=== PATIENT | female | born 1990 | race Caucasian/White ===

== ENCOUNTER 2016-06-22 19:48 | Emergency (ER) | payer OTHER ==
[~2016-06-22] VITALS: Ht 167.6 cm; Wt 106.6 kg
[~2016-06-22 19:48] MED LIST: ACET-654 PO; ACET50TA PO; ADDE30CA PO; ADDE5TAB5 PO; CYCL10TA PO; GABA600T PO; HYDR-3713 PO; IBUP60TA PO; NORCOTAB PO; PREN1CAP8 PO
[2016-06-22] MEDS ORDERED: SERTRALINE PO (20:02)
[2016-06-22] MEDS ORDERED: DEXTROAMP-AMPHETAMIN PO (20:02)
[2016-06-22] MEDS ORDERED: HYDROXYZINE PO (20:02)
[2016-06-22] MEDS ORDERED: LYRI75CA PO (20:02)
--- NOTE | 2016-06-22 22:20 | REPUSA ---
MRI of the lumbar spine without contrast Clinical statement: Pain. Incontinence. Technique: Multiecho multiplanar MRI images of the lumbar spine were obtained without administration of contrast. No comparison is available. Findings: The lumbar vertebral bodies are in satisfactory position and alignment. No fractures or dis locations are demonstrated. Normal heterogeneous bone marrow signal is noted. No osseous tumors are s een. There is disc height loss and signal loss demonstrated at L5/S1. The other intervertebral disc h eights are well maintained and demonstrate normal signal. The filum terminale and conus medullaris ap pear unremarkable. The spinal cord demonstrates normal signal and contour. The surrounding soft tissu es are within normal limits. There is mild disc bulging at L5/S1. There is no evidence of disc herniation or central canal stenosi s. At the other lumbar vertebral levels, there is no evidence of disc herniation or protrusion. There is no central canal stenosis. The neural foramina are patent bilaterally. Impression: Minimal degenerative disc disease with disc bulging at L5/S1, without evidence of central canal stenosis or neural foraminal narrowing. Otherwise unremarkable examination. ER physician was notified of these findings at 10:16 PM on 06/22/2016.
[2016-06-22 23:09] LABS: METHADONE URINE POSITIVE (NEGATIVE)
[2016-06-22 23:17] VITALS: BP 134/74
[2016-06-22] MEDS ORDERED: MACR100C3 PO (23:35)
[2016-06-22] MEDS ORDERED: KETOROLAC 30 MG/ML VIAL (J1885) As Ordered ONE (23:48)
[2016-06-23] MEDS ORDERED: KETOROLAC 30 MG/ML VIAL (J1885) IM ONE
== END 2016-06-22 23:58 | disposition home or self-care (01) ==
LOC: M ED 21:02
DX: N39.0 Urinary tract infection, site not specified (principal); M54.9 Dorsalgia, unspecified; G89.29 Other chronic pain; F17.210 Nicotine dependence, cigarettes, uncomplicated; Z88.5 Allergy status to narcotic agent; Z79.899 Other long term (current) drug therapy

== ENCOUNTER → 2016-06-25 | Outpatient (CLI) | payer OTHER ==
[~2016-06-25] MED LIST changes: +DEXTROAMP-AMPHETAMIN PO; +HYDROXYZINE PO; +LYRI75CA PO; +MACR100C3 PO; +SERTRALINE PO
--- NOTE | 2016-06-25 17:23 | REP ---
WHOLE-BODY BONE SCAN: 06/25/2016: Comparison: MRI lumbar spine 06/22/2016, x-ray left hip 11/07/2015. Clinical history: Back pain, neck pain. Autoimmune disease. Evaluate for systemic bone abnormalities. Technique: The patient received 21.9 mCi technetium 99m - MDP via an IV. Anterior and posterior delayed images of the whole body along with anterior posterior oblique images of the pelvis, chest, and lateral views of the head and neck were provided. Lung bone activity is noted to be symmetric and normal throughout. There is no abnormal activity about the ribs. The AC and glenohumeral joints, sternoclavicular joints, hips, knees, ankles and feet are normal for age. I see no abnormal uptake in the SI joints or hips. No pelvic abnormality. Uptake in the kidneys and bladder noted and are unremarkable. The cervical spine shows no abnormal uptake. There is some increased uptake in the paranasal sinuses and also about the mandible suggesting chronic sinus and dental disease. No abnormal uptake about the calvarium. With attention to the thoracic and lumbar spine, there was no vertebral body uptake or abnormal posterior element uptake. There are no vertebral body uptake or abnormal posterior element uptake. Sacrum unremarkable. Impression: 1. No scintigraphic evidence for bony metastatic disease or any significant arthritis. There is a bilateral paranasal sinus and mandibular uptake suggesting chronic sinus and dental disease. Otherwise negative. Signed by Priyank Ortiz MD 06/25/2016 08:16 P
== END ==
LOC: M RAD 09:28
PROVIDERS: ATTEND Physical Medicine & Rehabilitation
DX: M47.897 Other spondylosis, lumbosacral region (principal)

== ENCOUNTER → 2016-09-20 | Outpatient (CLI) | payer MEDICAID ==
[~2016-09-20] MED LIST changes: -ACET-654 PO; +ACET1TAB17 PO; +ADDE1TAB14 PO; -ADDE30CA PO; +ADDE30CA3 PO; -ADDE5TAB5 PO; +CONRAY-43 43% 50ML VIAL (Q9960) As Ordered ONE; -MACR100C3 PO; +MACR100C43 PO
--- NOTE | 2016-09-20 12:14 | REP ---
MR arthrogram left hip: History: Left hip pain. Comparison studies: Comparison radiographs November 07, 2015. Comparison bone scan June 25, 2016. Technique: Precontrast imaging includes coronal T1 and T2-weighted scans of both hips. Postcontrast small field of view high resolution axial, coronal and sagittal images are acquired in T1 and T2-weighted scans with fat saturation. MR arthrographic findings: Pre injection MR imaging demonstrates normal cortical and medullary bone signal intensity in the proximal femurs bilaterally. There is no evidence to suggest avascular necrosis. There is a small quantity of hip joint fluid bilaterally and symmetrically. No ovarian or uterine abnormality is seen. No pelvic mass or adenopathy is observed. No abdominal wall defect is observed. Head neck junction morphology is normal in the proximal femur. Post injection MR imaging shows good filling and enhancement of the left hip articulation. There is no evidence of acetabular labral disruption. No loose body is seen. The ligamentum teres is intact. No juxta-articular mass or cyst is seen. Tendon insertions are unremarkable. Impression: Unremarkable MR arthrography left hip. Signed by Jaime Kennedy MD 09/20/2016 01:18 P
--- NOTE | 2016-09-22 08:46 | REP ---
LEFT HIP ARTHROGRAM: The procedure was performed under the direct supervision of Dr. Kennedy. The benefits and risks including but not limited to pain, infection, bleeding and anaphylaxis were explained to the patient and informed consent was obtained. The left femoral neck was localized using fluoroscopic guidance. The skin was prepped and draped in a sterile fashion. 1% lidocaine was used as a local anesthetic. Using fluoroscopic guidance, a 22-gauge spinal needle was inserted and advanced to the femoral neck. 0.5 mL of Conray 43 was injected to verify placement. 11 mL of a solution containing 20 mL of sterile saline and 0.15 mL of ProHance was injected into the joint space. The needle was removed and the patient was taken to MRI for post procedural imaging. The patient tolerated the procedure well and there were immediate complications. 1 second of fluoroscopy time was utilized for this procedure. Reviewed by GUALBERTO Romero 09/22/2016 12:54 PEdited and Signed by Jaime Kennedy MD 09/22/2016 03:25 P
== END ==
LOC: M RADPRO 07:42
PROVIDERS: ATTEND Physical Medicine & Rehabilitation
DX: M25.552 Pain in left hip (principal); Z88.5 Allergy status to narcotic agent
CPT/HCPCS: 27093; 73723; 77002; A9576; Q9960

== ENCOUNTER → 2016-12-21 | Outpatient (REF) | payer OTHER ==
[~2016-12-21] MED LIST changes: -CONRAY-43 43% 50ML VIAL (Q9960) As Ordered ONE
[2016-12-24 00:07] LABS: Candida species Negative (Negative); Gardnerella vaginalis Positive (Negative); Trichamonas vaginalis Negative (Negative)
== END ==
LOC: M SMT 16:53
PROVIDERS: ATTEND Specialist
DX: N89.8 Other specified noninflammatory disorders of vagina (principal)

== ENCOUNTER 2018-12-08 19:16 | Emergency (ER) | payer OTHER ==
[~2018-12-08] VITALS: Ht 170.2 cm; Wt 106.8 kg
[~2018-12-08 19:16] MED LIST changes: -ACET1TAB17 PO; +ACET1TAB55 PO; -ACET50TA PO; -GABA600T PO; +GABA600T4 PO; +HYDR-3715 PO; +IBUP600T42 PO; -IBUP60TA PO; +MAPA500T2 PO; -NORCOTAB PO
[2018-12-08] MEDS ORDERED: METH10CO3 PO (19:48)
[2018-12-08] MEDS ORDERED: LISI-538 (19:48)
[2018-12-08] MEDS ORDERED: BUPR150T5 (19:48)
[2018-12-08] MEDS ORDERED: GABA600T4 (19:48)
[2018-12-08] MEDS ORDERED: NS 1,000 ML IV ONE (20:30)
[2018-12-08 20:51] LABS: BASO % 0.3 % (0.0-1.0); EOS # 0.5 10^3/uL (0.0-0.5); EOS % 7.1 % (0.0-3.0); HEMATOCRIT 34.3 % (36.0-47.0); HEMOGLOBIN 11.5 g/dl (12.0-15.5); LYMPH # 2.5 10^3/uL (1.5-5.0); LYMPH % 38.9 % (24.0-44.0); MEAN CORPUSCULAR HEMOGLOBIN 29.6 pg (27.0-33.0); MEAN CORPUSCULAR HGB CONC 33.5 g/dl (32.0-36.5); MEAN CORPUSCULAR VOLUME 88.4 fl (80.0-96.0); MONO # 0.5 10^3/uL (0.0-0.8); MONO % 6.9 % (0.0-5.0); NEUTROPHILS % 46.6 % (36.0-66.0); PLATELET COUNT, AUTOMATED 209 10^3/uL (150-450); RED BLOOD COUNT 3.88 10^6/uL (4.00-5.40); WHITE BLOOD COUNT 6.5 10^3/uL (4.0-10.0)
[2018-12-08 21:00] LABS: HCG, SERUM QUALITATIVE NEGATIVE (NEGATIVE)
[2018-12-08 21:03] LABS: BLOOD UREA NITROGEN 9 MG/DL (7-18); CARBON DIOXIDE LEVEL 31 MEQ/L (21-32); CHLORIDE LEVEL 104 MEQ/L (98-107); CK-MB VALUE MASS 2.7 NG/ML (<3.6); CPK CREATINE PHOSPHOKINASE 230 U/L (26-192); CREATININE FOR GFR 0.77 MG/DL (0.55-1.30); GLOMERULAR FILTRATION RATE > 60.0 (>60); GLUCOSE, FASTING 104 MG/DL (70-100); MB/CK RELATIVE INDEX 1.17 (< OR =4); NT-PRO BNP 56 PG/ML (<125); POTASSIUM SERUM 3.9 MEQ/L (3.5-5.1); SODIUM LEVEL 140 MEQ/L (136-145); TROPONIN I < 0.02 NG/ML (< 0.10)
[2018-12-08] MEDS ORDERED: ISOVUE-370 76% 100ML VIAL (Q9967) As Ordered ONE (21:06)
--- NOTE | 2018-12-08 21:43 | REPVR ---
EXAM: CT Angiography Chest With Contrast EXAM DATE/TIME: 12/08/18 (9:13pm) CLINICAL HISTORY: 27 year old female with lower extremity swelling. Possible pulmonary embolism. TECHNIQUE: Imaging protocol: Computed tomographic angiography of the chest with intravenous contrast. 3D rendering: MIP reconstructed images were created and reviewed. Radiation optimization: All CT scans at this facility use at least one of these dose optimization techniques: automated exposure control; mA and/or kV adjustment per patient size (includes targeted exams where dose is matched to clinical indication); or iterative reconstruction. Contrast material: Isovue 370 Contrast volume: 100 ml Contrast route: IV COMPARISON: Frontal CXR of 02/13/15 FINDINGS: Pulmonary arteries: Normal. No pulmonary emboli. Aorta: Unremarkable. No aortic aneurysm. No aortic dissection. Lungs: No consolidation. No masses. Small benign-appearing peripheral MARIA ELENA calcification, far laterally (Ser. 401 - Image #27). Pleural space: Unremarkable. No pneumothorax. No pleural effusions. Heart: Unremarkable. No cardiomegaly. No pericardial effusion. Lymph nodes: Unremarkable. No enlarged lymph nodes. Bones/joints: Unremarkable. No acute fracture. Soft tissues: Unremarkable. IMPRESSION: No acute findings. No filling defects suspicious for pulmonary emboli are seen. There is no CT evidence of aortic dissection nor leakage. No aortic aneurysm is appreciated. Electronically signed by: Julia Mcmahon On 12/08/2018 21:43:04 PM
--- NOTE | 2018-12-08 21:47 | REPVR ---
EXAM: US Duplex Bilateral Lower Extremity Veins EXAM DATE/TIME: 12/08/18 (8:59pm) CLINICAL HISTORY: 27 year old female with bilateral leg swelling (worse on right side) TECHNIQUE: Imaging protocol: Real-time duplex ultrasound of the Bilateral Lower Extremities with 2-D tineo scale, color Doppler flow and spectral waveform analysis with image documentation. Complete examination focused on the bilateral lower extremity veins. COMPARISON: No relevant prior studies available FINDINGS: Right deep veins: Unremarkable. The common femoral, femoral, proximal profunda femoral, popliteal, and upper calf veins are patent without thrombus. Normal Doppler waveforms. Normal compressibility and/or augmentation response. Right superficial veins: Saphenofemoral junction is patent without thrombus. Left deep veins: Unremarkable. The common femoral, femoral, proximal profunda femoral, popliteal and upper calf veins are patent without thrombus. Normal Doppler waveforms. Normal compressibility and/or augmentation response. Left superficial veins: Saphenofemoral junction is patent without thrombus. Soft tissues: Unremarkable. IMPRESSION: No acute findings. No evidence of deep vein thrombosis. Both legs were examined. Electronically signed by: Julia Mcmahon On 12/08/2018 21:46:38 PM
[2018-12-09 00:29] VITALS: BP 124/60
--- NOTE | 2018-12-09 05:55 | ECGEPIP ---
[facility] - ED Test Date: 2018-12-08 Pat Name: KENYA WINN Department: Room: - Gender: Female Rn Liaison: GA : 1990 Requested By: BRANDYN Jimenez Order Number: [id number] Reading MD: Mazin Vargas Measurements Intervals [place] Rate: 109 P: 26 IN: 167 QRS: 29 QRSD: 87 T: 11 QT: 353 QTc: 476 Interpretive Statements SINUS TACHYCARDIA NO PRIORS FOR COMPARISON Electronically Signed on 12-09-2018 5:55:08 EDT by Mazin Vargas
== END 2018-12-09 00:31 | disposition home or self-care (01) ==
LOC: M ED 19:16
DX: R60.0 Localized edema (principal); R00.0 Tachycardia, unspecified; R06.02 Shortness of breath; R53.83 Other fatigue; F17.200 Nicotine dependence, unspecified, uncomplicated; Z88.5 Allergy status to narcotic agent; Z79.899 Other long term (current) drug therapy
CPT/HCPCS: 71275; 80048; 82550; 82553; 83880; 84703; 85025; 93005; 93041; 93970; 94760; 96360; 96361; 99285; Q9967

== ENCOUNTER → 2020-08-22 | Outpatient (CLI) | payer OTHER ==
[~2020-08-22] MED LIST changes: +BUPR150T5; +CYCL-707 PO; -CYCL10TA PO; +GABA600T4; +LISI20TA33; +METH10CO3 PO
[2020-08-22 08:22] LABS: BASO % 0.3 % (0.0-1.0); EOS # 0.1 10^3/uL (0.0-0.5); EOS % 1.9 % (0.0-3.0); HEMATOCRIT 40.3 % (36.0-47.0); HEMOGLOBIN 12.2 g/dl (12.0-15.5); LYMPH # 2.4 10^3/uL (1.5-5.0); LYMPH % 40.9 % (24.0-44.0); MEAN CORPUSCULAR HGB CONC 30.3 g/dl (32.0-36.5); MEAN CORPUSCULAR VOLUME 89.2 fl (80.0-96.0); MONO # 0.4 10^3/uL (0.0-0.8); MONO % 7.4 % (2.0-8.0); NEUTROPHILS # 2.9 10^3/uL (1.5-8.5); NEUTROPHILS % 49.3 % (36.0-66.0); PLATELET COUNT, AUTOMATED 315 10^3/uL (150-450); RED BLOOD COUNT 4.52 10^6/uL (4.00-5.40); WHITE BLOOD COUNT 5.8 10^3/uL (4.0-10.0)
[2020-08-22 08:58] LABS: ALBUMIN 3.5 GM/DL (3.2-5.2); ALT/SGPT 43 U/L (12-78); BILIRUBIN,TOTAL 0.2 MG/DL (0.2-1.0); BLOOD UREA NITROGEN 10 MG/DL (7-18); CALCIUM LEVEL 8.9 MG/DL (8.5-10.1); CARBON DIOXIDE LEVEL 30 MEQ/L (21-32); CHLORIDE LEVEL 104 MEQ/L (98-107); CREATININE FOR GFR 0.69 MG/DL (0.55-1.30); GLOMERULAR FILTRATION RATE > 60.0 (>60); GLUCOSE, FASTING 110 MG/DL (70-100); POTASSIUM SERUM 3.9 MEQ/L (3.5-5.1); SODIUM LEVEL 140 MEQ/L (136-145); TOTAL PROTEIN 7.5 GM/DL (6.4-8.2)
--- NOTE | 2020-08-22 15:10 | ECGEPIP ---
[facility] Test Date: 2020-08-22 Pat Name: KENYA MASTERS Department: Room: - Gender: Female Manager Paper: : 1990 Requested By: Hamzah Navarro Order Number: [id number] Reading MD: Xavier Martinez Measurements Intervals [place] Rate: 102 P: -23 IA: 128 QRS: 48 QRSD: 90 T: 48 QT: 302 QTc: 393 Interpretive Statements Sinus tachycardia Nonspecific ST-T wave abnormality No significant change when compared to prior tracing of 12/08/2018 Electronically Signed on 08-22-2020 15:10:24 EDT by Xavier Martinez
== END ==
LOC: M LAB 07:01
PROVIDERS: ATTEND Psychiatry & Neurology Addiction Psychiatry
DX: F11.20 Opioid dependence, uncomplicated (principal)

== ENCOUNTER 2021-03-30 16:01 | Emergency (ER) | payer OTHER ==
[~2021-03-30] VITALS: Ht 170.2 cm; Wt 114.4 kg
[2021-03-30 22:43] LABS: BASO % 0.3 % (0.0-1.0); EOS # 0.3 10^3/uL (0.0-0.5); EOS % 4.5 % (0.0-3.0); HEMATOCRIT 38.9 % (36.0-47.0); HEMOGLOBIN 12.4 g/dl (12.0-15.5); LYMPH # 2.8 10^3/uL (1.5-5.0); LYMPH % 45.3 % (24.0-44.0); MEAN CORPUSCULAR HEMOGLOBIN 28.1 pg (27.0-33.0); MEAN CORPUSCULAR HGB CONC 31.9 g/dl (32.0-36.5); MONO # 0.3 10^3/uL (0.0-0.8); MONO % 5.3 % (2.0-8.0); NEUTROPHILS # 2.8 10^3/uL (1.5-8.5); NEUTROPHILS % 44.4 % (36.0-66.0); PLATELET COUNT, AUTOMATED 243 10^3/uL (150-450); RED BLOOD COUNT 4.42 10^6/uL (4.00-5.40); WHITE BLOOD COUNT 6.2 10^3/uL (4.0-10.0)
[2021-03-30 23:13] LABS: ALBUMIN 3.8 GM/DL (3.2-5.2); ALT/SGPT 27 U/L (12-78); BILIRUBIN,TOTAL 0.2 MG/DL (0.2-1.0); BLOOD UREA NITROGEN 10 MG/DL (7-18); C REACTIVE PROTEIN QUANTITATIV 0.96 MG/DL (0.00-0.30); CALCIUM LEVEL 8.8 MG/DL (8.5-10.1); CARBON DIOXIDE LEVEL 33 MEQ/L (21-32); CHLORIDE LEVEL 105 MEQ/L (98-107); CREATININE FOR GFR 0.75 MG/DL (0.55-1.30); GLOMERULAR FILTRATION RATE > 60.0 (>60); GLUCOSE, FASTING 87 MG/DL (70-100); POTASSIUM SERUM 4.1 MEQ/L (3.5-5.1); SODIUM LEVEL 140 MEQ/L (136-145); TOTAL PROTEIN 7.5 GM/DL (6.4-8.2)
--- NOTE | 2021-03-30 23:49 | REPVR ---
PROCEDURE INFORMATION: Exam: US Abdomen, Limited; Soft Tissue Exam date and time: 03/30/2021 11:01 PM Age: 30 years old Clinical indication: Abdominal pain; Localized; Left lower quadrant (llq); Additional info: Left lower quadrant abdominal wound, assess for collection TECHNIQUE: Imaging protocol: US abdomen. Real time ultrasound with image documentation. Limited exam focused on the soft tissues. COMPARISON: US OBS FOLL UP OR REPEAT EACH GES 07/22/2015 8:59 AM FINDINGS: No soft tissue edema or fluid collection is visualized. No discrete mass. No soft tissue hyperemia. IMPRESSION: No fluid collection is visualized. Electronically signed by: Curly Saba On 03/30/2021 23:49:07 PM
[2021-03-31] MEDS ORDERED: CEFU50TA PO
[2021-03-31] MEDS ORDERED: ceFAZolin SOD 2 GM in IV 1 EA IV ONE ×2
[2021-03-31] MEDS ORDERED: cefTRIAXone SOD 2 GM in D5W MINI-BAG PLUS 50 ML IV ONE (00:05)
[2021-03-31 01:02] VITALS: BP 112/62
== END 2021-03-31 01:32 | disposition home or self-care (01) ==
LOC: M ED 16:01
DX: L03.311 Cellulitis of abdominal wall (principal); I10 Essential (primary) hypertension; K21.9 Gastro-esophageal reflux disease without esophagitis; M79.7 Fibromyalgia; F32.A Depression, unspecified; F19.10 Other psychoactive substance abuse, uncomplicated
CPT/HCPCS: 76705; 80053; 85025; 86140; 87040; 96365; 99283; J0696

== ENCOUNTER 2021-05-03 11:29 | Emergency (ER) | payer OTHER ==
[~2021-05-03] VITALS: Ht 170.2 cm; Wt 106.8 kg
[~2021-05-03 11:29] MED LIST changes: +CEFU50TA PO
[2021-05-03 13:45] LABS: BASO % 0.4 % (0.0-1.0); EOS # 0.3 10^3/uL (0.0-0.5); EOS % 4.7 % (0.0-3.0); HEMATOCRIT 36.2 % (36.0-47.0); HEMOGLOBIN 11.6 g/dl (12.0-15.5); LYMPH # 2.7 10^3/uL (1.5-5.0); LYMPH % 38.6 % (24.0-44.0); MEAN CORPUSCULAR HEMOGLOBIN 27.5 pg (27.0-33.0); MEAN CORPUSCULAR VOLUME 85.8 fl (80.0-96.0); MONO # 0.4 10^3/uL (0.0-0.8); MONO % 5.1 % (2.0-8.0); NEUTROPHILS # 3.6 10^3/uL (1.5-8.5); NEUTROPHILS % 51.1 % (36.0-66.0); PLATELET COUNT, AUTOMATED 233 10^3/uL (150-450); RED BLOOD COUNT 4.22 10^6/uL (4.00-5.40)
[2021-05-03] MEDS ORDERED: RISP-8 (13:50)
[2021-05-03] MEDS ORDERED: CLON0.2T (13:50)
[2021-05-03] MEDS ORDERED: TRAZ-257 (13:50)
[2021-05-03] MEDS ORDERED: BUPR300T92 (13:50)
[2021-05-03] MEDS ORDERED: ACETAMINOPHEN 500 MG TAB PO ONE (14:05)
[2021-05-03 14:14] LABS: MONO SCRN NEGATIVE (NEGATIVE)
[2021-05-03 14:15] LABS: ALBUMIN 4.3 GM/DL (3.2-5.2); ALT/SGPT 40 U/L (12-78); BILIRUBIN,DIRECT < 0.1 MG/DL (0.0-0.2); BILIRUBIN,TOTAL 0.2 MG/DL (0.2-1.0); FREE T4 0.95 NG/DL (0.76-1.46); LIPASE 72 U/L (73-393); TOTAL PROTEIN 7.6 GM/DL (6.4-8.2)
[2021-05-03] MEDS ORDERED: ISOVUE-370 76% 100ML VIAL As Ordered ONE (14:39)
[2021-05-03 16:11] VITALS: BP 129/79
[2021-05-03 16:28] LABS: GC DNA AMPLIFICATION NEGATIVE (NEGATIVE)
[2021-05-03] MEDS ORDERED: BACT800T5 PO (16:45)
[2021-05-03] MEDS ORDERED: BACTRIM 160MG/800MG DS TAB PO ONE (17:15)
== END 2021-05-03 17:26 | disposition home or self-care (01) ==
LOC: M ED 11:29
DX: N39.0 Urinary tract infection, site not specified (principal); F19.10 Other psychoactive substance abuse, uncomplicated; M79.7 Fibromyalgia; K21.9 Gastro-esophageal reflux disease without esophagitis; G47.33 Obstructive sleep apnea (adult) (pediatric); I10 Essential (primary) hypertension; Z88.6 Allergy status to analgesic agent; Z88.8 Allergy status to other drugs, medicaments and biological substances
CPT/HCPCS: 36415; 74177; 80047; 80076; 81001; 83690; 84439; 84443; 84702; 85025; 86308; 86644; 86645; 87086; 87471; 87808; 87810; 87850; 99284; Q9967

== ENCOUNTER 2021-07-14 14:04 | Emergency (ER) | payer OTHER ==
[~2021-07-14] VITALS: Ht 170.2 cm; Wt 113.4 kg
[~2021-07-14 14:04] MED LIST changes: +BACT800T5 PO; +BUPR-71; -BUPR150T5; +BUPR300T92; +CLON0.2T; +RISP-8; +TRAZ-257
[2021-07-14 14:05] VITALS: BP 147/94
[2021-07-14 17:54] LABS: HEMATOCRIT 34.7 % (36.0-47.0); HEMOGLOBIN 10.9 g/dl (12.0-15.5); MEAN CORPUSCULAR HEMOGLOBIN 27.5 pg (27.0-33.0); MEAN CORPUSCULAR HGB CONC 31.4 g/dl (32.0-36.5); MEAN CORPUSCULAR VOLUME 87.4 fl (80.0-96.0); PLATELET COUNT, AUTOMATED 287 10^3/uL (150-450); RED BLOOD COUNT 3.97 10^6/uL (4.00-5.40); WHITE BLOOD COUNT 6.4 10^3/uL (4.0-10.0)
[2021-07-14 18:23] LABS: ATYPICAL LYMPH 4 % (0-5); EOSINOPHILS 2 % (0-3); LYMPHOCYTES 45 % (16-44); MONOCYTES 4 % (0-5); NEUTROPHILS 45 % (28-66); PLATELET ESTIMATE NORMAL (NORMAL)
[2021-07-14 18:25] LABS: ERYTHROCYTE SEDIMENTATION RATE 51 mm/hr (0-20)
[2021-07-14] MEDS ORDERED: CLINDAMYCIN 900 MG in IV 1 EA IV ONE (19:15)
[2021-07-14 19:20] LABS: BLOOD UREA NITROGEN 11 MG/DL (7-18); C REACTIVE PROTEIN QUANTITATIV 1.92 MG/DL (0.00-0.30); CALCIUM LEVEL 9.2 MG/DL (8.5-10.1); CARBON DIOXIDE LEVEL 29 MEQ/L (21-32); CHLORIDE LEVEL 108 MEQ/L (98-107); GLOMERULAR FILTRATION RATE > 60.0 (>60); GLUCOSE, FASTING 73 MG/DL (70-100); HEPATITIS B CORE ANTIBODY IGM NEGATIVE (NEGATIVE); HEPATITIS B SURFACE ANTIGEN NEGATIVE (NEGATIVE); HEPATITIS C VIRUS ABY INDEX 0.1 INDEX (<0.8); POTASSIUM SERUM 4.2 MEQ/L (3.5-5.1); SODIUM LEVEL 143 MEQ/L (136-145)
[2021-07-14] MEDS ORDERED: CLEO300C2 PO (20:31)
[2021-07-17] MEDS ORDERED: SULF1TAB23 PO (08:54)
== END 2021-07-14 20:56 | disposition home or self-care (01) ==
LOC: M ED 14:04
DX: L03.113 Cellulitis of right upper limb (principal); F19.10 Other psychoactive substance abuse, uncomplicated; R53.83 Other fatigue; I10 Essential (primary) hypertension; R56.9 Unspecified convulsions; M79.7 Fibromyalgia; K21.9 Gastro-esophageal reflux disease without esophagitis; E28.2 Polycystic ovarian syndrome; G47.33 Obstructive sleep apnea (adult) (pediatric); F17.200 Nicotine dependence, unspecified, uncomplicated; Z88.6 Allergy status to analgesic agent; Z88.8 Allergy status to other drugs, medicaments and biological substances; Z79.899 Other long term (current) drug therapy

== ENCOUNTER 2021-08-09 08:33 | Emergency (ER) | payer OTHER ==
[~2021-08-09] VITALS: Ht 170.2 cm; Wt 108.8 kg
[~2021-08-09 08:33] MED LIST changes: +CLEO300C2 PO; +SULF1TAB23 PO
[2021-08-09] MEDS ORDERED: DIVA250T67 (08:45)
[2021-08-09] MEDS ORDERED: NS 1,000 ML IV ONE (11:20)
[2021-08-09 11:48] LABS: BASO % 0.2 % (0.0-1.0); EOS % 0.4 % (0.0-3.0); HEMATOCRIT 39.1 % (36.0-47.0); HEMOGLOBIN 12.7 g/dl (12.0-15.5); LYMPH # 1.7 10^3/uL (1.5-5.0); LYMPH % 36.4 % (24.0-44.0); MEAN CORPUSCULAR HEMOGLOBIN 27.1 pg (27.0-33.0); MEAN CORPUSCULAR HGB CONC 32.5 g/dl (32.0-36.5); MEAN CORPUSCULAR VOLUME 83.4 fl (80.0-96.0); MONO # 0.2 10^3/uL (0.0-0.8); MONO % 4.2 % (2.0-8.0); NEUTROPHILS # 2.8 10^3/uL (1.5-8.5); NEUTROPHILS % 58.6 % (36.0-66.0); PLATELET COUNT, AUTOMATED 294 10^3/uL (150-450); RED BLOOD COUNT 4.69 10^6/uL (4.00-5.40); WHITE BLOOD COUNT 4.8 10^3/uL (4.0-10.0)
[2021-08-09 12:09] LABS: ERYTHROCYTE SEDIMENTATION RATE 64 mm/hr (0-20)
[2021-08-09 12:29] LABS: ALBUMIN 4.4 GM/DL (3.2-5.2); ALT/SGPT 39 U/L (12-78); BILIRUBIN,DIRECT 0.1 MG/DL (0.0-0.2); BILIRUBIN,TOTAL 0.3 MG/DL (0.2-1.0); BLOOD UREA NITROGEN 16 MG/DL (7-18); C REACTIVE PROTEIN QUANTITATIV 1.13 MG/DL (0.00-0.30); CALCIUM LEVEL 9.7 MG/DL (8.5-10.1); CARBON DIOXIDE LEVEL 28 MEQ/L (21-32); CHLORIDE LEVEL 101 MEQ/L (98-107); CREATININE FOR GFR 0.99 MG/DL (0.55-1.30); FREE T4 1.25 NG/DL (0.76-1.46); GLOMERULAR FILTRATION RATE > 60.0 (>60); GLUCOSE, FASTING 94 MG/DL (70-100); MAGNESIUM LEVEL 2.1 MG/DL (1.8-2.4); SODIUM LEVEL 135 MEQ/L (136-145); TOTAL PROTEIN 9.1 GM/DL (6.4-8.2)
[2021-08-09 12:33] VITALS: BP 143/73
[2021-08-09 13:22] LABS: RSV AMPLIFICATION NEGATIVE (NEGATIVE)
[2021-08-09 14:27] LABS: AMPHETAMINES LEVEL URINE NEGATIVE (NEGATIVE); BARBITURATES URINE NEGATIVE (NEGATIVE); BENZODIAZEPINES URINE NEGATIVE (NEGATIVE); CANNABINOIDS URINE NEGATIVE (NEGATIVE); COCAINE METABOLITE URINE NEGATIVE (NEGATIVE); METHADONE URINE POSITIVE (NEGATIVE); OPIATES URINE NEGATIVE (NEGATIVE); PHENCYCLIDINE URINE NEGATIVE (NEGATIVE)
== END 2021-08-09 14:57 | disposition home or self-care (01) ==
LOC: M ED 08:33 → EEVIPCON 08:33 → M ED 14:57
DX: R42 Dizziness and giddiness (principal); I10 Essential (primary) hypertension; F17.200 Nicotine dependence, unspecified, uncomplicated

== ENCOUNTER 2021-10-21 10:31 | Inpatient (IN) | payer MEDICAID, OTHER ==
[~2021-10-21] VITALS: Ht 170.2 cm; Wt 106.8 kg
[~2021-10-21 10:31] MED LIST changes: +DIVA250T67
[2021-10-21] MEDS ORDERED: DIVA500T94 PO (10:41)
[2021-10-21] MEDS ORDERED: CLON-412 PO (10:41)
[2021-10-21 11:24] LABS: HEMOGLOBIN 11.7 g/dl (12.0-15.5); MEAN CORPUSCULAR HEMOGLOBIN 27.4 pg (27.0-33.0); MEAN CORPUSCULAR HGB CONC 32.5 g/dl (32.0-36.5); MEAN CORPUSCULAR VOLUME 84.3 fl (80.0-96.0); PLATELET COUNT, AUTOMATED 234 10^3/uL (150-450); RED BLOOD COUNT 4.27 10^6/uL (4.00-5.40); WHITE BLOOD COUNT 6.5 10^3/uL (4.0-10.0)
[2021-10-21 11:39] LABS: HCG, SERUM QUALITATIVE NEGATIVE (NEGATIVE)
[2021-10-21 11:54] LABS: AMPHETAMINES LEVEL URINE POSITIVE (NEGATIVE); BARBITURATES URINE NEGATIVE (NEGATIVE); BENZODIAZEPINES URINE POSITIVE (NEGATIVE); CANNABINOIDS URINE NEGATIVE (NEGATIVE); COCAINE METABOLITE URINE NEGATIVE (NEGATIVE); METHADONE URINE POSITIVE (NEGATIVE); OPIATES URINE NEGATIVE (NEGATIVE); PHENCYCLIDINE URINE NEGATIVE (NEGATIVE)
[2021-10-21 11:57] LABS: ACETAMINOPHEN LEVEL < 2.0 UG/ML (10.0-30.0); ALT/SGPT 33 U/L (12-78); BILIRUBIN,DIRECT 0.2 MG/DL (0.0-0.2); BILIRUBIN,TOTAL 0.4 MG/DL (0.2-1.0); BLOOD UREA NITROGEN 11 MG/DL (7-18); CARBON DIOXIDE LEVEL 30 MEQ/L (21-32); CHLORIDE LEVEL 105 MEQ/L (98-107); CREATININE FOR GFR 0.85 MG/DL (0.55-1.30); ETHYL ALCOHOL (ETHANOL) < 0.003 % (0.000-0.010); GLOMERULAR FILTRATION RATE > 60.0 (>60); GLUCOSE, FASTING 82 MG/DL (70-100); POTASSIUM SERUM 3.8 MEQ/L (3.5-5.1); SALICYLATE LEVEL 1.8 MG/DL (5.0-30.0); SODIUM LEVEL 140 MEQ/L (136-145); TOTAL PROTEIN 7.7 GM/DL (6.4-8.2)
[2021-10-21 12:00] LABS: RSV AMPLIFICATION NEGATIVE (NEGATIVE)
[2021-10-21] MEDS ORDERED: IBUP-1764 PO (17:31)
[2021-10-21] MEDS ORDERED: HOME MED LIST COMPLETE! XX SCH (17:35)
[2021-10-22] MEDS ORDERED: DIVALPROEX 500MG *ER* TAB PO ONE (09:00)
[2021-10-22] MEDS ORDERED: METHADONE 10MG TAB PO ONE (09:00)
[2021-10-22] MEDS ORDERED: DEPA250T32 PO (09:23)
[2021-10-22] MEDS: IBUPROFEN 600MG TAB PO PRN (16:56)
[2021-10-23] MEDS ORDERED: traZODone 50 MG TAB PO PRN (08:45)
[2021-10-23] MEDS ORDERED: MAALOX 30 ML SUSP *UDC PO PRN (08:45)
[2021-10-23] MEDS ORDERED: MOM 30ML SUSPENSION UDC PO PRN (08:45)
[2021-10-23] MEDS ORDERED: ACETAMINOPHEN TAB 650MG DOSE (2X325MG) PO PRN (08:45)
[2021-10-23] MEDS ORDERED: DIVALPROEX 250 MG TAB PO ONE (09:00)
[2021-10-23] MEDS ORDERED: DIVALPROEX 250 MG TAB PO SCH ×2 (09:00)
[2021-10-23] MEDS: METHADONE 10MG TAB PO SCH (09:33)
[2021-10-23 10:00] VITALS: BP 150/90
[2021-10-23] MEDS: diphenhydrAMINE 50MG CAP PO PRN (12:40)
[2021-10-23] MEDS: IBUPROFEN 600MG TAB PO PRN ×2 (12:40→20:17)
[2021-10-23 18:39] VITALS: BP 144/76
[2021-10-24 06:34] VITALS: BP 132/96
[2021-10-24] MEDS: METHADONE 10MG TAB PO SCH (07:58)
[2021-10-24] MEDS: DIVALPROEX 250 MG TAB PO SCH (07:58)
[2021-10-24] MEDS: IBUPROFEN 600MG TAB PO PRN ×2 (12:35→21:20)
[2021-10-24] MEDS: diphenhydrAMINE 50MG CAP PO PRN (12:35)
[2021-10-24 18:00] VITALS: BP 141/71
[2021-10-24] MEDS: MIRTAZAPINE 15 MG TAB PO SCH (21:19)
[2021-10-24] MEDS: QUEtiapine FUMARATE 50MG TAB PO SCH (21:19)
[2021-10-25 06:24] VITALS: BP 133/76
[2021-10-25] MEDS: DIVALPROEX 250 MG TAB PO SCH (08:07)
[2021-10-25] MEDS: diphenhydrAMINE 50MG CAP PO PRN (08:07)
[2021-10-25] MEDS: METHADONE 10MG TAB PO SCH (08:07)
[2021-10-25] MEDS: OLANZapine ORAL DISINTEGRATING TAB 5MG PO PRN (10:35)
[2021-10-25] MEDS: DOXYCYCLINE HYCLATE 100MG TABLET PO SCH ×2 (13:47→20:38)
[2021-10-25] MEDS: AUGMENTIN 875 MG TAB PO SCH ×2 (13:47→20:38)
[2021-10-25] MEDS: NEOSPORIN TOP OINT 15GM TOP SCH (15:55)
[2021-10-25 18:00] VITALS: BP 150/97
[2021-10-25] MEDS: IBUPROFEN 600MG TAB PO PRN (20:37)
[2021-10-25] MEDS: QUEtiapine FUMARATE 50MG TAB PO SCH (20:38)
[2021-10-25] MEDS: MIRTAZAPINE 15 MG TAB PO SCH (20:38)
[2021-10-26] MEDS: IBUPROFEN 600MG TAB PO PRN ×2 (05:55→12:51)
[2021-10-26 07:05] VITALS: BP 161/98
[2021-10-26 07:43] LABS: CHOLESTEROL RISK RATIO 7.866 (<5)
[2021-10-26] MEDS: DOXYCYCLINE HYCLATE 100MG TABLET PO SCH ×2 (08:07→21:18)
[2021-10-26] MEDS: OLANZapine ORAL DISINTEGRATING TAB 5MG PO PRN (08:07)
[2021-10-26] MEDS: AUGMENTIN 875 MG TAB PO SCH ×2 (08:08→21:19)
[2021-10-26] MEDS: METHADONE 10MG TAB PO SCH (08:08)
[2021-10-26] MEDS: NEOSPORIN TOP OINT 15GM TOP SCH (08:08)
[2021-10-26] MEDS ORDERED: ARIPiprazole 10 MG TAB PO ONE (13:15)
[2021-10-26] MEDS: LIDOCAINE 5% (LIDODERM) PATCH TD SCH (13:18)
[2021-10-26 18:00] VITALS: BP 140/79
[2021-10-26] MEDS: MIRTAZAPINE 15 MG TAB PO SCH (21:19)
[2021-10-26] MEDS: QUEtiapine FUMARATE 50MG TAB PO SCH (21:19)
[2021-10-26] MEDS: **NOTE PATIENT COMMENT** MISC XX SCH (21:20)
[2021-10-27 06:35] VITALS: BP 149/97
[2021-10-27] MEDS: LIDOCAINE 5% (LIDODERM) PATCH TD SCH (08:44)
[2021-10-27] MEDS: METHADONE 10MG TAB PO SCH (08:44)
[2021-10-27] MEDS: diphenhydrAMINE 50MG CAP PO PRN (08:44)
[2021-10-27] MEDS: NEOSPORIN TOP OINT 15GM TOP SCH (08:45)
[2021-10-27] MEDS: DOXYCYCLINE HYCLATE 100MG TABLET PO SCH ×2 (08:45→20:34)
[2021-10-27] MEDS: AUGMENTIN 875 MG TAB PO SCH ×2 (08:45→20:34)
[2021-10-27] MEDS: OLANZapine ORAL DISINTEGRATING TAB 5MG PO PRN (11:14)
[2021-10-27 17:41] VITALS: BP_SYST 114; BP_SYST 138; BP_DIAS 65; BP_DIAS 78
[2021-10-27] MEDS: **NOTE PATIENT COMMENT** MISC XX SCH (20:34)
[2021-10-27] MEDS: MIRTAZAPINE 15 MG TAB PO SCH (20:34)
[2021-10-27] MEDS ORDERED: OLANZapine 5 MG TAB PO SCH (21:00)
[2021-10-28 06:38] VITALS: BP 144/98
[2021-10-28] MEDS: AUGMENTIN 875 MG TAB PO SCH ×2 (08:12→21:07)
[2021-10-28] MEDS: DOXYCYCLINE HYCLATE 100MG TABLET PO SCH ×2 (08:14→21:07)
[2021-10-28] MEDS: LIDOCAINE 5% (LIDODERM) PATCH TD SCH (08:14)
[2021-10-28] MEDS: OLANZapine ORAL DISINTEGRATING TAB 5MG PO PRN ×2 (08:14→14:19)
[2021-10-28] MEDS: NEOSPORIN TOP OINT 15GM TOP SCH (08:14)
[2021-10-28] MEDS: METHADONE 10MG TAB PO SCH (08:14)
[2021-10-28] MEDS: IBUPROFEN 600MG TAB PO PRN (10:06)
[2021-10-28] MEDS: OLANZapine 5 MG TAB PO SCH ×2 (12:45→21:07)
[2021-10-28 17:44] VITALS: BP 160/90
[2021-10-28] MEDS: **NOTE PATIENT COMMENT** MISC XX SCH (21:00)
[2021-10-28] MEDS: MIRTAZAPINE 15 MG TAB PO SCH (21:07)
[2021-10-29 06:35] VITALS: BP 140/98
[2021-10-29] MEDS: DOXYCYCLINE HYCLATE 100MG TABLET PO SCH ×2 (08:50→20:57)
[2021-10-29] MEDS: AUGMENTIN 875 MG TAB PO SCH ×2 (08:50→20:57)
[2021-10-29] MEDS: OLANZapine 5 MG TAB PO SCH ×2 (08:50→20:57)
[2021-10-29] MEDS: METHADONE 10MG TAB PO SCH (08:51)
[2021-10-29] MEDS: NEOSPORIN TOP OINT 15GM TOP SCH (08:51)
[2021-10-29] MEDS: ATORVASTATIN 10 MG TAB PO SCH (08:51)
[2021-10-29] MEDS: IBUPROFEN 600MG TAB PO PRN (08:52)
[2021-10-29] MEDS: LIDOCAINE 5% (LIDODERM) PATCH TD SCH (08:56)
[2021-10-29] MEDS: OLANZapine ORAL DISINTEGRATING TAB 5MG PO PRN (12:30)
[2021-10-29 16:45] VITALS: BP 151/88
[2021-10-29] MEDS: diphenhydrAMINE 50MG CAP PO PRN (17:11)
[2021-10-29] MEDS: **NOTE PATIENT COMMENT** MISC XX SCH (20:55)
[2021-10-29] MEDS: MIRTAZAPINE 15 MG TAB PO SCH (20:57)
[2021-10-30 06:45] VITALS: BP 155/78
[2021-10-30] MEDS: DOXYCYCLINE HYCLATE 100MG TABLET PO SCH ×2 (08:38→20:07)
[2021-10-30] MEDS: METHADONE 10MG TAB PO SCH (08:39)
[2021-10-30] MEDS: OLANZapine 5 MG TAB PO SCH (08:39)
[2021-10-30] MEDS: ATORVASTATIN 10 MG TAB PO SCH (08:39)
[2021-10-30] MEDS: LIDOCAINE 5% (LIDODERM) PATCH TD SCH (08:40)
[2021-10-30] MEDS: NEOSPORIN TOP OINT 15GM TOP SCH (08:40)
[2021-10-30] MEDS: AUGMENTIN 875 MG TAB PO SCH ×2 (08:40→20:07)
[2021-10-30] MEDS: OLANZapine ORAL DISINTEGRATING TAB 5MG PO PRN (12:19)
[2021-10-30 15:38] VITALS: BP 180/108
[2021-10-30] MEDS ORDERED: LORazepam 2 MG TAB PO ONE (15:45)
[2021-10-30 16:15] VITALS: BP 180/98
[2021-10-30 17:25] VITALS: BP 166/97
[2021-10-30 19:06] LABS: BLOOD UREA NITROGEN 13 MG/DL (7-18); CALCIUM LEVEL 9.1 MG/DL (8.5-10.1); CARBON DIOXIDE LEVEL 31 MEQ/L (21-32); CHLORIDE LEVEL 102 MEQ/L (98-107); CREATININE FOR GFR 0.71 MG/DL (0.55-1.30); GLOMERULAR FILTRATION RATE > 60.0 (>60); GLUCOSE, FASTING 100 MG/DL (70-100); POTASSIUM SERUM 3.5 MEQ/L (3.5-5.1); SODIUM LEVEL 136 MEQ/L (136-145)
[2021-10-30] MEDS: NIFEdipine 30 MG XL TAB PO SCH (19:33)
[2021-10-30 19:37] VITALS: BP 160/70
[2021-10-30] MEDS: MIRTAZAPINE 15 MG TAB PO SCH (20:07)
[2021-10-30] MEDS: **NOTE PATIENT COMMENT** MISC XX SCH (20:08)
[2021-10-30 21:35] VITALS: BP 150/70
[2021-10-31 06:34] VITALS: BP 140/86
[2021-10-31] MEDS: METHADONE 10MG TAB PO SCH (08:29)
[2021-10-31] MEDS: NEOSPORIN TOP OINT 15GM TOP SCH (08:29)
[2021-10-31] MEDS: NIFEdipine 30 MG XL TAB PO SCH (08:30)
[2021-10-31] MEDS: DOXYCYCLINE HYCLATE 100MG TABLET PO SCH ×2 (08:30→21:22)
[2021-10-31] MEDS: LIDOCAINE 5% (LIDODERM) PATCH TD SCH (08:30)
[2021-10-31] MEDS: AUGMENTIN 875 MG TAB PO SCH ×2 (08:30→21:22)
[2021-10-31] MEDS: ATORVASTATIN 10 MG TAB PO SCH (08:30)
[2021-10-31] MEDS ORDERED: POTASSIUM CHLORIDE 10MEQ SR TABLET PO SCH (10:00)
[2021-10-31] MEDS: OLANZapine 5 MG TAB PO SCH ×2 (10:18→21:22)
[2021-10-31 15:26] VITALS: BP 190/100
[2021-10-31] MEDS: OLANZapine ORAL DISINTEGRATING TAB 5MG PO PRN (15:27)
[2021-10-31] MEDS: cloNIDine 0.1MG TABLET PO PRN ×2 (15:30→22:17)
[2021-10-31 17:06] VITALS: BP 142/86
[2021-10-31] MEDS: **NOTE PATIENT COMMENT** MISC XX SCH (21:00)
[2021-10-31] MEDS: MIRTAZAPINE 15 MG TAB PO SCH (21:22)
[2021-10-31 21:30] VITALS: BP 140/110
[2021-10-31 23:48] VITALS: BP 130/70
[2021-11-01 06:59] VITALS: BP 130/102
[2021-11-01] MEDS: NEOSPORIN TOP OINT 15GM TOP SCH (08:25)
[2021-11-01 08:27] VITALS: BP 160/80
[2021-11-01] MEDS: ATORVASTATIN 10 MG TAB PO SCH (08:27)
[2021-11-01] MEDS: OLANZapine 5 MG TAB PO SCH ×2 (08:27→20:08)
[2021-11-01] MEDS: NIFEdipine 30 MG XL TAB PO SCH (08:27)
[2021-11-01] MEDS: LIDOCAINE 5% (LIDODERM) PATCH TD SCH (08:28)
[2021-11-01] MEDS: METHADONE 10MG TAB PO SCH (08:28)
[2021-11-01] MEDS: diphenhydrAMINE 50MG CAP PO PRN (09:50)
[2021-11-01 10:31] VITALS: BP 158/84
[2021-11-01] MEDS ORDERED: NIFEdipine 30 MG XL TAB PO ONE (11:00)
[2021-11-01 17:08] VITALS: BP 134/75
[2021-11-01] MEDS: OLANZapine ORAL DISINTEGRATING TAB 5MG PO PRN (18:04)
[2021-11-01] MEDS: **NOTE PATIENT COMMENT** MISC XX SCH (20:07)
[2021-11-01] MEDS: MIRTAZAPINE 15 MG TAB PO SCH (20:09)
[2021-11-01 23:16] VITALS: BP 142/90
[2021-11-02 06:37] VITALS: BP 140/100
[2021-11-02] MEDS: LIDOCAINE 5% (LIDODERM) PATCH TD SCH (08:17)
[2021-11-02] MEDS: NEOSPORIN TOP OINT 15GM TOP SCH (08:17)
[2021-11-02] MEDS: NIFEdipine 30 MG XL TAB PO SCH (08:17)
[2021-11-02] MEDS: OLANZapine 5 MG TAB PO SCH ×3 (08:17→20:01)
[2021-11-02] MEDS: ATORVASTATIN 10 MG TAB PO SCH (08:17)
[2021-11-02] MEDS: METHADONE 10MG TAB PO SCH (08:33)
[2021-11-02] MEDS: diphenhydrAMINE 50MG CAP PO PRN (11:41)
[2021-11-02 12:43] VITALS: BP 148/78
[2021-11-02] MEDS: OLANZapine ORAL DISINTEGRATING TAB 5MG PO PRN (14:13)
[2021-11-02] MEDS: GABAPENTIN 300 MG CAP PO SCH ×2 (16:21→20:00)
[2021-11-02 18:28] VITALS: BP 153/90
[2021-11-02] MEDS: **NOTE PATIENT COMMENT** MISC XX SCH (20:01)
[2021-11-02] MEDS: MIRTAZAPINE 15 MG TAB PO SCH (20:01)
[2021-11-03 00:55] VITALS: BP 128/76
[2021-11-03 06:53] VITALS: BP 138/83
[2021-11-03] MEDS: NIFEdipine 30 MG XL TAB PO SCH (08:32)
[2021-11-03] MEDS: GABAPENTIN 300 MG CAP PO SCH ×3 (08:32→19:56)
[2021-11-03] MEDS: OLANZapine 5 MG TAB PO SCH ×3 (08:32→19:56)
[2021-11-03] MEDS: ATORVASTATIN 10 MG TAB PO SCH (08:32)
[2021-11-03] MEDS: METHADONE 10MG TAB PO SCH (08:33)
[2021-11-03] MEDS: LIDOCAINE 5% (LIDODERM) PATCH TD SCH (08:36)
[2021-11-03 13:42] VITALS: BP 151/72
[2021-11-03] MEDS: IBUPROFEN 600MG TAB PO PRN ×2 (14:03→19:57)
[2021-11-03] MEDS ORDERED: cloNIDine 0.1MG TABLET PO PRN (14:50)
[2021-11-03 18:21] VITALS: BP 140/92
[2021-11-03] MEDS: MIRTAZAPINE 15 MG TAB PO SCH (19:56)
[2021-11-03] MEDS: **NOTE PATIENT COMMENT** MISC XX SCH (19:57)
[2021-11-04 01:00] VITALS: BP 129/68
[2021-11-04 06:44] VITALS: BP 110/64
[2021-11-04] MEDS: LIDOCAINE 5% (LIDODERM) PATCH TD SCH (08:02)
[2021-11-04] MEDS: OLANZapine 5 MG TAB PO SCH ×3 (08:07→20:29)
[2021-11-04] MEDS: ATORVASTATIN 10 MG TAB PO SCH (08:07)
[2021-11-04] MEDS: METHADONE 10MG TAB PO SCH (08:07)
[2021-11-04] MEDS: GABAPENTIN 300 MG CAP PO SCH (08:07)
[2021-11-04] MEDS: NIFEdipine 30 MG XL TAB PO SCH (08:08)
[2021-11-04] MEDS: IBUPROFEN 600MG TAB PO PRN (12:07)
[2021-11-04] MEDS: diphenhydrAMINE 50MG CAP PO PRN (12:37)
[2021-11-04] MEDS: GABAPENTIN 400MG CAP PO SCH ×2 (16:05→20:29)
[2021-11-04] MEDS: OLANZapine ORAL DISINTEGRATING TAB 5MG PO PRN (16:05)
[2021-11-04 18:35] VITALS: BP 133/71
[2021-11-04] MEDS: **NOTE PATIENT COMMENT** MISC XX SCH (20:28)
[2021-11-04] MEDS: MIRTAZAPINE 15 MG TAB PO SCH (20:29)
[2021-11-05] MEDS: OLANZapine ORAL DISINTEGRATING TAB 5MG PO PRN ×2 (06:23→17:42)
[2021-11-05 07:11] VITALS: BP 151/85
[2021-11-05] MEDS: diphenhydrAMINE 50MG CAP PO PRN ×2 (08:03→14:33)
[2021-11-05] MEDS: ATORVASTATIN 10 MG TAB PO SCH (08:03)
[2021-11-05] MEDS: METHADONE 10MG TAB PO SCH (08:03)
[2021-11-05] MEDS: GABAPENTIN 400MG CAP PO SCH ×3 (08:04→20:04)
[2021-11-05] MEDS: OLANZapine 5 MG TAB PO SCH ×3 (08:04→20:04)
[2021-11-05] MEDS: NIFEdipine 30 MG XL TAB PO SCH (08:04)
[2021-11-05] MEDS: LIDOCAINE 5% (LIDODERM) PATCH TD SCH (09:00)
[2021-11-05 18:00] VITALS: BP 142/87
[2021-11-05] MEDS: **NOTE PATIENT COMMENT** MISC XX SCH (20:03)
[2021-11-05] MEDS: MIRTAZAPINE 15 MG TAB PO SCH (20:05)
[2021-11-06 07:01] VITALS: BP 144/82
[2021-11-06] MEDS: LIDOCAINE 5% (LIDODERM) PATCH TD SCH (07:59)
[2021-11-06] MEDS: NIFEdipine 30 MG XL TAB PO SCH (08:02)
[2021-11-06] MEDS: GABAPENTIN 400MG CAP PO SCH ×3 (08:02→20:46)
[2021-11-06] MEDS: OLANZapine 5 MG TAB PO SCH ×3 (08:02→20:46)
[2021-11-06] MEDS: ATORVASTATIN 10 MG TAB PO SCH (08:02)
[2021-11-06] MEDS: METHADONE 10MG TAB PO SCH (08:03)
[2021-11-06] MEDS ORDERED: cloNIDine 0.05MG 1/2 TABLET PO PRN (14:30)
[2021-11-06] MEDS: OLANZapine ORAL DISINTEGRATING TAB 5MG PO PRN (16:48)
[2021-11-06 18:22] VITALS: BP 140/82
[2021-11-06] MEDS: MIRTAZAPINE 15 MG TAB PO SCH (20:46)
[2021-11-06] MEDS: **NOTE PATIENT COMMENT** MISC XX SCH (20:47)
[2021-11-07 06:28] VITALS: BP 127/82
[2021-11-07] MEDS: IBUPROFEN 600MG TAB PO PRN (07:07)
[2021-11-07] MEDS: NIFEdipine 30 MG XL TAB PO SCH (08:03)
[2021-11-07] MEDS: OLANZapine 5 MG TAB PO SCH ×3 (08:03→21:20)
[2021-11-07] MEDS: ATORVASTATIN 10 MG TAB PO SCH (08:03)
[2021-11-07] MEDS: GABAPENTIN 400MG CAP PO SCH ×3 (08:04→21:20)
[2021-11-07] MEDS: METHADONE 10MG TAB PO SCH (08:05)
[2021-11-07] MEDS: LIDOCAINE 5% (LIDODERM) PATCH TD SCH (09:00)
[2021-11-07] MEDS: OLANZapine ORAL DISINTEGRATING TAB 5MG PO PRN (12:46)
[2021-11-07 18:28] VITALS: BP 139/81
[2021-11-07] MEDS: **NOTE PATIENT COMMENT** MISC XX SCH (21:00)
[2021-11-07] MEDS: MIRTAZAPINE 15 MG TAB PO SCH (21:20)
[2021-11-08 00:30] VITALS: BP 122/73
[2021-11-08 06:59] VITALS: BP 140/80
[2021-11-08] MEDS: LIDOCAINE 5% (LIDODERM) PATCH TD SCH (08:02)
[2021-11-08] MEDS: OLANZapine 5 MG TAB PO SCH ×3 (08:05→20:07)
[2021-11-08] MEDS: ATORVASTATIN 10 MG TAB PO SCH (08:05)
[2021-11-08] MEDS: NIFEdipine 30 MG XL TAB PO SCH (08:05)
[2021-11-08] MEDS: GABAPENTIN 400MG CAP PO SCH ×3 (08:05→20:07)
[2021-11-08] MEDS: METHADONE 10MG TAB PO SCH (08:05)
[2021-11-08] MEDS: diphenhydrAMINE 50MG CAP PO PRN (12:07)
[2021-11-08] MEDS: IBUPROFEN 600MG TAB PO PRN (12:08)
[2021-11-08] MEDS: OLANZapine ORAL DISINTEGRATING TAB 5MG PO PRN (16:34)
[2021-11-08 18:20] VITALS: BP 135/68
[2021-11-08] MEDS: **NOTE PATIENT COMMENT** MISC XX SCH (20:06)
[2021-11-08] MEDS: MIRTAZAPINE 15 MG TAB PO SCH (20:07)
[2021-11-09 00:30] VITALS: BP 122/71
[2021-11-09 06:30] VITALS: BP 146/80
[2021-11-09] MEDS: LIDOCAINE 5% (LIDODERM) PATCH TD SCH (08:09)
[2021-11-09] MEDS: METHADONE 10MG TAB PO SCH (08:14)
[2021-11-09] MEDS: GABAPENTIN 400MG CAP PO SCH (08:14)
[2021-11-09] MEDS: OLANZapine 5 MG TAB PO SCH ×2 (08:14→14:06)
[2021-11-09] MEDS: ATORVASTATIN 10 MG TAB PO SCH (08:14)
[2021-11-09 08:15] VITALS: BP 146/80
[2021-11-09] MEDS: NIFEdipine 30 MG XL TAB PO SCH (08:15)
[2021-11-09] MEDS ORDERED: GABA-283 PO (08:16)
[2021-11-09] MEDS ORDERED: MIRT1TAB16 PO (08:16)
[2021-11-09] MEDS ORDERED: OLAN1TAB16 PO (08:16)
[2021-11-09] MEDS: IBUPROFEN 600MG TAB PO PRN (09:48)
[2021-11-09] MEDS: diphenhydrAMINE 50MG CAP PO PRN (12:46)
== END 2021-11-09 14:47 | disposition home or self-care (01) | DRG 751 ==
LOC: M ED 10:31 → M ED INP 10-23 08:41 → M PSY 10-23 09:46
PROVIDERS: ADMIT Student in an Organized Health Care Education/Training Program; ATTEND Student in an Organized Health Care Education/Training Program
DX: F33.3 Major depressive disorder, recurrent, severe with psychotic symptoms (principal); I10 Essential (primary) hypertension; F43.10 Post-traumatic stress disorder, unspecified; F41.9 Anxiety disorder, unspecified; F41.0 Panic disorder [episodic paroxysmal anxiety]; T46.5X2A Poisoning by other antihypertensive drugs, intentional self-harm, initial encounter; M79.7 Fibromyalgia; F16.10 Hallucinogen abuse, uncomplicated; R11.0 Nausea; M54.2 Cervicalgia; M54.30 Sciatica, unspecified side; L03.114 Cellulitis of left upper limb; F11.24 Opioid dependence with opioid-induced mood disorder; B95.62 Methicillin resistant Staphylococcus aureus infection as the cause of diseases classified elsewhere; R51.9 Headache, unspecified; K59.00 Constipation, unspecified; Z56.0 Unemployment, unspecified; Z88.5 Allergy status to narcotic agent; Z81.3 Family history of other psychoactive substance abuse and dependence; Z88.8 Allergy status to other drugs, medicaments and biological substances; Z59.00 Homelessness unspecified; Z81.1 Family history of alcohol abuse and dependence; Z79.899 Other long term (current) drug therapy; Z81.8 Family history of other mental and behavioral disorders; Z63.8 Other specified problems related to primary support group

== ENCOUNTER 2022-01-12 12:42 | Inpatient (IN) | payer MEDICAID, OTHER ==
[~2022-01-12] VITALS: Ht 170.2 cm; Wt 119.1 kg
[~2022-01-12 12:42] MED LIST changes: +CLON-412 PO; +DEPA250T32 PO; +DIVA500T94 PO; +GABA-283 PO; +IBUP-1764 PO; +MIRT1TAB16 PO; +OLAN1TAB16 PO
[2022-01-12 14:03] LABS: HEMATOCRIT 37.1 % (36.0-47.0); HEMOGLOBIN 11.8 g/dl (12.0-15.5); MEAN CORPUSCULAR HGB CONC 31.8 g/dl (32.0-36.5); MEAN CORPUSCULAR VOLUME 84.9 fl (80.0-96.0); PLATELET COUNT, AUTOMATED 395 10^3/uL (150-450); RED BLOOD COUNT 4.37 10^6/uL (4.00-5.40); WHITE BLOOD COUNT 7.2 10^3/uL (4.0-10.0)
[2022-01-12 14:36] LABS: AMPHETAMINES LEVEL URINE NEGATIVE (NEGATIVE); BARBITURATES URINE NEGATIVE (NEGATIVE); BENZODIAZEPINES URINE NEGATIVE (NEGATIVE); CANNABINOIDS URINE POSITIVE (NEGATIVE); COCAINE METABOLITE URINE NEGATIVE (NEGATIVE); METHADONE URINE POSITIVE (NEGATIVE); OPIATES URINE NEGATIVE (NEGATIVE); PHENCYCLIDINE URINE NEGATIVE (NEGATIVE)
[2022-01-12 14:45] LABS: HCG, SERUM QUALITATIVE NEGATIVE (NEGATIVE)
[2022-01-12 14:48] LABS: RSV AMPLIFICATION NEGATIVE (NEGATIVE)
[2022-01-12 15:06] LABS: ACETAMINOPHEN LEVEL < 2.0 UG/ML (10.0-30.0); ALBUMIN 4.1 GM/DL (3.2-5.2); ALT/SGPT 28 U/L (12-78); BILIRUBIN,DIRECT 0.1 MG/DL (0.0-0.2); BILIRUBIN,TOTAL 0.4 MG/DL (0.2-1.0); BLOOD UREA NITROGEN 13 MG/DL (7-18); CALCIUM LEVEL 9.4 MG/DL (8.5-10.1); CARBON DIOXIDE LEVEL 27 MEQ/L (21-32); CHLORIDE LEVEL 98 MEQ/L (98-107); CREATININE FOR GFR 0.96 MG/DL (0.55-1.30); ETHYL ALCOHOL (ETHANOL) < 0.003 % (0.000-0.010); GLOMERULAR FILTRATION RATE > 60.0 (>60); GLUCOSE, FASTING 115 MG/DL (70-100); POTASSIUM SERUM 4.1 MEQ/L (3.5-5.1); SALICYLATE LEVEL 3.1 MG/DL (5.0-30.0); SODIUM LEVEL 132 MEQ/L (136-145); TOTAL PROTEIN 8.8 GM/DL (6.4-8.2)
[2022-01-12] MEDS ORDERED: GABA600T4 PO (16:21)
[2022-01-12] MEDS ORDERED: MIRT1TAB16 PO (16:21)
[2022-01-12] MEDS ORDERED: LEXA5TAB13 PO (16:21)
[2022-01-12] MEDS ORDERED: DOXA1TAB41 PO (16:21)
[2022-01-12] MEDS ORDERED: ATOR1TAB19 PO (16:21)
[2022-01-12] MEDS ORDERED: ACET325C5 PO (16:21)
[2022-01-12] MEDS ORDERED: NIFE60TA40 PO (16:21)
[2022-01-12] MEDS ORDERED: LISI20TA33 PO (16:21)
[2022-01-12] MEDS ORDERED: OLAN1TAB16 PO (16:21)
[2022-01-12] MEDS ORDERED: MIRT-11 PO (16:30)
[2022-01-12] MEDS ORDERED: HOME MED LIST COMPLETE! XX SCH (16:35)
[2022-01-12] MEDS ORDERED: ATORVASTATIN 20 MG TAB PO SCH (21:00)
[2022-01-12] MEDS ORDERED: OLANZapine 5 MG TAB PO SCH (21:00)
[2022-01-12] MEDS ORDERED: GABAPENTIN 300 MG CAP PO SCH (21:00)
[2022-01-12] MEDS ORDERED: MIRTAZAPINE 15 MG TAB PO SCH (21:00)
[2022-01-12] MEDS ORDERED: DOXAZOSIN MESYLATE 1 MG TAB PO SCH (21:00)
[2022-01-12] MEDS ORDERED: traZODone 50 MG TAB PO PRN (22:00)
[2022-01-12] MEDS ORDERED: MOM 30ML SUSPENSION UDC PO PRN (22:00)
[2022-01-12] MEDS ORDERED: MAALOX 30 ML SUSP *UDC PO PRN (22:00)
[2022-01-12] MEDS: MIRTAZAPINE 15 MG TAB PO SCH (23:03)
[2022-01-12] MEDS: ATORVASTATIN 10 MG TAB PO SCH (23:03)
[2022-01-12] MEDS: OLANZapine 5 MG TAB PO SCH (23:04)
[2022-01-12] MEDS: GABAPENTIN 300 MG CAP PO SCH (23:04)
[2022-01-12] MEDS: DOXAZOSIN MESYLATE 1 MG TAB PO SCH (23:41)
[2022-01-12 23:54] VITALS: BP 135/89
[2022-01-13] MEDS: DOXYCYCLINE HYCLATE 100MG TABLET PO SCH ×3 (00:32→21:07)
[2022-01-13 07:06] LABS: BASO % 0.4 % (0.0-1.0); EOS # 0.1 10^3/uL (0.0-0.5); EOS % 2.3 % (0.0-3.0); HEMATOCRIT 36.1 % (36.0-47.0); HEMOGLOBIN 11.5 g/dl (12.0-15.5); LYMPH # 2.4 10^3/uL (1.5-5.0); LYMPH % 51.1 % (24.0-44.0); MEAN CORPUSCULAR HEMOGLOBIN 27.6 pg (27.0-33.0); MEAN CORPUSCULAR HGB CONC 31.9 g/dl (32.0-36.5); MEAN CORPUSCULAR VOLUME 86.6 fl (80.0-96.0); MONO # 0.3 10^3/uL (0.0-0.8); MONO % 6.2 % (2.0-8.0); NEUTROPHILS # 1.9 10^3/uL (1.5-8.5); RED BLOOD COUNT 4.17 10^6/uL (4.00-5.40); WHITE BLOOD COUNT 4.7 10^3/uL (4.0-10.0)
[2022-01-13 07:18] LABS: PLATELET COUNT, AUTOMATED 262 10^3/uL (150-450)
[2022-01-13 07:41] LABS: BLOOD UREA NITROGEN 16 MG/DL (7-18); CALCIUM LEVEL 9.1 MG/DL (8.5-10.1); CARBON DIOXIDE LEVEL 28 MEQ/L (21-32); CHLORIDE LEVEL 102 MEQ/L (98-107); CREATININE FOR GFR 0.78 MG/DL (0.55-1.30); GLOMERULAR FILTRATION RATE > 60.0 (>60); GLUCOSE, FASTING 82 MG/DL (70-100); POTASSIUM SERUM 4.2 MEQ/L (3.5-5.1); SODIUM LEVEL 137 MEQ/L (136-145)
[2022-01-13] MEDS: GABAPENTIN 300 MG CAP PO SCH ×3 (08:17→21:07)
[2022-01-13] MEDS: OLANZapine 5 MG TAB PO SCH ×3 (08:17→21:07)
[2022-01-13] MEDS: NIFEdipine 30 MG XL TAB PO SCH (08:18)
[2022-01-13] MEDS ORDERED: ESCITALOPRAM OXALATE 5MG TABLET (LEXAPRO) PO SCH ×2 (09:00)
[2022-01-13] MEDS ORDERED: NIFEdipine 30 MG XL TAB PO SCH (09:00)
[2022-01-13] MEDS: METHADONE 10MG TAB PO SCH (11:52)
[2022-01-13 17:46] VITALS: BP 146/88
[2022-01-13] MEDS ORDERED: ARIPiprazole 2 MG TAB PO SCH (21:00)
[2022-01-13] MEDS: MIRTAZAPINE 15 MG TAB PO SCH (21:07)
[2022-01-13] MEDS: ATORVASTATIN 10 MG TAB PO SCH (21:07)
[2022-01-13] MEDS: DOXAZOSIN MESYLATE 1 MG TAB PO SCH (21:07)
[2022-01-14 06:16] VITALS: BP 143/82
[2022-01-14 06:59] LABS: CHOLESTEROL RISK RATIO 6.807 (<5)
[2022-01-14] MEDS: DOXYCYCLINE HYCLATE 100MG TABLET PO SCH ×2 (08:01→20:41)
[2022-01-14] MEDS: NIFEdipine 30 MG XL TAB PO SCH (08:02)
[2022-01-14] MEDS: OLANZapine 5 MG TAB PO SCH ×3 (08:02→20:41)
[2022-01-14] MEDS: ESCITALOPRAM OXALATE 10 MG TAB (LEXAPRO) PO SCH (08:03)
[2022-01-14] MEDS: METHADONE 10MG TAB PO SCH (08:03)
[2022-01-14] MEDS: GABAPENTIN 300 MG CAP PO SCH ×3 (08:03→20:41)
[2022-01-14 18:08] VITALS: BP 134/70
[2022-01-14] MEDS: MIRTAZAPINE 15 MG TAB PO SCH (20:41)
[2022-01-14] MEDS: DOXAZOSIN MESYLATE 1 MG TAB PO SCH (20:41)
[2022-01-14] MEDS: ATORVASTATIN 10 MG TAB PO SCH (20:42)
[2022-01-15 06:13] VITALS: BP 135/73
[2022-01-15] MEDS: OLANZapine 5 MG TAB PO SCH ×3 (08:04→22:26)
[2022-01-15] MEDS: DOXYCYCLINE HYCLATE 100MG TABLET PO SCH ×2 (08:04→22:23)
[2022-01-15] MEDS: GABAPENTIN 300 MG CAP PO SCH ×3 (08:04→22:26)
[2022-01-15] MEDS: METHADONE 10MG TAB PO SCH (08:05)
[2022-01-15] MEDS: ESCITALOPRAM OXALATE 10 MG TAB (LEXAPRO) PO SCH (08:05)
[2022-01-15] MEDS: NIFEdipine 30 MG XL TAB PO SCH (08:05)
[2022-01-15 17:58] VITALS: BP 139/72
[2022-01-15] MEDS: MIRTAZAPINE 15 MG TAB PO SCH (22:23)
[2022-01-15] MEDS: ATORVASTATIN 10 MG TAB PO SCH (22:23)
[2022-01-15] MEDS: DOXAZOSIN MESYLATE 1 MG TAB PO SCH (22:26)
[2022-01-16 06:59] VITALS: BP 136/73
[2022-01-16] MEDS: ESCITALOPRAM OXALATE 10 MG TAB (LEXAPRO) PO SCH (08:04)
[2022-01-16] MEDS: NIFEdipine 30 MG XL TAB PO SCH (08:04)
[2022-01-16] MEDS: OLANZapine 5 MG TAB PO SCH ×3 (08:05→21:28)
[2022-01-16] MEDS: GABAPENTIN 300 MG CAP PO SCH (08:05)
[2022-01-16] MEDS: DOXYCYCLINE HYCLATE 100MG TABLET PO SCH ×2 (08:05→21:27)
[2022-01-16] MEDS: METHADONE 10MG TAB PO SCH (08:06)
[2022-01-16 15:43] VITALS: BP 144/97
[2022-01-16] MEDS: GABAPENTIN 400MG CAP PO SCH ×2 (16:01→21:27)
[2022-01-16 18:25] VITALS: BP 144/97
[2022-01-16] MEDS: ATORVASTATIN 10 MG TAB PO SCH (21:27)
[2022-01-16] MEDS: MIRTAZAPINE 15 MG TAB PO SCH (21:27)
[2022-01-16] MEDS: DOXAZOSIN MESYLATE 1 MG TAB PO SCH (21:28)
[2022-01-17 06:06] VITALS: BP 108/73
[2022-01-17] MEDS: DOXYCYCLINE HYCLATE 100MG TABLET PO SCH ×2 (08:03→20:10)
[2022-01-17] MEDS: NIFEdipine 30 MG XL TAB PO SCH (08:03)
[2022-01-17] MEDS: ESCITALOPRAM OXALATE 10 MG TAB (LEXAPRO) PO SCH (08:03)
[2022-01-17] MEDS: GABAPENTIN 400MG CAP PO SCH ×3 (08:04→20:09)
[2022-01-17] MEDS: OLANZapine 5 MG TAB PO SCH ×3 (08:04→20:09)
[2022-01-17] MEDS: METHADONE 10MG TAB PO SCH (08:04)
[2022-01-17 18:18] VITALS: BP 133/89
[2022-01-17] MEDS: DOXAZOSIN MESYLATE 1 MG TAB PO SCH (20:09)
[2022-01-17] MEDS: MIRTAZAPINE 15 MG TAB PO SCH (20:10)
[2022-01-17] MEDS: ATORVASTATIN 10 MG TAB PO SCH (20:10)
[2022-01-18 06:08] VITALS: BP 125/72
[2022-01-18] MEDS: NIFEdipine 30 MG XL TAB PO SCH (08:15)
[2022-01-18] MEDS: DOXYCYCLINE HYCLATE 100MG TABLET PO SCH ×2 (08:15→21:04)
[2022-01-18] MEDS: GABAPENTIN 400MG CAP PO SCH ×3 (08:15→21:03)
[2022-01-18] MEDS: ESCITALOPRAM OXALATE 10 MG TAB (LEXAPRO) PO SCH (08:16)
[2022-01-18] MEDS: METHADONE 10MG TAB PO SCH (08:16)
[2022-01-18] MEDS: OLANZapine 5 MG TAB PO SCH (08:16)
[2022-01-18] MEDS ORDERED: OLANZapine 5 MG TAB PO SCH (13:00)
[2022-01-18] MEDS: OLANZapine ORAL DISINTEGRATING TAB 5MG PO SCH ×2 (15:37→21:04)
[2022-01-18 16:07] VITALS: BP 138/73
[2022-01-18] MEDS: MIRTAZAPINE 15 MG TAB PO SCH (21:04)
[2022-01-18] MEDS: DOXAZOSIN MESYLATE 1 MG TAB PO SCH (21:04)
[2022-01-18] MEDS: ATORVASTATIN 10 MG TAB PO SCH (21:04)
[2022-01-19 06:30] VITALS: BP 140/87
[2022-01-19 08:37] VITALS: BP 162/78
[2022-01-19] MEDS: DOXYCYCLINE HYCLATE 100MG TABLET PO SCH (08:39)
[2022-01-19] MEDS: OLANZapine ORAL DISINTEGRATING TAB 5MG PO SCH (08:39)
[2022-01-19] MEDS: NIFEdipine 30 MG XL TAB PO SCH (08:39)
[2022-01-19] MEDS: METHADONE 10MG TAB PO SCH (08:40)
[2022-01-19] MEDS: ESCITALOPRAM OXALATE 10 MG TAB (LEXAPRO) PO SCH (08:40)
[2022-01-19] MEDS: ACETAMINOPHEN TAB 650MG DOSE (2X325MG) PO PRN (08:40)
[2022-01-19] MEDS: GABAPENTIN 400MG CAP PO SCH ×3 (08:40→20:02)
[2022-01-19 09:22] VITALS: BP 175/96
[2022-01-19] MEDS ORDERED: ISOVUE-370 76% 100ML VIAL As Ordered ONE (09:57)
[2022-01-19 10:21] LABS: BASO % 0.3 % (0.0-1.0); EOS # 0.1 10^3/uL (0.0-0.5); EOS % 1.9 % (0.0-3.0); HEMATOCRIT 34.8 % (36.0-47.0); HEMOGLOBIN 11.2 g/dl (12.0-15.5); LYMPH # 2.6 10^3/uL (1.5-5.0); LYMPH % 41.1 % (24.0-44.0); MEAN CORPUSCULAR HEMOGLOBIN 27.3 pg (27.0-33.0); MEAN CORPUSCULAR HGB CONC 32.2 g/dl (32.0-36.5); MEAN CORPUSCULAR VOLUME 84.7 fl (80.0-96.0); MONO # 0.6 10^3/uL (0.0-0.8); MONO % 8.8 % (2.0-8.0); NEUTROPHILS % 47.6 % (36.0-66.0); PLATELET COUNT, AUTOMATED 264 10^3/uL (150-450); RED BLOOD COUNT 4.11 10^6/uL (4.00-5.40); WHITE BLOOD COUNT 6.3 10^3/uL (4.0-10.0)
[2022-01-19 10:53] LABS: CK-MB VALUE MASS 1.4 NG/ML (<3.6); CPK CREATINE PHOSPHOKINASE 109 U/L (26-192); MB/CK RELATIVE INDEX 1.28 (< OR =4)
[2022-01-19 10:58] LABS: ALBUMIN 3.7 GM/DL (3.2-5.2); ALT/SGPT 32 U/L (12-78); BILIRUBIN,TOTAL 0.2 MG/DL (0.2-1.0); BLOOD UREA NITROGEN 17 MG/DL (7-18); CALCIUM LEVEL 9.1 MG/DL (8.5-10.1); CARBON DIOXIDE LEVEL 29 MEQ/L (21-32); CHLORIDE LEVEL 106 MEQ/L (98-107); CREATININE FOR GFR 0.83 MG/DL (0.55-1.30); GLOMERULAR FILTRATION RATE > 60.0 (>60); GLUCOSE, FASTING 92 MG/DL (70-100); MAGNESIUM LEVEL 1.9 MG/DL (1.8-2.4); SODIUM LEVEL 140 MEQ/L (136-145); TOTAL PROTEIN 7.7 GM/DL (6.4-8.2)
[2022-01-19 11:21] VITALS: BP 148/70
[2022-01-19 12:22] LABS: CK-MB VALUE MASS 1.5 NG/ML (<3.6); MB/CK RELATIVE INDEX 1.39 (< OR =4)
[2022-01-19 13:37] LABS: NT-PRO BNP 6 PG/ML (<125)
[2022-01-19] MEDS: OLANZapine 5 MG TAB PO SCH ×2 (15:17→20:01)
[2022-01-19 16:09] VITALS: BP 145/80
[2022-01-19] MEDS: MIRTAZAPINE 15 MG TAB PO SCH (20:01)
[2022-01-19] MEDS: DOXAZOSIN MESYLATE 1 MG TAB PO SCH (20:01)
[2022-01-19] MEDS: ATORVASTATIN 10 MG TAB PO SCH (20:01)
[2022-01-20 06:17] VITALS: BP 127/75
[2022-01-20] MEDS: NIFEdipine 30 MG XL TAB PO SCH (08:03)
[2022-01-20] MEDS: OLANZapine 5 MG TAB PO SCH (08:03)
[2022-01-20] MEDS: METHADONE 10MG TAB PO SCH (08:04)
[2022-01-20] MEDS: GABAPENTIN 400MG CAP PO SCH ×3 (08:04→20:01)
[2022-01-20] MEDS: ESCITALOPRAM OXALATE 10 MG TAB (LEXAPRO) PO SCH (08:04)
[2022-01-20 16:10] VITALS: BP 143/88
[2022-01-20] MEDS: TOPIRAMATE (TopAMAX) 25 MG TAB PO SCH (20:01)
[2022-01-20] MEDS: MIRTAZAPINE 15 MG TAB PO SCH (20:01)
[2022-01-20] MEDS: DOXAZOSIN MESYLATE 1 MG TAB PO SCH (20:01)
[2022-01-20] MEDS: ATORVASTATIN 10 MG TAB PO SCH (20:01)
[2022-01-21 06:00] VITALS: BP 122/76
[2022-01-21] MEDS: METHADONE 10MG TAB PO SCH (08:18)
[2022-01-21] MEDS: ESCITALOPRAM OXALATE 10 MG TAB (LEXAPRO) PO SCH (08:18)
[2022-01-21] MEDS: GABAPENTIN 400MG CAP PO SCH ×3 (08:18→20:09)
[2022-01-21] MEDS: NIFEdipine 30 MG XL TAB PO SCH (08:23)
[2022-01-21] MEDS: ACETAMINOPHEN TAB 650MG DOSE (2X325MG) PO PRN ×2 (09:12→15:07)
[2022-01-21 18:14] VITALS: BP 146/98
[2022-01-21] MEDS: DOXAZOSIN MESYLATE 1 MG TAB PO SCH (20:08)
[2022-01-21] MEDS: ATORVASTATIN 10 MG TAB PO SCH (20:08)
[2022-01-21] MEDS: MIRTAZAPINE 15 MG TAB PO SCH (20:08)
[2022-01-21] MEDS: TOPIRAMATE (TopAMAX) 25 MG TAB PO SCH (20:09)
[2022-01-22 06:25] VITALS: BP 144/82
[2022-01-22 07:50] VITALS: BP 144/82
[2022-01-22] MEDS: METHADONE 10MG TAB PO SCH (07:50)
[2022-01-22] MEDS: NIFEdipine 30 MG XL TAB PO SCH (07:50)
[2022-01-22] MEDS: GABAPENTIN 400MG CAP PO SCH (07:50)
[2022-01-22] MEDS: ESCITALOPRAM OXALATE 10 MG TAB (LEXAPRO) PO SCH (07:50)
[2022-01-22] MEDS: ACETAMINOPHEN TAB 650MG DOSE (2X325MG) PO PRN (09:15)
[2022-01-22] MEDS ORDERED: LEXA1TAB PO (09:16)
[2022-01-22] MEDS ORDERED: TOPA1TAB PO (09:16)
[2022-01-22] MEDS ORDERED: ATOR1TAB19 PO (09:16)
[2022-01-22] MEDS ORDERED: GABA-283 PO (09:16)
[2022-01-22] MEDS ORDERED: LISI20TA33 PO (09:16)
[2022-01-22] MEDS ORDERED: CARD1TAB4 PO (09:16)
[2022-01-22] MEDS ORDERED: MIRT-10 PO (09:16)
== END 2022-01-22 13:23 | disposition home or self-care (01) | DRG 755 ==
LOC: M ED 12:42 → EEVIPCON 21:58 → M ED INP 21:58 → M PSY 22:41
PROVIDERS: ADMIT Psychiatry & Neurology Psychiatry; ATTEND Psychiatry & Neurology Psychiatry
DX: F43.10 Post-traumatic stress disorder, unspecified (principal); I10 Essential (primary) hypertension; R45.851 Suicidal ideations; M54.2 Cervicalgia; F32.A Depression, unspecified; F16.10 Hallucinogen abuse, uncomplicated; F41.0 Panic disorder [episodic paroxysmal anxiety]; M79.7 Fibromyalgia; F12.10 Cannabis abuse, uncomplicated; R00.0 Tachycardia, unspecified; R07.89 Other chest pain; L98.9 Disorder of the skin and subcutaneous tissue, unspecified; R94.31 Abnormal electrocardiogram [ECG] [EKG]; F17.200 Nicotine dependence, unspecified, uncomplicated; R51.9 Headache, unspecified; Z62.812 Personal history of neglect in childhood; Z59.01 Sheltered homelessness; Z56.0 Unemployment, unspecified; Z91.51 Personal history of suicidal behavior; Z81.1 Family history of alcohol abuse and dependence; Z81.3 Family history of other psychoactive substance abuse and dependence; Z81.8 Family history of other mental and behavioral disorders; Z65.3 Problems related to other legal circumstances; Z79.899 Other long term (current) drug therapy; Z88.5 Allergy status to narcotic agent; Z88.8 Allergy status to other drugs, medicaments and biological substances

== ENCOUNTER 2022-04-05 14:16 | Inpatient (IN) | payer MEDICAID, OTHER ==
[~2022-04-05] VITALS: Ht 170.2 cm; Wt 118.8 kg
[~2022-04-05 14:16] MED LIST changes: +ACET325C5 PO; +ATOR1TAB19 PO; +CARD1TAB4 PO; +DOXA1TAB41 PO; +LEXA1TAB PO; +LEXA5TAB13 PO; +LISI20TA33 PO; +MIRT-10 PO; +MIRT-11 PO; +NIFE60TA40 PO; +TOPA1TAB PO
[2022-04-05 16:02] LABS: HEMOGLOBIN 10.7 g/dl (12.0-15.5); MEAN CORPUSCULAR HGB CONC 31.5 g/dl (32.0-36.5); MEAN CORPUSCULAR VOLUME 82.5 fl (80.0-96.0); PLATELET COUNT, AUTOMATED 196 10^3/uL (150-450); RED BLOOD COUNT 4.12 10^6/uL (4.00-5.40); WHITE BLOOD COUNT 5.4 10^3/uL (4.0-10.0)
[2022-04-05] MEDS ORDERED: METHADONE 10MG TAB PO ONE (16:10)
[2022-04-05 16:24] LABS: AMPHETAMINES LEVEL URINE NEGATIVE (NEGATIVE); BARBITURATES URINE NEGATIVE (NEGATIVE); BENZODIAZEPINES URINE NEGATIVE (NEGATIVE); CANNABINOIDS URINE NEGATIVE (NEGATIVE); COCAINE METABOLITE URINE NEGATIVE (NEGATIVE); OPIATES URINE NEGATIVE (NEGATIVE); PHENCYCLIDINE URINE NEGATIVE (NEGATIVE)
[2022-04-05 16:26] LABS: ETHYL ALCOHOL (ETHANOL) 0.003 % (0.000-0.010); METHADONE URINE POSITIVE (NEGATIVE)
[2022-04-05 16:27] LABS: SALICYLATE LEVEL < 3.0 MG/DL (<30)
[2022-04-05 16:28] LABS: ACETAMINOPHEN LEVEL < 2.0 UG/ML (10.0-20.0); ALBUMIN 3.9 G/DL (3.2-5.2); ALKALINE PHOSPHATASE 81 U/L (46-116); ALT/SGPT 15 U/L (7.0-40); AST/SGOT 34 U/L (<34); BILIRUBIN,DIRECT 0.2 MG/DL (<0.4); BILIRUBIN,TOTAL 0.5 MG/DL (0.3-1.2); BLOOD UREA NITROGEN 10 MG/DL (9-23); CALCIUM LEVEL 9.3 MG/DL (8.5-10.1); CARBON DIOXIDE LEVEL 28 MMOL/L (20-31); CHLORIDE LEVEL 103 MMOL/L (98-107); GLOMERULAR FILTRATION RATE > 60.0 (>60); GLUCOSE, FASTING 83 MG/DL (60-100); POTASSIUM SERUM 4.2 MMOL/L (3.5-5.1); SODIUM LEVEL 137 MMOL/L (136-145); TOTAL PROTEIN 7.2 G/DL (5.7-8.2)
[2022-04-05] MEDS ORDERED: METH-1177 PO (16:28)
[2022-04-05 16:34] LABS: RSV AMPLIFICATION NEGATIVE (NEGATIVE)
[2022-04-05 16:35] LABS: HCG, SERUM QUALITATIVE NEGATIVE (NEGATIVE)
[2022-04-05 17:07] LABS: THYROID STIMULATING HORMONE 0.775 uIU/ML (0.55-4.78)
[2022-04-05] MEDS ORDERED: LEXA1TAB2 PO (20:46)
[2022-04-05] MEDS ORDERED: DOXA1TAB67 PO (20:46)
[2022-04-05] MEDS ORDERED: TOPI50TA9 PO (20:46)
[2022-04-05] MEDS ORDERED: GABA800T4 PO (20:48)
[2022-04-05] MEDS ORDERED: IBUP200T46 PO (20:50)
[2022-04-05] MEDS ORDERED: ACET-897 PO (20:50)
[2022-04-05] MEDS ORDERED: HOME MED LIST COMPLETE! XX SCH (20:50)
[2022-04-05] MEDS: TOPIRAMATE (TopAMAX) 25 MG TAB PO SCH (21:00)
[2022-04-05] MEDS: DOXAZOSIN MESYLATE 4 MG TAB PO SCH (21:00)
[2022-04-06] MEDS ORDERED: MAALOX 30 ML SUSP *UDC PO PRN (01:10)
[2022-04-06] MEDS ORDERED: ACETAMINOPHEN TAB 650MG DOSE (2X325MG) PO PRN (01:10)
[2022-04-06] MEDS ORDERED: MOM 30ML SUSPENSION UDC PO PRN (01:10)
[2022-04-06 02:20] VITALS: BP 106/78
[2022-04-06] MEDS: NICOTINE 21MG/24HR 1 EA TRANSDERMAL TD SCH (08:32)
[2022-04-06] MEDS: METHADONE 10MG TAB PO SCH (08:32)
[2022-04-06] MEDS ORDERED: ESCITALOPRAM OXALATE 10 MG TAB (LEXAPRO) PO SCH (09:00)
[2022-04-06] MEDS: GABAPENTIN 400MG CAP PO PRN ×2 (12:52→20:17)
[2022-04-06 19:02] VITALS: BP 132/75
[2022-04-06] MEDS: DOXAZOSIN MESYLATE 4 MG TAB PO SCH (20:17)
[2022-04-06] MEDS: TOPIRAMATE (TopAMAX) 25 MG TAB PO SCH (20:17)
[2022-04-06] MEDS: traZODone 50 MG TAB PO PRN (20:17)
[2022-04-06] MEDS: DOXYCYCLINE HYCLATE 100MG TABLET PO SCH (20:17)
[2022-04-07 06:05] VITALS: BP 106/56
[2022-04-07] MEDS: DOXYCYCLINE HYCLATE 100MG TABLET PO SCH ×2 (08:03→20:07)
[2022-04-07] MEDS: METHADONE 10MG TAB PO SCH (08:04)
[2022-04-07] MEDS: ESCITALOPRAM OXALATE 10 MG TAB (LEXAPRO) PO SCH (08:04)
[2022-04-07] MEDS: NICOTINE 21MG/24HR 1 EA TRANSDERMAL TD SCH (08:05)
[2022-04-07] MEDS: GABAPENTIN 400MG CAP PO SCH ×3 (11:58→20:07)
[2022-04-07 18:34] VITALS: BP 139/65
[2022-04-07] MEDS: TOPIRAMATE (TopAMAX) 25 MG TAB PO SCH (20:07)
[2022-04-07] MEDS: DOXAZOSIN MESYLATE 4 MG TAB PO SCH (20:07)
[2022-04-08 06:34] VITALS: BP 116/76
[2022-04-08] MEDS: ESCITALOPRAM OXALATE 10 MG TAB (LEXAPRO) PO SCH (08:28)
[2022-04-08] MEDS: GABAPENTIN 400MG CAP PO SCH ×3 (08:28→20:53)
[2022-04-08] MEDS: DOXYCYCLINE HYCLATE 100MG TABLET PO SCH ×2 (08:28→20:54)
[2022-04-08] MEDS: NICOTINE 21MG/24HR 1 EA TRANSDERMAL TD SCH (08:29)
[2022-04-08] MEDS: METHADONE 10MG TAB PO SCH (08:29)
[2022-04-08 19:32] VITALS: BP 114/65
[2022-04-08] MEDS: DOXAZOSIN MESYLATE 4 MG TAB PO SCH (20:54)
[2022-04-08] MEDS: TOPIRAMATE (TopAMAX) 25 MG TAB PO SCH (20:54)
[2022-04-09 06:27] VITALS: BP 118/73
[2022-04-09] MEDS: METHADONE 10MG TAB PO SCH (08:30)
[2022-04-09] MEDS: ESCITALOPRAM OXALATE 10 MG TAB (LEXAPRO) PO SCH (08:31)
[2022-04-09] MEDS: DOXYCYCLINE HYCLATE 100MG TABLET PO SCH (08:31)
[2022-04-09] MEDS: IBUPROFEN 400MG TAB PO PRN (08:31)
[2022-04-09] MEDS: GABAPENTIN 400MG CAP PO SCH ×3 (08:31→21:48)
[2022-04-09] MEDS: NICOTINE 21MG/24HR 1 EA TRANSDERMAL TD SCH (08:36)
[2022-04-09 16:00] VITALS: BP 135/71
[2022-04-09] MEDS: CEPHALEXIN 500 MG CAP PO SCH ×2 (16:01→21:48)
[2022-04-09] MEDS: DOXAZOSIN MESYLATE 4 MG TAB PO SCH (21:48)
[2022-04-09] MEDS: traZODone 50 MG TAB PO PRN (21:48)
[2022-04-09] MEDS: TOPIRAMATE (TopAMAX) 25 MG TAB PO SCH (21:48)
[2022-04-10 07:00] VITALS: BP 110/56
[2022-04-10] MEDS: CEPHALEXIN 500 MG CAP PO SCH ×4 (08:07→21:16)
[2022-04-10] MEDS: NICOTINE 21MG/24HR 1 EA TRANSDERMAL TD SCH (08:08)
[2022-04-10] MEDS: METHADONE 10MG TAB PO SCH (08:08)
[2022-04-10] MEDS: ESCITALOPRAM OXALATE 10 MG TAB (LEXAPRO) PO SCH (08:09)
[2022-04-10] MEDS: GABAPENTIN 400MG CAP PO SCH ×3 (08:09→21:16)
[2022-04-10] MEDS: buPROPion **XL** TABLET 150MG (WELLBUTRIN XL) PO SCH (14:22)
[2022-04-10 17:39] VITALS: BP 126/69
[2022-04-10] MEDS: TOPIRAMATE (TopAMAX) 25 MG TAB PO SCH (21:16)
[2022-04-10] MEDS: DOXAZOSIN MESYLATE 4 MG TAB PO SCH (21:16)
[2022-04-10] MEDS: traZODone 50 MG TAB PO PRN (21:16)
[2022-04-11 06:37] VITALS: BP 111/63
[2022-04-11] MEDS: NICOTINE 21MG/24HR 1 EA TRANSDERMAL TD SCH (08:02)
[2022-04-11] MEDS: GABAPENTIN 400MG CAP PO SCH ×3 (08:03→20:00)
[2022-04-11] MEDS: METHADONE 10MG TAB PO SCH (08:03)
[2022-04-11] MEDS: buPROPion **XL** TABLET 150MG (WELLBUTRIN XL) PO SCH (08:04)
[2022-04-11] MEDS: ESCITALOPRAM OXALATE 10 MG TAB (LEXAPRO) PO SCH (08:04)
[2022-04-11] MEDS: CEPHALEXIN 500 MG CAP PO SCH ×4 (08:04→20:00)
[2022-04-11 17:46] VITALS: BP 119/55
[2022-04-11] MEDS: DOXAZOSIN MESYLATE 4 MG TAB PO SCH (20:00)
[2022-04-11] MEDS: traZODone 50 MG TAB PO PRN (20:00)
[2022-04-11] MEDS: TOPIRAMATE (TopAMAX) 25 MG TAB PO SCH (20:00)
[2022-04-12 06:35] VITALS: BP 111/56
[2022-04-12] MEDS: CEPHALEXIN 500 MG CAP PO SCH ×4 (08:02→21:04)
[2022-04-12] MEDS: GABAPENTIN 400MG CAP PO SCH ×3 (08:03→21:04)
[2022-04-12] MEDS: METHADONE 10MG TAB PO SCH (08:03)
[2022-04-12] MEDS: buPROPion **XL** TABLET 150MG (WELLBUTRIN XL) PO SCH (08:03)
[2022-04-12] MEDS: ESCITALOPRAM OXALATE 10 MG TAB (LEXAPRO) PO SCH (08:03)
[2022-04-12] MEDS: NICOTINE 21MG/24HR 1 EA TRANSDERMAL TD SCH (08:04)
[2022-04-12 18:20] VITALS: BP 128/63
[2022-04-12] MEDS: TOPIRAMATE (TopAMAX) 25 MG TAB PO SCH (21:04)
[2022-04-12] MEDS: traZODone 50 MG TAB PO PRN (21:04)
[2022-04-12] MEDS: DOXAZOSIN MESYLATE 4 MG TAB PO SCH (21:05)
[2022-04-13 06:26] VITALS: BP 126/60
[2022-04-13] MEDS: METHADONE 10MG TAB PO SCH (08:26)
[2022-04-13] MEDS: NICOTINE 21MG/24HR 1 EA TRANSDERMAL TD SCH (08:26)
[2022-04-13] MEDS: CEPHALEXIN 500 MG CAP PO SCH ×4 (08:26→22:20)
[2022-04-13] MEDS: buPROPion **XL** TABLET 150MG (WELLBUTRIN XL) PO SCH (08:26)
[2022-04-13] MEDS: ESCITALOPRAM OXALATE 10 MG TAB (LEXAPRO) PO SCH (08:26)
[2022-04-13] MEDS: GABAPENTIN 400MG CAP PO SCH ×3 (08:26→22:20)
[2022-04-13] MEDS: IBUPROFEN 400MG TAB PO PRN ×2 (10:13→22:21)
[2022-04-13 16:53] VITALS: BP 110/56
[2022-04-13] MEDS: TOPIRAMATE (TopAMAX) 25 MG TAB PO SCH (22:23)
[2022-04-13] MEDS: DOXAZOSIN MESYLATE 4 MG TAB PO SCH (22:23)
[2022-04-14 06:38] VITALS: BP 96/55
[2022-04-14] MEDS: buPROPion **XL** TABLET 150MG (WELLBUTRIN XL) PO SCH (08:03)
[2022-04-14] MEDS: NICOTINE 21MG/24HR 1 EA TRANSDERMAL TD SCH (08:03)
[2022-04-14] MEDS: METHADONE 10MG TAB PO SCH (08:03)
[2022-04-14] MEDS: ESCITALOPRAM OXALATE 10 MG TAB (LEXAPRO) PO SCH (08:04)
[2022-04-14] MEDS: CEPHALEXIN 500 MG CAP PO SCH ×4 (08:04→21:06)
[2022-04-14] MEDS: GABAPENTIN 400MG CAP PO SCH ×3 (08:04→21:06)
[2022-04-14] MEDS: SANTYL OINT 30GM TOP SCH (08:08)
[2022-04-14] MEDS ORDERED: buPROPion **XL** TABLET 150MG (WELLBUTRIN XL) PO ONE (09:30)
[2022-04-14 16:08] VITALS: BP 125/59
[2022-04-14] MEDS: TOPIRAMATE (TopAMAX) 25 MG TAB PO SCH (21:06)
[2022-04-14] MEDS: DOXAZOSIN MESYLATE 4 MG TAB PO SCH (21:06)
[2022-04-14] MEDS: IBUPROFEN 400MG TAB PO PRN (21:07)
[2022-04-14] MEDS: traZODone 50 MG TAB PO PRN (21:07)
[2022-04-15 06:28] VITALS: BP 122/58
[2022-04-15] MEDS: METHADONE 10MG TAB PO SCH (08:23)
[2022-04-15] MEDS: ESCITALOPRAM OXALATE 10 MG TAB (LEXAPRO) PO SCH (08:23)
[2022-04-15] MEDS: GABAPENTIN 400MG CAP PO SCH ×3 (08:23→20:33)
[2022-04-15] MEDS: buPROPion **XL** TABLET 150MG (WELLBUTRIN XL) PO SCH (08:24)
[2022-04-15] MEDS: CEPHALEXIN 500 MG CAP PO SCH ×4 (08:24→20:33)
[2022-04-15] MEDS: SANTYL OINT 30GM TOP SCH (08:24)
[2022-04-15] MEDS: NICOTINE 21MG/24HR 1 EA TRANSDERMAL TD SCH (08:24)
[2022-04-15] MEDS: IBUPROFEN 400MG TAB PO PRN ×2 (08:25→20:33)
[2022-04-15 18:13] VITALS: BP 124/71
[2022-04-15] MEDS: traZODone 50 MG TAB PO PRN (20:32)
[2022-04-15] MEDS: TOPIRAMATE (TopAMAX) 25 MG TAB PO SCH (20:32)
[2022-04-15] MEDS: DOXAZOSIN MESYLATE 4 MG TAB PO SCH (20:33)
[2022-04-16 05:59] VITALS: BP 117/69
[2022-04-16] MEDS: buPROPion **XL** TABLET 150MG (WELLBUTRIN XL) PO SCH (08:13)
[2022-04-16] MEDS: CEPHALEXIN 500 MG CAP PO SCH ×4 (08:13→20:08)
[2022-04-16] MEDS: METHADONE 10MG TAB PO SCH (08:13)
[2022-04-16] MEDS: ESCITALOPRAM OXALATE 10 MG TAB (LEXAPRO) PO SCH (08:13)
[2022-04-16] MEDS: GABAPENTIN 400MG CAP PO SCH ×3 (08:14→20:08)
[2022-04-16] MEDS: NICOTINE 21MG/24HR 1 EA TRANSDERMAL TD SCH (08:15)
[2022-04-16] MEDS: SANTYL OINT 30GM TOP SCH (09:00)
[2022-04-16] MEDS: hydrOXYzine 50 MG TAB PO PRN (09:22)
[2022-04-16 16:25] VITALS: BP 116/56
[2022-04-16] MEDS: TOPIRAMATE (TopAMAX) 25 MG TAB PO SCH (20:07)
[2022-04-16] MEDS: DOXAZOSIN MESYLATE 4 MG TAB PO SCH (20:08)
[2022-04-16] MEDS: traZODone 50 MG TAB PO PRN (20:08)
[2022-04-17 06:48] VITALS: BP 143/86
[2022-04-17] MEDS: NICOTINE 21MG/24HR 1 EA TRANSDERMAL TD SCH (08:27)
[2022-04-17] MEDS: GABAPENTIN 400MG CAP PO SCH ×3 (08:28→21:43)
[2022-04-17] MEDS: buPROPion **XL** TABLET 150MG (WELLBUTRIN XL) PO SCH (08:28)
[2022-04-17] MEDS: ESCITALOPRAM OXALATE 10 MG TAB (LEXAPRO) PO SCH (08:28)
[2022-04-17] MEDS: METHADONE 10MG TAB PO SCH (08:29)
[2022-04-17] MEDS: SANTYL OINT 30GM TOP SCH (08:33)
[2022-04-17] MEDS ORDERED: ESCITALOPRAM OXALATE 10 MG TAB (LEXAPRO) PO SCH (09:00)
[2022-04-17 16:12] VITALS: BP 120/75
[2022-04-17] MEDS: TOPIRAMATE (TopAMAX) 25 MG TAB PO SCH (21:43)
[2022-04-17] MEDS: traZODone 50 MG TAB PO PRN (21:43)
[2022-04-17] MEDS: DOXAZOSIN MESYLATE 4 MG TAB PO SCH (21:44)
[2022-04-18 06:40] VITALS: BP 127/79
[2022-04-18] MEDS: SANTYL OINT 30GM TOP SCH (08:36)
[2022-04-18] MEDS: METHADONE 10MG TAB PO SCH (08:39)
[2022-04-18] MEDS: NICOTINE 21MG/24HR 1 EA TRANSDERMAL TD SCH (08:39)
[2022-04-18] MEDS: GABAPENTIN 400MG CAP PO SCH ×3 (08:39→20:39)
[2022-04-18] MEDS: buPROPion **XL** TABLET 150MG (WELLBUTRIN XL) PO SCH (08:40)
[2022-04-18] MEDS: ESCITALOPRAM OXALATE 10 MG TAB (LEXAPRO) PO SCH (08:40)
[2022-04-18] MEDS: IBUPROFEN 400MG TAB PO PRN (15:25)
[2022-04-18 16:25] VITALS: BP 115/59
[2022-04-18] MEDS: DOXAZOSIN MESYLATE 4 MG TAB PO SCH (20:39)
[2022-04-18] MEDS: hydrOXYzine 50 MG TAB PO PRN (20:39)
[2022-04-18] MEDS: TOPIRAMATE (TopAMAX) 25 MG TAB PO SCH (20:39)
[2022-04-18] MEDS: traZODone 50 MG TAB PO PRN (20:39)
[2022-04-19 05:56] VITALS: BP 120/83
[2022-04-19] MEDS: SANTYL OINT 30GM TOP SCH (09:00)
[2022-04-19] MEDS: ESCITALOPRAM OXALATE 10 MG TAB (LEXAPRO) PO SCH (09:51)
[2022-04-19] MEDS: NICOTINE 21MG/24HR 1 EA TRANSDERMAL TD SCH (09:51)
[2022-04-19] MEDS: buPROPion **XL** TABLET 150MG (WELLBUTRIN XL) PO SCH (09:52)
[2022-04-19] MEDS: METHADONE 10MG TAB PO SCH (09:52)
[2022-04-19] MEDS: GABAPENTIN 400MG CAP PO SCH ×3 (09:52→20:13)
[2022-04-19] MEDS: hydrOXYzine 50 MG TAB PO PRN ×2 (11:34→20:13)
[2022-04-19 19:24] VITALS: BP 105/68
[2022-04-19] MEDS: traZODone 50 MG TAB PO PRN (20:14)
[2022-04-19] MEDS: TOPIRAMATE (TopAMAX) 25 MG TAB PO SCH (20:14)
[2022-04-19] MEDS: DOXAZOSIN MESYLATE 4 MG TAB PO SCH (20:15)
[2022-04-20 06:21] VITALS: BP 109/69
[2022-04-20] MEDS: METHADONE 10MG TAB PO SCH (08:16)
[2022-04-20] MEDS: ESCITALOPRAM OXALATE 10 MG TAB (LEXAPRO) PO SCH (08:17)
[2022-04-20] MEDS: NICOTINE 21MG/24HR 1 EA TRANSDERMAL TD SCH (08:17)
[2022-04-20] MEDS: buPROPion **XL** TABLET 150MG (WELLBUTRIN XL) PO SCH (08:17)
[2022-04-20] MEDS: GABAPENTIN 400MG CAP PO SCH ×3 (08:17→22:20)
[2022-04-20] MEDS: SANTYL OINT 30GM TOP SCH (08:55)
[2022-04-20] MEDS ORDERED: traZODone 100 MG TAB PO PRN (09:25)
[2022-04-20] MEDS: BREXPIPRAZOLE 0.5MG TABLET (REXULTI) PO SCH (10:44)
[2022-04-20 18:37] VITALS: BP 134/63
[2022-04-20 21:00] VITALS: BP 112/68
[2022-04-20] MEDS: DOXAZOSIN MESYLATE 4 MG TAB PO SCH (21:00)
[2022-04-20] MEDS: hydrOXYzine 50 MG TAB PO PRN (22:20)
[2022-04-20] MEDS: TOPIRAMATE (TopAMAX) 25 MG TAB PO SCH (22:20)
[2022-04-21 06:39] VITALS: BP 107/68
[2022-04-21 07:18] LABS: CHOLESTEROL RISK RATIO 7.52 (<5); HDL CHOLESTEROL 34.7 MG/DL (>40); LDL CHOLESTEROL 159.9 MG/DL (<100)
[2022-04-21] MEDS: SANTYL OINT 30GM TOP SCH (08:09)
[2022-04-21] MEDS: GABAPENTIN 400MG CAP PO SCH (08:12)
[2022-04-21] MEDS: METHADONE 10MG TAB PO SCH (08:12)
[2022-04-21] MEDS: ESCITALOPRAM OXALATE 10 MG TAB (LEXAPRO) PO SCH (08:12)
[2022-04-21] MEDS: NICOTINE 21MG/24HR 1 EA TRANSDERMAL TD SCH (08:12)
[2022-04-21] MEDS: BREXPIPRAZOLE 0.5MG TABLET (REXULTI) PO SCH (08:12)
[2022-04-21] MEDS: buPROPion **XL** TABLET 150MG (WELLBUTRIN XL) PO SCH (08:12)
[2022-04-21] MEDS ORDERED: REXU1TAB2 PO (10:13)
[2022-04-21] MEDS ORDERED: HYDR50TA70 PO (10:13)
[2022-04-21] MEDS ORDERED: BUPR150T12 PO (10:13)
[2022-04-21] MEDS ORDERED: SANT250O8 TOP (10:13)
[2022-04-21] MEDS ORDERED: DOXA1TAB67 PO (10:13)
[2022-04-21] MEDS ORDERED: GABA800T4 PO (10:13)
[2022-04-21] MEDS ORDERED: LEXA1TAB PO ×2 (10:13→10:15)
[2022-04-21] MEDS ORDERED: TOPI50TA9 PO (10:13)
[2022-04-21] MEDS ORDERED: TRAZ-257 PO (10:13)
== END 2022-04-21 12:05 | disposition home or self-care (01) | DRG 755 ==
LOC: M ED 14:16 → M ED INP 04-06 01:06 → M PSY 04-06 01:44
PROVIDERS: ADMIT Psychiatry & Neurology Psychiatry; ATTEND Psychiatry & Neurology Psychiatry
DX: F43.10 Post-traumatic stress disorder, unspecified (principal); F32.A Depression, unspecified; R45.851 Suicidal ideations; I10 Essential (primary) hypertension; M79.7 Fibromyalgia; F17.200 Nicotine dependence, unspecified, uncomplicated; Z79.899 Other long term (current) drug therapy; Z88.5 Allergy status to narcotic agent; Z88.8 Allergy status to other drugs, medicaments and biological substances; Z20.822 Contact with and (suspected) exposure to COVID-19; M54.2 Cervicalgia; G89.29 Other chronic pain; L03.114 Cellulitis of left upper limb; F16.10 Hallucinogen abuse, uncomplicated; F41.0 Panic disorder [episodic paroxysmal anxiety]; Z62.812 Personal history of neglect in childhood; Z56.0 Unemployment, unspecified

== ENCOUNTER 2022-09-17 13:22 | Inpatient (IN) | payer MEDICAID, OTHER ==
[~2022-09-17] VITALS: Ht 170.2 cm; Wt 111.0 kg
[~2022-09-17 13:22] MED LIST changes: +ACET-897 PO; +BUPR150T12 PO; -CARD1TAB4 PO; +DOXA1TAB67 PO; +DOXA1TAB91 PO; +GABA800T4 PO; +HYDR50TA70 PO; +IBUP200T46 PO; +LEXA1TAB2 PO; +METH-1177 PO; -NIFE60TA40 PO; +NIFE60TA96 PO; +REXU1TAB2 PO; +SANT250O8 TOP; +TOPI-254 PO; +TRAZ-257 PO
[2022-09-17] MEDS ORDERED: DOXE150C PO (14:21)
[2022-09-17 15:29] LABS: BASO % 0.4 % (0.0-1.0); EOS % 0.7 % (0.0-3.0); HEMATOCRIT 33.9 % (36.0-47.0); HEMOGLOBIN 10.7 g/dl (12.0-15.5); LYMPH # 1.2 10^3/uL (1.5-5.0); LYMPH % 22.9 % (24.0-44.0); MEAN CORPUSCULAR HEMOGLOBIN 26.1 pg (27.0-33.0); MEAN CORPUSCULAR HGB CONC 31.6 g/dl (32.0-36.5); MEAN CORPUSCULAR VOLUME 82.7 fl (80.0-96.0); MONO # 0.3 10^3/uL (0.0-0.8); MONO % 6.2 % (2.0-8.0); NEUTROPHILS # 3.7 10^3/uL (1.5-8.5); NEUTROPHILS % 69.6 % (36.0-66.0); PLATELET COUNT, AUTOMATED 237 10^3/uL (150-450); WHITE BLOOD COUNT 5.4 10^3/uL (4.0-10.0)
[2022-09-17 15:51] LABS: BLOOD UREA NITROGEN 9 MG/DL (9-23); CALCIUM LEVEL 9.4 MG/DL (8.5-10.1); CARBON DIOXIDE LEVEL 28 MMOL/L (20-31); CHLORIDE LEVEL 102 MMOL/L (98-107); CK-MB VALUE MASS 4.1 NG/ML (<3.6); CPK CREATINE PHOSPHOKINASE 176 U/L (34-145); CREATININE FOR GFR 0.62 MG/DL (0.55-1.30); GLOMERULAR FILTRATION RATE > 60.0 (>60); GLUCOSE, FASTING 81 MG/DL (60-100); MB/CK RELATIVE INDEX 2.32 (< OR =4); SODIUM LEVEL 136 MMOL/L (136-145)
[2022-09-17 18:46] LABS: AMPHETAMINES LEVEL URINE NEGATIVE (NEGATIVE); COCAINE METABOLITE URINE NEGATIVE (NEGATIVE); PHENCYCLIDINE URINE NEGATIVE (NEGATIVE)
[2022-09-17 18:47] LABS: BARBITURATES URINE NEGATIVE (NEGATIVE); CANNABINOIDS URINE NEGATIVE (NEGATIVE); OPIATES URINE NEGATIVE (NEGATIVE)
[2022-09-17 18:48] LABS: BENZODIAZEPINES URINE POSITIVE (NEGATIVE); METHADONE URINE POSITIVE (NEGATIVE)
[2022-09-17] MEDS ORDERED: MOM 30ML SUSPENSION UDC PO PRN (20:25)
[2022-09-17] MEDS ORDERED: ACETAMINOPHEN TAB 650MG DOSE (2X325MG) PO PRN (20:25)
[2022-09-17] MEDS ORDERED: LORazepam 1 MG TAB PO PRN (20:25)
[2022-09-17] MEDS ORDERED: GABAPENTIN 400MG CAP PO PRN (20:25)
[2022-09-17] MEDS ORDERED: MAALOX 30 ML SUSP *UDC PO PRN (20:25)
[2022-09-17] MEDS ORDERED: DOXE25CA PO (20:32)
[2022-09-17] MEDS ORDERED: METH10CO3 PO (20:32)
[2022-09-17] MEDS ORDERED: LEXA1TAB2 PO (20:32)
[2022-09-17] MEDS ORDERED: GABA800T4 PO (20:32)
[2022-09-17] MEDS ORDERED: LEXA1TAB PO (20:32)
[2022-09-17] MEDS ORDERED: DOXA1TAB67 PO (20:32)
[2022-09-17] MEDS ORDERED: REXU1TAB2 PO (20:32)
[2022-09-17] MEDS ORDERED: HOME MED LIST COMPLETE! XX SCH (20:35)
[2022-09-17 21:26] LABS: ETHYL ALCOHOL (ETHANOL) < 0.003 % (0.000-0.010)
[2022-09-17 21:28] LABS: ACETAMINOPHEN LEVEL < 2.0 UG/ML (10.0-20.0); ALKALINE PHOSPHATASE 79 U/L (46-116); ALT/SGPT 13 U/L (7.0-40); AST/SGOT 21 U/L (<34); BILIRUBIN,DIRECT < 0.1 MG/DL (<0.4); BILIRUBIN,TOTAL 0.3 MG/DL (0.3-1.2); SALICYLATE LEVEL < 3.0 MG/DL (<30); TOTAL PROTEIN 7.4 G/DL (5.7-8.2)
[2022-09-17 21:31] LABS: THYROID STIMULATING HORMONE 0.827 uIU/ML (0.55-4.78)
[2022-09-18 00:01] VITALS: BP 145/93; TEMP 98.1; O2SAT 97
[2022-09-18] MEDS: DOXEPIN 25 MG CAP PO SCH ×2 (02:07→21:50)
[2022-09-18] MEDS: DOXAZOSIN MESYLATE 4 MG TAB PO SCH ×2 (02:08→21:51)
[2022-09-18 06:41] VITALS: BP 131/79; TEMP 97.9; O2SAT 97
[2022-09-18] MEDS ORDERED: BREXPIPRAZOLE 0.5MG TABLET (REXULTI) PO SCH (09:00)
[2022-09-18] MEDS: GABAPENTIN 400MG CAP PO SCH ×3 (09:00→21:50)
[2022-09-18] MEDS ORDERED: ESCITALOPRAM OXALATE 10 MG TAB (LEXAPRO) PO ONE (09:00)
[2022-09-18] MEDS: METHADONE 10MG TAB PO SCH (09:09)
[2022-09-18] MEDS: DESVENLAFAXINE ER 50MG TABLET (PRISTIQ) PO SCH (12:12)
[2022-09-18 13:51] LABS: MAGNESIUM LEVEL 1.9 MG/DL (1.8-2.4)
[2022-09-18 16:48] VITALS: BP 127/74; TEMP 97.8; O2SAT 95
[2022-09-18 19:27] LABS: PROCALCITONIN <0.04 ng/ml
[2022-09-18] MEDS: MIRTAZAPINE 15 MG TAB PO SCH (21:50)
[2022-09-18] MEDS: DOXYCYCLINE HYCLATE 100MG TABLET PO SCH (21:50)
[2022-09-19 06:32] VITALS: BP 140/81; TEMP 98.3; O2SAT 100
[2022-09-19] MEDS: METHADONE 10MG TAB PO SCH (08:16)
[2022-09-19] MEDS: BREXPIPRAZOLE 0.5MG TABLET (REXULTI) PO SCH (08:16)
[2022-09-19] MEDS: DESVENLAFAXINE ER 50MG TABLET (PRISTIQ) PO SCH (08:16)
[2022-09-19] MEDS: DOXYCYCLINE HYCLATE 100MG TABLET PO SCH ×2 (08:16→22:38)
[2022-09-19] MEDS: GABAPENTIN 400MG CAP PO SCH ×3 (08:16→22:35)
[2022-09-19] MEDS: ESCITALOPRAM OXALATE 10 MG TAB (LEXAPRO) PO SCH (08:16)
[2022-09-19 16:16] VITALS: BP 123/66; TEMP 98.5; O2SAT 95
[2022-09-19] MEDS: diphenhydrAMINE 25MG CAP PO PRN (17:48)
[2022-09-19] MEDS: NICOTINE 21MG/24HR 1 EA TRANSDERMAL TD PRN (17:48)
[2022-09-19] MEDS: DOXEPIN 25 MG CAP PO SCH (22:35)
[2022-09-19] MEDS: MIRTAZAPINE 15 MG TAB PO SCH (22:38)
[2022-09-19] MEDS: DOXAZOSIN MESYLATE 4 MG TAB PO SCH (22:38)
[2022-09-20 06:33] VITALS: BP 152/92; TEMP 97.3; O2SAT 100
[2022-09-20] MEDS: BREXPIPRAZOLE 0.5MG TABLET (REXULTI) PO SCH (07:56)
[2022-09-20] MEDS: DOXYCYCLINE HYCLATE 100MG TABLET PO SCH ×2 (07:57→21:39)
[2022-09-20] MEDS: GABAPENTIN 400MG CAP PO SCH ×3 (07:57→21:38)
[2022-09-20] MEDS: ESCITALOPRAM OXALATE 10 MG TAB (LEXAPRO) PO SCH (07:57)
[2022-09-20] MEDS: DESVENLAFAXINE ER 50MG TABLET (PRISTIQ) PO SCH (07:57)
[2022-09-20] MEDS: NICOTINE 21MG/24HR 1 EA TRANSDERMAL TD PRN (08:00)
[2022-09-20] MEDS ORDERED: METHADONE 10MG TAB PO ONE (08:45)
[2022-09-20] MEDS ORDERED: METHADONE 10MG TAB PO SCH (09:00)
[2022-09-20] MEDS: diphenhydrAMINE 25MG CAP PO PRN (09:27)
[2022-09-20 18:00] VITALS: BP 141/81; TEMP 98.3
[2022-09-20] MEDS: MIRTAZAPINE 15 MG TAB PO SCH (21:38)
[2022-09-20] MEDS: DOXEPIN 25 MG CAP PO SCH (21:39)
[2022-09-20] MEDS: DOXAZOSIN MESYLATE 4 MG TAB PO SCH (22:06)
[2022-09-21 06:22] VITALS: BP 110/60; TEMP 97.5; O2SAT 100
[2022-09-21] MEDS: DOXYCYCLINE HYCLATE 100MG TABLET PO SCH ×2 (08:00→21:29)
[2022-09-21] MEDS: BREXPIPRAZOLE 0.5MG TABLET (REXULTI) PO SCH (08:00)
[2022-09-21] MEDS: GABAPENTIN 400MG CAP PO SCH ×3 (08:00→21:29)
[2022-09-21] MEDS: ESCITALOPRAM OXALATE 10 MG TAB (LEXAPRO) PO SCH (08:01)
[2022-09-21] MEDS: DESVENLAFAXINE ER 50MG TABLET (PRISTIQ) PO SCH (08:01)
[2022-09-21] MEDS: METHADONE 10MG TAB PO SCH (08:01)
[2022-09-21] MEDS: NICOTINE 21MG/24HR 1 EA TRANSDERMAL TD PRN (08:02)
[2022-09-21] MEDS ORDERED: METHADONE 10MG TAB PO SCH (09:00)
[2022-09-21] MEDS: diphenhydrAMINE 25MG CAP PO PRN (16:21)
[2022-09-21 17:55] VITALS: BP 150/80; TEMP 98
[2022-09-21] MEDS: DOXEPIN 25 MG CAP PO SCH (21:29)
[2022-09-21] MEDS: DOXAZOSIN MESYLATE 4 MG TAB PO SCH (21:29)
[2022-09-21] MEDS: MIRTAZAPINE 15 MG TAB PO SCH (21:29)
[2022-09-22 06:02] VITALS: BP 121/76; TEMP 97; O2SAT 98
[2022-09-22] MEDS: GABAPENTIN 400MG CAP PO SCH ×3 (08:04→21:09)
[2022-09-22] MEDS: DESVENLAFAXINE ER 50MG TABLET (PRISTIQ) PO SCH (08:04)
[2022-09-22] MEDS: DOXYCYCLINE HYCLATE 100MG TABLET PO SCH ×2 (08:04→21:10)
[2022-09-22] MEDS: BREXPIPRAZOLE 0.5MG TABLET (REXULTI) PO SCH (08:05)
[2022-09-22] MEDS: NICOTINE 21MG/24HR 1 EA TRANSDERMAL TD PRN (08:05)
[2022-09-22] MEDS: METHADONE 10MG TAB PO SCH (08:05)
[2022-09-22] MEDS: LOPERAMIDE 2 MG CAPLET PO PRN ×2 (08:31→16:46)
[2022-09-22] MEDS: diphenhydrAMINE 25MG CAP PO PRN (12:49)
[2022-09-22] MEDS: IBUPROFEN 400MG TAB PO PRN (16:47)
[2022-09-22 18:21] VITALS: BP 134/82; TEMP 97.7
[2022-09-22] MEDS: DOXAZOSIN MESYLATE 4 MG TAB PO SCH (21:09)
[2022-09-22] MEDS: traZODone 50 MG TAB PO PRN (21:09)
[2022-09-22] MEDS: DOXEPIN 25 MG CAP PO SCH (21:10)
[2022-09-22] MEDS: MIRTAZAPINE 15 MG TAB PO SCH (21:10)
[2022-09-23 06:34] VITALS: BP 135/81; TEMP 97.3; O2SAT 97
[2022-09-23] MEDS: GABAPENTIN 400MG CAP PO SCH ×3 (08:24→20:52)
[2022-09-23] MEDS: BREXPIPRAZOLE 0.5MG TABLET (REXULTI) PO SCH (08:24)
[2022-09-23] MEDS: METHADONE 10MG TAB PO SCH (08:25)
[2022-09-23] MEDS: DESVENLAFAXINE ER 50MG TABLET (PRISTIQ) PO SCH (08:26)
[2022-09-23] MEDS: DOXYCYCLINE HYCLATE 100MG TABLET PO SCH ×2 (08:26→20:53)
[2022-09-23] MEDS: LOPERAMIDE 2 MG CAPLET PO PRN ×4 (08:27→16:51)
[2022-09-23] MEDS: NICOTINE 21MG/24HR 1 EA TRANSDERMAL TD PRN (09:16)
[2022-09-23] MEDS: diphenhydrAMINE 25MG CAP PO PRN ×2 (09:18→16:52)
[2022-09-23] MEDS: IBUPROFEN 400MG TAB PO PRN (10:40)
[2022-09-23 18:50] VITALS: BP 135/90; TEMP 98.4
[2022-09-23] MEDS: MIRTAZAPINE 15 MG TAB PO SCH (20:53)
[2022-09-23] MEDS: DOXEPIN 25 MG CAP PO SCH (20:53)
[2022-09-23] MEDS: DOXAZOSIN MESYLATE 4 MG TAB PO SCH (20:53)
[2022-09-23] MEDS: traZODone 50 MG TAB PO PRN (20:53)
[2022-09-24 06:31] VITALS: BP 137/95; TEMP 97.1; O2SAT 100
[2022-09-24] MEDS: LOPERAMIDE 2 MG CAPLET PO PRN ×3 (08:06→16:55)
[2022-09-24] MEDS: BREXPIPRAZOLE 0.5MG TABLET (REXULTI) PO SCH (08:06)
[2022-09-24] MEDS: diphenhydrAMINE 25MG CAP PO PRN (08:06)
[2022-09-24] MEDS: GABAPENTIN 400MG CAP PO SCH ×3 (08:07→21:31)
[2022-09-24] MEDS: METHADONE 10MG TAB PO SCH (08:07)
[2022-09-24] MEDS: DESVENLAFAXINE ER 50MG TABLET (PRISTIQ) PO SCH (08:07)
[2022-09-24] MEDS: DOXYCYCLINE HYCLATE 100MG TABLET PO SCH ×2 (08:07→21:32)
[2022-09-24] MEDS: NICOTINE 21MG/24HR 1 EA TRANSDERMAL TD PRN (08:08)
[2022-09-24] MEDS ORDERED: cloNIDine 0.1MG TABLET PO PRN ×2 (14:45)
[2022-09-24 18:47] VITALS: BP 132/80; TEMP 97.1
[2022-09-24] MEDS: DOXAZOSIN MESYLATE 4 MG TAB PO SCH (21:30)
[2022-09-24] MEDS: DOXEPIN 25 MG CAP PO SCH (21:32)
[2022-09-24] MEDS: MIRTAZAPINE 15 MG TAB PO SCH (21:32)
[2022-09-24] MEDS: traZODone 100 MG TAB PO PRN (21:33)
[2022-09-24] MEDS: IBUPROFEN 400MG TAB PO PRN (21:34)
[2022-09-25 06:21] VITALS: BP 132/77; TEMP 97; O2SAT 98
[2022-09-25] MEDS: LOPERAMIDE 2 MG CAPLET PO PRN ×2 (08:00→18:26)
[2022-09-25] MEDS: DOXYCYCLINE HYCLATE 100MG TABLET PO SCH (08:00)
[2022-09-25] MEDS: BREXPIPRAZOLE 0.5MG TABLET (REXULTI) PO SCH (08:00)
[2022-09-25] MEDS: GABAPENTIN 400MG CAP PO SCH ×3 (08:00→20:30)
[2022-09-25] MEDS: METHADONE 10MG TAB PO SCH (08:00)
[2022-09-25] MEDS: NICOTINE 21MG/24HR 1 EA TRANSDERMAL TD PRN (08:02)
[2022-09-25] MEDS: DESVENLAFAXINE ER 50MG TABLET (PRISTIQ) PO SCH (08:02)
[2022-09-25] MEDS: diphenhydrAMINE 25MG CAP PO PRN (10:38)
[2022-09-25] MEDS: cloNIDine 0.1MG TABLET PO PRN (14:17)
[2022-09-25 18:00] VITALS: BP 146/70; TEMP 98; O2SAT 100
[2022-09-25] MEDS: IBUPROFEN 400MG TAB PO PRN (18:27)
[2022-09-25] MEDS: DOXEPIN 25 MG CAP PO SCH (20:29)
[2022-09-25] MEDS: DOXAZOSIN MESYLATE 4 MG TAB PO SCH (20:29)
[2022-09-25] MEDS: MIRTAZAPINE 15 MG TAB PO SCH (20:30)
[2022-09-26 06:27] VITALS: BP 128/73; TEMP 97.4; O2SAT 98
[2022-09-26] MEDS: GABAPENTIN 400MG CAP PO SCH ×3 (07:44→20:55)
[2022-09-26] MEDS: BREXPIPRAZOLE 0.5MG TABLET (REXULTI) PO SCH (07:45)
[2022-09-26] MEDS: DESVENLAFAXINE ER 50MG TABLET (PRISTIQ) PO SCH (07:45)
[2022-09-26] MEDS: METHADONE 10MG TAB PO SCH (07:45)
[2022-09-26] MEDS: NICOTINE 21MG/24HR 1 EA TRANSDERMAL TD PRN (07:47)
[2022-09-26] MEDS: cloNIDine 0.1MG TABLET PO PRN ×2 (08:36→17:13)
[2022-09-26] MEDS: IBUPROFEN 400MG TAB PO PRN (08:37)
[2022-09-26] MEDS: diphenhydrAMINE 25MG CAP PO PRN (11:48)
[2022-09-26 18:08] VITALS: BP 142/79; TEMP 98.3
[2022-09-26] MEDS: DOXEPIN 25 MG CAP PO SCH (20:55)
[2022-09-26] MEDS: MIRTAZAPINE 15 MG TAB PO SCH (20:56)
[2022-09-26] MEDS: DOXAZOSIN MESYLATE 4 MG TAB PO SCH (20:57)
[2022-09-27] MEDS: traZODone 100 MG TAB PO PRN (01:22)
[2022-09-27 01:24] VITALS: BP 121/83
[2022-09-27] MEDS: cloNIDine 0.1MG TABLET PO PRN (01:24)
[2022-09-27 06:01] VITALS: BP 125/63; TEMP 97.6; O2SAT 99
[2022-09-27] MEDS: GABAPENTIN 400MG CAP PO SCH (08:19)
[2022-09-27] MEDS: BREXPIPRAZOLE 0.5MG TABLET (REXULTI) PO SCH (08:20)
[2022-09-27] MEDS: METHADONE 10MG TAB PO SCH (08:20)
[2022-09-27] MEDS: DESVENLAFAXINE ER 50MG TABLET (PRISTIQ) PO SCH (08:20)
[2022-09-27] MEDS: NICOTINE 21MG/24HR 1 EA TRANSDERMAL TD PRN (08:21)
[2022-09-27] MEDS ORDERED: TRAZ-257 PO (08:56)
[2022-09-27] MEDS ORDERED: DESV50TA3 PO (08:56)
[2022-09-27] MEDS ORDERED: MIRT-10 PO (08:56)
[2022-09-27] MEDS ORDERED: REXU1TAB2 PO (08:56)
[2022-09-27] MEDS ORDERED: GABA800T4 PO (08:56)
[2022-09-27] MEDS ORDERED: DOXE25CA PO (08:56)
[2022-09-27] MEDS ORDERED: DOXA4TAB PO (08:56)
== END 2022-09-27 11:42 | disposition home or self-care (01) | DRG 754 ==
LOC: M ED 13:22 → M ED INP 20:21 → M PSY 23:55
PROVIDERS: ADMIT Psychiatry & Neurology Psychiatry; ATTEND Student in an Organized Health Care Education/Training Program
DX: F32.9 Major depressive disorder, single episode, unspecified (principal); R45.851 Suicidal ideations; F43.10 Post-traumatic stress disorder, unspecified; F41.9 Anxiety disorder, unspecified; M54.9 Dorsalgia, unspecified; G89.29 Other chronic pain; M79.7 Fibromyalgia; R94.31 Abnormal electrocardiogram [ECG] [EKG]; F17.210 Nicotine dependence, cigarettes, uncomplicated; F11.23 Opioid dependence with withdrawal; G25.81 Restless legs syndrome; R19.7 Diarrhea, unspecified; Z56.0 Unemployment, unspecified; Z63.5 Disruption of family by separation and divorce; Z79.899 Other long term (current) drug therapy; Z88.5 Allergy status to narcotic agent; Z88.8 Allergy status to other drugs, medicaments and biological substances

== ENCOUNTER 2022-09-29 13:50 | Emergency (ER) | payer MEDICAID, OTHER ==
[~2022-09-29] VITALS: Ht 48.3 cm; Wt 106.0 kg
[~2022-09-29 13:50] MED LIST changes: +DESV50TA3 PO; +DOXA4TAB PO; +DOXE150C PO; +DOXE25CA PO
[2022-09-29] MEDS ORDERED: DOXE10CA (14:12)
[2022-09-29 15:03] LABS: HEMATOCRIT 34.2 % (36.0-47.0); HEMOGLOBIN 10.8 g/dl (12.0-15.5); MEAN CORPUSCULAR HGB CONC 31.6 g/dl (32.0-36.5); MEAN CORPUSCULAR VOLUME 82.4 fl (80.0-96.0); PLATELET COUNT, AUTOMATED 209 10^3/uL (150-450); RED BLOOD COUNT 4.15 10^6/uL (4.00-5.40); WHITE BLOOD COUNT 7.5 10^3/uL (4.0-10.0)
[2022-09-29 15:36] LABS: BLOOD UREA NITROGEN 11 MG/DL (9-23); CALCIUM LEVEL 9.9 MG/DL (8.5-10.1); CARBON DIOXIDE LEVEL 25 MMOL/L (20-31); CHLORIDE LEVEL 106 MMOL/L (98-107); CREATININE FOR GFR 0.52 MG/DL (0.55-1.30); GLOMERULAR FILTRATION RATE > 60.0 (>60); GLUCOSE, FASTING 102 MG/DL (60-100); POTASSIUM SERUM 2.8 MMOL/L (3.5-5.1); SODIUM LEVEL 141 MMOL/L (136-145)
[2022-09-29] MEDS ORDERED: METH-1177 PO (15:50)
[2022-09-29] MEDS ORDERED: POTASSIUM CHLORIDE 10MEQ SR TABLET PO ONE (16:00)
[2022-09-29 16:15] LABS: AMPHETAMINES LEVEL URINE NEGATIVE (NEGATIVE); BARBITURATES URINE NEGATIVE (NEGATIVE); COCAINE METABOLITE URINE NEGATIVE (NEGATIVE); OPIATES URINE NEGATIVE (NEGATIVE); PHENCYCLIDINE URINE NEGATIVE (NEGATIVE)
[2022-09-29 16:16] LABS: BENZODIAZEPINES URINE NEGATIVE (NEGATIVE); CANNABINOIDS URINE NEGATIVE (NEGATIVE)
[2022-09-29 16:17] LABS: METHADONE URINE POSITIVE (NEGATIVE)
[2022-09-29] MEDS ORDERED: ISOVUE-370 76% 100ML VIAL As Ordered ONE (17:20)
[2022-09-29 19:45] VITALS: BP 143/88; TEMP 98.5
[2022-09-29] MEDS ORDERED: POTA-151 PO (19:50)
[2022-09-29] MEDS ORDERED: MAGN400T2 PO (19:50)
[2022-09-29 20:00] VITALS: O2SAT 99
== END 2022-09-29 20:12 | disposition home or self-care (01) ==
LOC: M ED 13:50
DX: R07.89 Other chest pain (principal); E87.6 Hypokalemia; E66.9 Obesity, unspecified; F41.0 Panic disorder [episodic paroxysmal anxiety]; F43.10 Post-traumatic stress disorder, unspecified; F11.10 Opioid abuse, uncomplicated; Z88.5 Allergy status to narcotic agent; Z88.8 Allergy status to other drugs, medicaments and biological substances; Z79.899 Other long term (current) drug therapy
CPT/HCPCS: 36415; 71275; 80048; 80307; 85027; 93005; 93041; 94760; 99285; Q9967

== ENCOUNTER 2022-12-07 14:57 | Observation (INO) | payer OTHER ==
[~2022-12-07] VITALS: Ht 170.2 cm; Wt 115.2 kg
[~2022-12-07 14:57] MED LIST changes: +DOXE10CA; -GABA-283 PO; +GABA-284 PO; +MAGN400T2 PO; +POTA-151 PO
[2022-12-07 15:45] LABS: BASO % 0.4 % (0.0-1.0); EOS # 0.1 10^3/uL (0.0-0.5); EOS % 1.8 % (0.0-3.0); HEMATOCRIT 35.1 % (36.0-47.0); HEMOGLOBIN 11.1 g/dl (12.0-15.5); LYMPH # 1.9 10^3/uL (1.5-5.0); LYMPH % 34.4 % (24.0-44.0); MEAN CORPUSCULAR HEMOGLOBIN 26.2 pg (27.0-33.0); MEAN CORPUSCULAR HGB CONC 31.6 g/dl (32.0-36.5); MONO # 0.5 10^3/uL (0.0-0.8); MONO % 8.8 % (2.0-8.0); NEUTROPHILS % 54.6 % (36.0-66.0); PLATELET COUNT, AUTOMATED 257 10^3/uL (150-450); RED BLOOD COUNT 4.23 10^6/uL (4.00-5.40); WHITE BLOOD COUNT 5.4 10^3/uL (4.0-10.0)
[2022-12-07 16:12] LABS: BLOOD UREA NITROGEN 13 MG/DL (9-23); CALCIUM LEVEL 9.3 MG/DL (8.5-10.1); CARBON DIOXIDE LEVEL 33 MMOL/L (20-31); CHLORIDE LEVEL 102 MMOL/L (98-107); CK-MB VALUE MASS 13.1 NG/ML (<3.6); GLOMERULAR FILTRATION RATE > 60.0 (>60); GLUCOSE, FASTING 86 MG/DL (60-100); POTASSIUM SERUM 3.8 MMOL/L (3.5-5.1); SODIUM LEVEL 141 MMOL/L (136-145)
[2022-12-07 16:25] LABS: CPK CREATINE PHOSPHOKINASE 1707 U/L (34-145); MB/CK RELATIVE INDEX 0.76 (< OR =4)
[2022-12-07] MEDS ORDERED: LORazepam 2 MG/ML 1ML VIAL IV STA (17:36)
[2022-12-07] MEDS ORDERED: NS 1,000 ML IV ONE ×3 (17:40→21:10)
[2022-12-07 18:06] LABS: FREE T4 0.99 NG/DL (0.89-1.76)
[2022-12-07 18:07] LABS: THYROID STIMULATING HORMONE 2.747 uIU/ML (0.55-4.78)
[2022-12-07] MEDS ORDERED: CLON0.2T PO (18:12)
[2022-12-07 18:26] LABS: MAGNESIUM LEVEL 1.9 MG/DL (1.8-2.4)
[2022-12-07 18:27] LABS: AMORPHOUS SEDIMENT SMALL (NEGATIVE); APPEARANCE, URINE CLOUDY (CLEAR); BACTERIA, URINE AUTO NEGATIVE (NEGATIVE); BILIRUBIN, URINE AUTO NEGATIVE (NEGATIVE); BLOOD, URINE BLOOD NEGATIVE (NEGATIVE); COLOR, URINE YELLOW (YELLOW); GLUCOSE, URINE (UA) AUTO NEGATIVE (NEGATIVE); KETONE, URINE AUTO TRACE mg/dL (NEGATIVE); LEUKOCYTE ESTERASE, URINE AUTO 1+ (NEGATIVE); MUCUS, URINE SMALL (NEGATIVE); NITRITE, URINE AUTO NEGATIVE (NEGATIVE); PROTEIN, URINE AUTO 1+ mg/dL (NEGATIVE); RBC, URINE AUTO 1 /HPF (0-3); SPECIFIC GRAVITY URINE AUTO 1.036 (1.002-1.035); SQUAMOUS EPITHELIAL CELL UR AU 3 /HPF (0-6); WBC, URINE AUTO 4 /HPF (0-3)
[2022-12-07 18:40] LABS: AMPHETAMINES LEVEL URINE NEGATIVE (NEGATIVE); BARBITURATES URINE NEGATIVE (NEGATIVE); BENZODIAZEPINES URINE NEGATIVE (NEGATIVE); CANNABINOIDS URINE NEGATIVE (NEGATIVE); COCAINE METABOLITE URINE NEGATIVE (NEGATIVE); OPIATES URINE NEGATIVE (NEGATIVE); PHENCYCLIDINE URINE NEGATIVE (NEGATIVE)
[2022-12-07 18:42] LABS: CK-MB VALUE MASS 12.2 NG/ML (<3.6)
[2022-12-07 19:00] LABS: CPK CREATINE PHOSPHOKINASE 2087 U/L (34-145); MB/CK RELATIVE INDEX 0.58 (< OR =4); METHADONE URINE POSITIVE (NEGATIVE)
[2022-12-07 19:28] LABS: HCG, SERUM QUALITATIVE NEGATIVE (NEGATIVE)
[2022-12-07] MEDS ORDERED: ISOVUE-370 76% 100ML VIAL As Ordered ONE (20:04)
[2022-12-08] MEDS ORDERED: ACETAMINOPHEN *IV* 1,000 MG in IV 1 EA IV ONE (01:45)
[2022-12-08] MEDS ORDERED: ACETAMINOPHEN TAB 650MG DOSE (2X325MG) PO PRN (02:00)
[2022-12-08] MEDS ORDERED: KETOROLAC 30 MG/ML 1ML VIAL IV PRN (02:05)
[2022-12-08] MEDS ORDERED: METH10CO PO (02:18)
[2022-12-08] MEDS ORDERED: MAGN400T2 PO ×2 (02:18→11:47)
[2022-12-08] MEDS ORDERED: NICO2LOZ MT (02:21)
[2022-12-08] MEDS ORDERED: ATOM80CA PO (02:21)
[2022-12-08] MEDS ORDERED: ASPI-655 PO (02:21)
[2022-12-08] MEDS ORDERED: MED REC IN PROGRESS XX SCH (02:25)
[2022-12-08] MEDS ORDERED: RAMELTEON 8 MG TAB (ROZEREM) PO PRN (02:45)
[2022-12-08 03:00] VITALS: BP 143/96; TEMP 97.5; O2SAT 96
[2022-12-08] MEDS ORDERED: cloNIDine 0.2 MG TAB PO PRN (03:55)
[2022-12-08] MEDS ORDERED: ASPIRIN 81MG CHEW TABLET PO PRN (03:55)
[2022-12-08] MEDS ORDERED: cloNIDine 0.2 MG TAB PO ONE (04:00)
[2022-12-08 06:00] VITALS: BP 126/74; TEMP 97.4; O2SAT 96
[2022-12-08 06:33] LABS: HEMATOCRIT 32.6 % (36.0-47.0); HEMOGLOBIN 10.4 g/dl (12.0-15.5); MEAN CORPUSCULAR HEMOGLOBIN 26.8 pg (27.0-33.0); MEAN CORPUSCULAR HGB CONC 31.9 g/dl (32.0-36.5); PLATELET COUNT, AUTOMATED 215 10^3/uL (150-450); RED BLOOD COUNT 3.88 10^6/uL (4.00-5.40)
[2022-12-08 07:07] LABS: BLOOD UREA NITROGEN 10 MG/DL (9-23); CALCIUM LEVEL 8.1 MG/DL (8.5-10.1); CARBON DIOXIDE LEVEL 28 MMOL/L (20-31); CHLORIDE LEVEL 107 MMOL/L (98-107); CREATININE FOR GFR 0.59 MG/DL (0.55-1.30); GLOMERULAR FILTRATION RATE > 60.0 (>60); GLUCOSE, FASTING 99 MG/DL (60-100); MAGNESIUM LEVEL 1.8 MG/DL (1.8-2.4); POTASSIUM SERUM 4.1 MMOL/L (3.5-5.1); SODIUM LEVEL 142 MMOL/L (136-145)
[2022-12-08] MEDS ORDERED: HOME MED LIST COMPLETE! XX SCH (08:25)
[2022-12-08] MEDS ORDERED: MAGNESIUM OXIDE 400MG TAB (MAG-OX) PO SCH (09:00)
[2022-12-08] MEDS ORDERED: METHADONE 10MG TAB PO SCH (09:00)
[2022-12-08] MEDS ORDERED: METOPROLOL TART 12.5 MG PER 1/2 TAB PO SCH (09:00)
[2022-12-08] MEDS ORDERED: GABAPENTIN 400MG CAP PO SCH (09:00)
[2022-12-08 09:30] VITALS: BP 134/82
[2022-12-08] MEDS ORDERED: MAG SULF 1GM/100ML (MAG RUN) 1 GM in IV 1 EA IV ONE (12:00)
[2022-12-08] MEDS ORDERED: DOXAZOSIN MESYLATE 4 MG TAB PO SCH (21:00)
== END 2022-12-08 14:10 | disposition home or self-care (01) ==
LOC: M ED 14:57 → M ED INP 14:58 → M MS4PR 12-08 02:45
PROVIDERS: ADMIT Internal Medicine; ATTEND Internal Medicine
DX: R00.2 Palpitations (principal); R07.89 Other chest pain; F41.9 Anxiety disorder, unspecified; R94.31 Abnormal electrocardiogram [ECG] [EKG]; M79.7 Fibromyalgia; F32.A Depression, unspecified; F90.9 Attention-deficit hyperactivity disorder, unspecified type; F11.20 Opioid dependence, uncomplicated; Z79.891 Long term (current) use of opiate analgesic; F43.10 Post-traumatic stress disorder, unspecified; R74.8 Abnormal levels of other serum enzymes; Z79.82 Long term (current) use of aspirin; Z88.5 Allergy status to narcotic agent; Z88.8 Allergy status to other drugs, medicaments and biological substances; Z79.899 Other long term (current) drug therapy
CPT/HCPCS: 36415; 71045; 71275; 80048; 80307; 81001; 81002; 82550; 82553; 83735; 84439; 84443; 84703; 85025; 85027; 87635; 93005; 96361; 96365; 96375; 96376; 99285; J0131; J2060; J3475; Q9967; S0109

== ENCOUNTER → 2023-12-15 | Outpatient (CLI) | payer OTHER ==
[~2023-12-15] MED LIST changes: +ASPI-655 PO; +ATOM80CA PO; +BUPR-597; -BUPR300T92; +CLON0.2T PO; +GABA-1490; +GABA-1490 PO; +GABA-1635 PO; -GABA600T4; -GABA600T4 PO; -GABA800T4 PO; +METH10CO PO; +NICO2LOZ MT; +RISP-105; -RISP-8; +TOPI-21 PO; -TOPI-254 PO
[2023-12-15 11:25] LABS: HEMATOCRIT 36.5 % (36.0-47.0); HEMOGLOBIN 11.6 g/dl (12.0-15.5); MEAN CORPUSCULAR HEMOGLOBIN 28.4 pg (27.0-33.0); MEAN CORPUSCULAR HGB CONC 31.8 g/dl (32.0-36.5); MEAN CORPUSCULAR VOLUME 89.2 fl (80.0-96.0); PLATELET COUNT, AUTOMATED 202 10^3/uL (150-450); RED BLOOD COUNT 4.09 10^6/uL (4.00-5.40); WHITE BLOOD COUNT 4.7 10^3/uL (4.0-10.0)
[2023-12-15 11:50] LABS: ALBUMIN 3.9 G/DL (3.2-5.2); ALKALINE PHOSPHATASE 79 U/L (46-116); ALT/SGPT 79 U/L (7.0-40); AST/SGOT 69 U/L (<34); BILIRUBIN,TOTAL 0.4 MG/DL (0.3-1.2); BLOOD UREA NITROGEN 12 MG/DL (9-23); CALCIUM LEVEL 9.2 MG/DL (8.5-10.1); CARBON DIOXIDE LEVEL 31 MMOL/L (20-31); CHLORIDE LEVEL 103 MMOL/L (98-107); CREATININE FOR GFR 0.69 MG/DL (0.55-1.30); GLOMERULAR FILTRATION RATE > 60.0 (>60); GLUCOSE, FASTING 91 MG/DL (60-100); POTASSIUM SERUM 4.3 MMOL/L (3.5-5.1); SODIUM LEVEL 138 MMOL/L (136-145); TOTAL PROTEIN 7.3 G/DL (5.7-8.2)
[2023-12-15 12:02] LABS: HCG, SERUM QUALITATIVE NEGATIVE (NEGATIVE)
[2023-12-15 12:11] LABS: HEPATITIS B SURFACE ANTIGEN NEGATIVE (NEGATIVE)
[2023-12-15 12:24] LABS: HIV 1&2 SCREEN NEGATIVE (NEGATIVE)
[2023-12-15 12:30] LABS: HEPATITIS C VIRUS ABY INDEX < 0.02 INDEX (<0.8)
[2023-12-15 12:31] LABS: HEPATITIS B CORE ANTIBODY IGM NEGATIVE (NEGATIVE)
[2023-12-15 12:55] LABS: GC DNA AMPLIFICATION NEGATIVE (NEGATIVE)
== END ==
LOC: M LAB 10:15
PROVIDERS: ATTEND Family Medicine
DX: F11.20 Opioid dependence, uncomplicated (principal)

== ENCOUNTER → 2023-12-15 | Outpatient (REF) | payer OTHER ==
[2023-12-15 13:56] LABS: BASO % 0.3 % (0.0-1.0); EOS # 0.2 10^3/uL (0.0-0.5); EOS % 3.5 % (0.0-3.0); HEMATOCRIT 39.8 % (36.0-47.0); HEMOGLOBIN 12.4 g/dl (12.0-15.5); LYMPH # 2.5 10^3/uL (1.5-5.0); LYMPH % 42.1 % (24.0-44.0); MEAN CORPUSCULAR HEMOGLOBIN 27.9 pg (27.0-33.0); MEAN CORPUSCULAR HGB CONC 31.2 g/dl (32.0-36.5); MEAN CORPUSCULAR VOLUME 89.6 fl (80.0-96.0); MONO # 0.4 10^3/uL (0.0-0.8); MONO % 7.4 % (2.0-8.0); NEUTROPHILS # 2.8 10^3/uL (1.5-8.5); NEUTROPHILS % 46.5 % (36.0-66.0); PLATELET COUNT, AUTOMATED 252 10^3/uL (150-450); RED BLOOD COUNT 4.44 10^6/uL (4.00-5.40)
[2023-12-15 14:03] LABS: ALBUMIN 4.1 G/DL (3.2-5.2); ALKALINE PHOSPHATASE 82 U/L (46-116); ALT/SGPT 84 U/L (7.0-40); AST/SGOT 70 U/L (<34); BILIRUBIN,TOTAL 0.3 MG/DL (0.3-1.2); BLOOD UREA NITROGEN 12 MG/DL (9-23); CALCIUM LEVEL 9.2 MG/DL (8.5-10.1); CARBON DIOXIDE LEVEL 29 MMOL/L (20-31); CHLORIDE LEVEL 102 MMOL/L (98-107); CHOLESTEROL LEVEL 227 MG/DL (<200); CHOLESTEROL RISK RATIO 8.02 (<5); CREATININE FOR GFR 0.67 MG/DL (0.55-1.30); GLOMERULAR FILTRATION RATE > 60.0 (>60); GLUCOSE, FASTING 93 MG/DL (60-100); HDL CHOLESTEROL 28.3 MG/DL (>40); LDL CHOLESTEROL 146.5 MG/DL (<100); MAGNESIUM LEVEL 1.9 MG/DL (1.8-2.4); NON-HDL-C 198.7 MG/DL; POTASSIUM SERUM 4.1 MMOL/L (3.5-5.1); SODIUM LEVEL 137 MMOL/L (136-145); TOTAL PROTEIN 7.5 G/DL (5.7-8.2); TRIGLYCERIDES LEVEL 261 MG/DL (<150)
[2023-12-15 14:05] LABS: THYROID STIMULATING HORMONE 3.853 uIU/ML (0.55-4.78)
[2023-12-15 14:23] LABS: HEMOGLOBIN A1c 5.6 % (4.0-6.0)
== END ==
LOC: M LAB REF 13:01
PROVIDERS: ATTEND Nurse Practitioner Family
DX: E66.01 Morbid (severe) obesity due to excess calories (principal)

== ENCOUNTER → 2023-12-28 | Outpatient (CLI) | payer OTHER ==
[2023-12-28 11:25] LABS: BASO % 0.2 % (0.0-1.0); EOS # 0.2 10^3/uL (0.0-0.5); EOS % 3.9 % (0.0-3.0); HEMATOCRIT 37.3 % (36.0-47.0); HEMOGLOBIN 11.6 g/dl (12.0-15.5); LYMPH # 1.9 10^3/uL (1.5-5.0); LYMPH % 43.5 % (24.0-44.0); MEAN CORPUSCULAR HEMOGLOBIN 27.6 pg (27.0-33.0); MEAN CORPUSCULAR HGB CONC 31.1 g/dl (32.0-36.5); MEAN CORPUSCULAR VOLUME 88.6 fl (80.0-96.0); MONO # 0.3 10^3/uL (0.0-0.8); MONO % 6.9 % (2.0-8.0); NEUTROPHILS % 45.3 % (36.0-66.0); PLATELET COUNT, AUTOMATED 232 10^3/uL (150-450); RED BLOOD COUNT 4.21 10^6/uL (4.00-5.40); WHITE BLOOD COUNT 4.3 10^3/uL (4.0-10.0)
[2023-12-28 11:45] LABS: ERYTHROCYTE SEDIMENTATION RATE 41 mm/hr (0-20)
[2023-12-28 11:46] LABS: IRON (FE) 37 UG/DL (50-170); TOTAL IRON BINDING CAPACITY 337 UG/DL (250-425)
[2023-12-28 11:47] LABS: ALBUMIN 3.7 G/DL (3.2-5.2); ALKALINE PHOSPHATASE 78 U/L (46-116); ALT/SGPT 69 U/L (7.0-40); AST/SGOT 65 U/L (<34); BILIRUBIN,TOTAL 0.3 MG/DL (0.3-1.2); BLOOD UREA NITROGEN 9 MG/DL (9-23); CALCIUM LEVEL 9.4 MG/DL (8.5-10.1); CARBON DIOXIDE LEVEL 32 MMOL/L (20-31); CHLORIDE LEVEL 105 MMOL/L (98-107); CREATININE FOR GFR 0.66 MG/DL (0.55-1.30); FERRITIN 58.2 NG/ML (7.3-270.7); FOLATE 16.19 NG/ML (>5.4); GLOMERULAR FILTRATION RATE > 60.0 (>60); GLUCOSE, FASTING 113 MG/DL (60-100); POTASSIUM SERUM 4.3 MMOL/L (3.5-5.1); SODIUM LEVEL 139 MMOL/L (136-145); TOTAL PROTEIN 7.2 G/DL (5.7-8.2)
[2023-12-28 11:48] LABS: RHEUMATOID FACTOR QUANT 7.9 IU/ML (<14); VITAMIN B12 LEVEL 908 PG/ML (211-911)
[2023-12-29 11:57] LABS: SSA SJOGRENS A 7.4 POS AI (<1.0 NEG); SSB SJOGRENS B <1.0 NEG AI (<1.0 NEG)
[2023-12-29 12:26] LABS: CYCLIC CITRULLINATED PEPTIDE < 16 UNITS (<20)
== END ==
LOC: M LAB 09:40
PROVIDERS: ATTEND Nurse Practitioner Family
DX: R53.83 Other fatigue (principal); L08.9 Local infection of the skin and subcutaneous tissue, unspecified; R10.9 Unspecified abdominal pain

== ENCOUNTER → 2024-01-27 | Outpatient (CLI) | payer OTHER | LOC: M RAD 08:35 | PROVIDERS: ATTEND Nurse Practitioner Family | DX: R10.9 Unspecified abdominal pain (principal) ==

== ENCOUNTER 2024-02-01 07:02 | Day surgery (SDC) | payer OTHER ==
[~2024-02-01] VITALS: Ht 170.2 cm; Wt 144.2 kg
[~2024-02-01 07:02] MED LIST changes: +AMPH1TAB2 PO; +CLON1TAB8 PO; +NS 250 ML IV ONE; +PANT40TA29 PO; +PROP40TA62 PO; +REXU1TAB4 PO; +propofoL 200 MG/20 ML VIAL As Ordered ONE
[2024-02-01 08:04] VITALS: TEMP 96.8
[2024-02-01 08:22] VITALS: BP 120/55; O2SAT 97
== END 2024-02-01 08:28 | disposition home or self-care (01) ==
LOC: M OPP 07:02
PROVIDERS: ATTEND Surgery
DX: K29.71 Gastritis, unspecified, with bleeding (principal); I10 Essential (primary) hypertension; K21.9 Gastro-esophageal reflux disease without esophagitis; Z79.899 Other long term (current) drug therapy; Z88.5 Allergy status to narcotic agent; Z88.8 Allergy status to other drugs, medicaments and biological substances; R56.9 Unspecified convulsions; F17.290 Nicotine dependence, other tobacco product, uncomplicated; R16.0 Hepatomegaly, not elsewhere classified

== ENCOUNTER → 2024-02-07 | Outpatient (CLI) | payer OTHER ==
[~2024-02-07] MED LIST changes: -NS 250 ML IV ONE; -propofoL 200 MG/20 ML VIAL As Ordered ONE
[2024-02-07 12:14] LABS: HEMATOCRIT 38.7 % (36.0-47.0); HEMOGLOBIN 12.4 g/dl (12.0-15.5); MEAN CORPUSCULAR HEMOGLOBIN 27.9 pg (27.0-33.0); MEAN CORPUSCULAR VOLUME 87.2 fl (80.0-96.0); PLATELET COUNT, AUTOMATED 255 10^3/uL (150-450); RED BLOOD COUNT 4.44 10^6/uL (4.00-5.40); WHITE BLOOD COUNT 7.5 10^3/uL (4.0-10.0)
[2024-02-07 12:38] LABS: ALBUMIN 4.4 G/DL (3.2-5.2); ALKALINE PHOSPHATASE 82 U/L (35-104); ALT/SGPT 68 U/L (7.0-40); AST/SGOT 55 U/L (<34); BILIRUBIN,TOTAL 0.5 MG/DL (0.3-1.2); BLOOD UREA NITROGEN 12 MG/DL (9-23); CALCIUM LEVEL 9.9 MG/DL (8.5-10.1); CARBON DIOXIDE LEVEL 32 MMOL/L (20-31); CHLORIDE LEVEL 103 MMOL/L (98-107); CREATININE FOR GFR 0.77 MG/DL (0.55-1.30); GLOMERULAR FILTRATION RATE > 60.0 (>60); GLUCOSE, FASTING 89 MG/DL (60-100); POTASSIUM SERUM 4.5 MMOL/L (3.5-5.1); SODIUM LEVEL 139 MMOL/L (136-145); TOTAL PROTEIN 8.2 G/DL (5.7-8.2)
[2024-02-07 12:51] LABS: HEPATITIS B SURFACE ANTIGEN NEGATIVE (NEGATIVE)
[2024-02-07 13:05] LABS: HIV 1&2 SCREEN NEGATIVE (NEGATIVE)
[2024-02-07 13:12] LABS: HEPATITIS C VIRUS ABY INDEX 0.03 INDEX (<0.8)
[2024-02-07 13:13] LABS: HEPATITIS B CORE ANTIBODY IGM NEGATIVE (NEGATIVE)
[2024-02-07 13:23] LABS: HCG, SERUM QUALITATIVE NEGATIVE (NEGATIVE)
== END ==
LOC: M LAB 11:36
PROVIDERS: ATTEND Family Medicine
DX: F11.20 Opioid dependence, uncomplicated (principal)

== ENCOUNTER 2024-03-14 07:06 | Day surgery (SDC) | payer OTHER ==
[~2024-03-14] VITALS: Ht 170.2 cm; Wt 144.0 kg
[~2024-03-14 07:06] MED LIST changes: +FAMO1TAB11 PO
[2024-03-14] MEDS ORDERED: propofoL 200 MG/20 ML VIAL As Ordered ONE (07:17)
[2024-03-14 08:13] VITALS: TEMP 97.4
[2024-03-14 08:30] VITALS: BP 135/77; O2SAT 94
== END 2024-03-14 08:35 | disposition home or self-care (01) ==
LOC: M OPP 07:06
PROVIDERS: ATTEND Surgery
DX: K64.0 First degree hemorrhoids (principal); K92.1 Melena; I10 Essential (primary) hypertension; K21.9 Gastro-esophageal reflux disease without esophagitis; M19.90 Unspecified osteoarthritis, unspecified site; F41.9 Anxiety disorder, unspecified; F32.A Depression, unspecified; F90.9 Attention-deficit hyperactivity disorder, unspecified type; F17.290 Nicotine dependence, other tobacco product, uncomplicated; G47.33 Obstructive sleep apnea (adult) (pediatric); Z99.89 Dependence on other enabling machines and devices; Z88.5 Allergy status to narcotic agent; Z88.8 Allergy status to other drugs, medicaments and biological substances; Z79.891 Long term (current) use of opiate analgesic; Z79.899 Other long term (current) drug therapy; Z80.0 Family history of malignant neoplasm of digestive organs

== ENCOUNTER → 2024-03-15 | Outpatient (CLI) | payer MEDICARE, OTHER ==
[2024-03-15 17:48] LABS: HCG, SERUM QUALITATIVE NEGATIVE (NEGATIVE)
[2024-03-15 17:49] LABS: PROLACTIN 11.28 NG/ML
== END ==
LOC: M PLALAB 16:27
PROVIDERS: ATTEND Nurse Practitioner Family
DX: N91.1 Secondary amenorrhea (principal)

== ENCOUNTER → 2024-04-10 | Outpatient (REF) | payer MEDICAID, OTHER ==
[2024-04-10 14:23] LABS: APPEARANCE, URINE HAZY (CLEAR); BACTERIA, URINE AUTO NEGATIVE (NEGATIVE); BILIRUBIN, URINE AUTO NEGATIVE (NEGATIVE); BLOOD, URINE BLOOD NEGATIVE (NEGATIVE); COLOR, URINE YELLOW (YELLOW); GLUCOSE, URINE (UA) AUTO NEGATIVE (NEGATIVE); KETONE, URINE AUTO NEGATIVE (NEGATIVE); LEUKOCYTE ESTERASE, URINE AUTO TRACE (NEGATIVE); NITRITE, URINE AUTO NEGATIVE (NEGATIVE); PROTEIN, URINE AUTO NEGATIVE (NEGATIVE); RBC, URINE AUTO 1 /HPF (0-3); SPECIFIC GRAVITY URINE AUTO 1.029 (1.002-1.035); SQUAMOUS EPITHELIAL CELL UR AU 1 /HPF (0-6); WBC, URINE AUTO 2 /HPF (0-3)
[2024-04-10 14:36] LABS: BASO % 0.3 % (0.0-1.0); EOS # 0.1 10^3/uL (0.0-0.5); HEMOGLOBIN 12.8 g/dl (12.0-15.5); LYMPH # 2.3 10^3/uL (1.5-5.0); LYMPH % 35.5 % (24.0-44.0); MEAN CORPUSCULAR HEMOGLOBIN 27.2 pg (27.0-33.0); MEAN CORPUSCULAR HGB CONC 31.2 g/dl (32.0-36.5); MEAN CORPUSCULAR VOLUME 87.2 fl (80.0-96.0); MONO # 0.4 10^3/uL (0.0-0.8); MONO % 6.1 % (2.0-8.0); NEUTROPHILS # 3.6 10^3/uL (1.5-8.5); NEUTROPHILS % 55.9 % (36.0-66.0); PLATELET COUNT, AUTOMATED 255 10^3/uL (150-450); WHITE BLOOD COUNT 6.4 10^3/uL (4.0-10.0)
[2024-04-10 14:54] LABS: ERYTHROCYTE SEDIMENTATION RATE 49 mm/hr (0-20)
[2024-04-10 15:00] LABS: TOTAL PROTEIN,RANDOM URINE 18.7 MG/DL (0.0-14.0)
[2024-04-10 15:03] LABS: CREATININE,RANDOM URINE 185.7 MG/DL
[2024-04-10 15:07] LABS: FERRITIN 55.3 NG/ML (7.3-270.7)
[2024-04-10 15:08] LABS: TOTAL 25(OH) VITAMIN D 18.6 NG/ML (20.0-100.0)
[2024-04-10 15:10] LABS: COMPLEMENT C3 227.2 MG/DL (84.0-160.0)
[2024-04-10 15:11] LABS: ALBUMIN 4.7 G/DL (3.2-5.2); ALKALINE PHOSPHATASE 86 U/L (35-104); ALT/SGPT 52 U/L (7.0-40); AST/SGOT 43 U/L (<34); BILIRUBIN,DIRECT 0.2 MG/DL (<0.4); BILIRUBIN,TOTAL 0.5 MG/DL (0.3-1.2); BLOOD UREA NITROGEN 18 MG/DL (9-23); CALCIUM LEVEL 9.2 MG/DL (8.5-10.1); CARBON DIOXIDE LEVEL 31 MMOL/L (20-31); CHLORIDE LEVEL 102 MMOL/L (98-107); COMPLEMENT C4 31.5 MG/DL (12-36); CREATININE FOR GFR 0.75 MG/DL (0.55-1.30); FOLATE 13.41 NG/ML (>5.4); GLOMERULAR FILTRATION RATE > 60.0 (>60); GLUCOSE, FASTING 78 MG/DL (60-100); IRON (FE) 61 UG/DL (50-170); MAGNESIUM LEVEL 2.2 MG/DL (1.8-2.4); PERCENT SATURATION 17.5 % (13.2-45.0); PHOSPHORUS LEVEL 3.4 MG/DL (2.5-4.9); POTASSIUM SERUM 4.1 MMOL/L (3.5-5.1); SODIUM LEVEL 141 MMOL/L (136-145); TOTAL IRON BINDING CAPACITY 348 UG/DL (250-425); TOTAL PROTEIN 8.3 G/DL (5.7-8.2)
== END ==
LOC: M SFHCRHEU 10:34
PROVIDERS: ATTEND Internal Medicine
DX: R76.8 Other specified abnormal immunological findings in serum (principal); R53.82 Chronic fatigue, unspecified

== ENCOUNTER → 2024-04-24 | Outpatient (CLI) | payer OTHER | LOC: M RAD 09:27 | PROVIDERS: ATTEND Internal Medicine | DX: M54.9 Dorsalgia, unspecified (principal) ==

== ENCOUNTER → 2024-05-01 | Outpatient (REF) | payer MEDICAID, OTHER ==
[2024-05-03 14:36] LABS: HPV APTIMA Detected (Not Detected)
== END ==
LOC: M SFHCWAGY 14:27
PROVIDERS: ATTEND Nurse Practitioner Family
DX: Z12.4 Encounter for screening for malignant neoplasm of cervix (principal); R87.613 High grade squamous intraepithelial lesion on cytologic smear of cervix (HGSIL)

== ENCOUNTER → 2024-05-08 | Outpatient (CLI) | payer OTHER | LOC: M WHC 13:06 | PROVIDERS: ATTEND Nurse Practitioner Family | DX: N91.1 Secondary amenorrhea (principal); N64.4 Mastodynia; N63.20 Unspecified lump in the left breast, unspecified quadrant; N63.10 Unspecified lump in the right breast, unspecified quadrant ==

== ENCOUNTER → 2024-05-23 | Outpatient (CLI) | payer OTHER | LOC: M PLAIMG 13:02 | PROVIDERS: ATTEND Internal Medicine | DX: M54.9 Dorsalgia, unspecified (principal) ==

== ENCOUNTER → 2024-05-29 | Outpatient (REF) | payer OTHER ==
[2024-05-29 15:52] LABS: ALBUMIN 3.9 G/DL (3.2-5.2); ALKALINE PHOSPHATASE 76 U/L (35-104); ALT/SGPT 33 U/L (7.0-40); AST/SGOT 28 U/L (<34); BILIRUBIN,TOTAL 0.3 MG/DL (0.3-1.2); BLOOD UREA NITROGEN 13 MG/DL (9-23); CALCIUM LEVEL 9.3 MG/DL (8.5-10.1); CARBON DIOXIDE LEVEL 32 MMOL/L (20-31); CHLORIDE LEVEL 103 MMOL/L (98-107); CHOLESTEROL LEVEL 188 MG/DL (<200); CHOLESTEROL RISK RATIO 6.39 (<5); CREATININE FOR GFR 0.65 MG/DL (0.55-1.30); GLOMERULAR FILTRATION RATE > 60.0 (>60); GLUCOSE, FASTING 107 MG/DL (60-100); HDL CHOLESTEROL 29.4 MG/DL (>40); NON-HDL-C 158.6 MG/DL; POTASSIUM SERUM 4.6 MMOL/L (3.5-5.1); SODIUM LEVEL 142 MMOL/L (136-145); TOTAL PROTEIN 7.6 G/DL (5.7-8.2); TRIGLYCERIDES LEVEL 213 MG/DL (<150)
== END ==
LOC: M LAB REF 12:35
PROVIDERS: ATTEND Nurse Practitioner Family
DX: R79.89 Other specified abnormal findings of blood chemistry (principal)

== ENCOUNTER → 2024-07-05 | Outpatient (REF) | payer MEDICAID, OTHER | LOC: M PLALAB 15:33 | PROVIDERS: ATTEND Obstetrics & Gynecology | DX: R87.613 High grade squamous intraepithelial lesion on cytologic smear of cervix (HGSIL) (principal) ==

== ENCOUNTER 2024-07-23 06:19 | Day surgery (SDC) | payer OTHER ==
[~2024-07-23] VITALS: Ht 170.2 cm; Wt 141.1 kg
[~2024-07-23 06:19] MED LIST changes: -DEPA250T32 PO; +DIVA-41 PO; +DIVA-65 PO; -DIVA500T94 PO
[2024-07-23] MEDS ORDERED: LIDOCAINE 2% 100 MG/5 ML SDV (FOR ANES.) As Ordered ONE (07:00)
[2024-07-23] MEDS ORDERED: propofoL 200 MG/20 ML VIAL As Ordered ONE (07:00)
[2024-07-23] MEDS ORDERED: fentaNYL 100 MCG/2 ML INJECTION As Ordered ONE (07:01)
[2024-07-23] MEDS ORDERED: MIDAZOLAM INJ 2 MG/2 ML VIAL As Ordered ONE (07:01)
[2024-07-23 07:09] LABS: BASO % 0.5 % (0.0-1.0); EOS # 0.2 10^3/uL (0.0-0.5); EOS % 2.8 % (0.0-3.0); HEMATOCRIT 38.8 % (36.0-47.0); HEMOGLOBIN 12.4 g/dl (12.0-15.5); LYMPH # 2.8 10^3/uL (1.5-5.0); LYMPH % 42.4 % (24.0-44.0); MEAN CORPUSCULAR HEMOGLOBIN 27.7 pg (27.0-33.0); MEAN CORPUSCULAR VOLUME 86.8 fl (80.0-96.0); MONO # 0.4 10^3/uL (0.0-0.8); MONO % 6.6 % (2.0-8.0); NEUTROPHILS # 3.1 10^3/uL (1.5-8.5); NEUTROPHILS % 47.5 % (36.0-66.0); PLATELET COUNT, AUTOMATED 266 10^3/uL (150-450); RED BLOOD COUNT 4.47 10^6/uL (4.00-5.40); WHITE BLOOD COUNT 6.5 10^3/uL (4.0-10.0)
[2024-07-23] MEDS ORDERED: KETOROLAC 30 MG/ML 1 ML VIAL As Ordered ONE (07:11)
[2024-07-23] MEDS ORDERED: ACETAMINOPHEN 1000MG/100ML IV BAG As Ordered ONE (07:11)
[2024-07-23 07:15] LABS: HCG, SERUM QUALITATIVE NEGATIVE (NEGATIVE)
[2024-07-23] MEDS ORDERED: dexmedeTOMIDine (4 MCG/ML) 200 MCG/50 ML BTL As Ordered ONE (08:00)
[2024-07-23] MEDS ORDERED: ePHEDrine SULFATE 25 MG/5 ML SYRINGE As Ordered ONE (08:32)
[2024-07-23] MEDS ORDERED: PHENYLephrine 500MCG 5ML (100MCG/ML) SYRINGE As Ordered ONE (08:32)
[2024-07-23] MEDS: [UNRECOGNIZED DRUG - OTHER] As Ordered ONE (08:48)
[2024-07-23] MEDS: BUPIVACAINE As Ordered ONE (08:48)
[2024-07-23] MEDS: IODINE STRONG SOLN 15 ML BTL As Ordered ONE (08:54)
[2024-07-23] MEDS ORDERED: MEPERIDINE 25 MG/ML 1 ML VIAL IV PRN (09:05)
[2024-07-23] MEDS ORDERED: ONDANSETRON 4MG 2ML VIAL IV PRN (09:05)
[2024-07-23] MEDS ORDERED: diphenhydrAMINE 50 MG/ML VIAL IV PRN (09:05)
[2024-07-23] MEDS ORDERED: LR 1,000 ML IV SCH (09:05)
[2024-07-23] MEDS ORDERED: METOCLOPRAMIDE INJ 10 MG/2 ML VIAL IV PRN (09:05)
[2024-07-23] MEDS ORDERED: fentaNYL 100 MCG/2 ML INJECTION IV PRN (09:05)
[2024-07-23] MEDS: ALBUTEROL SULFATE 2.5 MG/0.5 ML INH CONCENTRATE NEB SOLN NEB ONE (09:45)
[2024-07-23 10:41] VITALS: BP 132/79; TEMP 98; O2SAT 93
== END 2024-07-23 10:43 | disposition home or self-care (01) ==
LOC: M SDC 06:19
PROVIDERS: ATTEND Obstetrics & Gynecology
DX: D06.9 Carcinoma in situ of cervix, unspecified (principal); N88.8 Other specified noninflammatory disorders of cervix uteri; G47.30 Sleep apnea, unspecified; Z68.42 Body mass index [BMI] 45.0-49.9, adult; Z88.5 Allergy status to narcotic agent; Z88.8 Allergy status to other drugs, medicaments and biological substances; Z79.899 Other long term (current) drug therapy; F17.290 Nicotine dependence, other tobacco product, uncomplicated
CPT/HCPCS: 36415; 57520; 82306; 84703; 85025; 86850; 86900; 86901; 88305; 88307; J0665; J1885; J2250; J2371

== ENCOUNTER → 2024-07-23 | Outpatient (CLI) | payer OTHER ==
[~2024-07-23] MED LIST changes: +BENA25CA4 PO; -BUPR-597; +BUPR-766; +ERGO500029 PO; +IBUP-1022 PO; +OMEG10002 PO; +VITA500C24 PO
== END ==
LOC: M LAB 10:52
PROVIDERS: ATTEND Internal Medicine
DX: M35.9 Systemic involvement of connective tissue, unspecified (principal)

== ENCOUNTER 2024-11-29 09:28 | Inpatient (IN) | payer OTHER ==
[2024-11-29] VITALS (28 sets, daily range): BP systolic 91–132; BP diastolic 50–73; TEMP 101.1–102.4; O2SAT 89–100
[~2024-11-29] VITALS: Ht 177.8 cm; Wt 134.5 kg
[~2024-11-29 09:28] MED LIST changes: -ASPI-655 PO; +ASPI-737 PO; -IBUP-1022 PO
[2024-11-29] MEDS: NALOXONE 2 MG/2 ML SYRINGE IV STA (09:29)
[2024-11-29] MEDS ORDERED: ONDANSETRON 4MG 2ML VIAL As Ordered ONE (09:41)
[2024-11-29] MEDS: ONDANSETRON 4MG 2ML VIAL IV ONE (09:43)
[2024-11-29 09:50] LABS: VENOUS BASE EXCESS -0.5 (-2.0-2.0); VENOUS HCO3 27.9 MMOL/L (23.0-27.0); VENOUS O2 SATURATION 69.3 % (60.0-80.0); VENOUS PARTIAL PRESSURE CO2 63.7 mmHg (38.0-50.0); VENOUS PARTIAL PRESSURE O2 41.4 mmHg (30.0-50.0); VENOUS PH 7.260 UNITS (7.330-7.430); VENOUS STANDARD HCO3 23.4 MMOL/L; VENOUS TOTAL CO2 29.9 MMOL/L (24.0-28.0)
[2024-11-29] MEDS: ETOMIDATE 20 MG/10 ML VIAL IV STA (09:51)
[2024-11-29] MEDS: SUCCINYLCHOLINE INJ 200MG/10ML VIAL IV STA (09:51)
[2024-11-29 09:56] LABS: BASO # 0.0 10^3/uL (0.0-0.2); BASO % 0.2 % (0.0-1.0); EOS # 0.0 10^3/uL (0.0-0.5); EOS % 0.0 % (0.0-3.0); LYMPH # 1.2 10^3/uL (1.5-5.0); LYMPH % 14.1 % (24.0-44.0); MONO # 0.4 10^3/uL (0.0-0.8); MONO % 4.7 % (2.0-8.0); NEUTROPHILS # 6.7 10^3/uL (1.5-8.5); NEUTROPHILS % 80.6 % (36.0-66.0); PLATELET COUNT, AUTOMATED 292 10^3/uL (150-450)
[2024-11-29] MEDS ORDERED: MIDAZOLAM INJ 2 MG/2 ML VIAL As Ordered ONE (10:07)
[2024-11-29] MEDS ORDERED: PROPOFOL 1,000 MG/100 ML VIAL As Ordered ONE (10:07)
[2024-11-29] MEDS ORDERED: PIPERACILLIN/TAZOBACTAM SOD 4.5 GM in DEXTROSE 5% (D5W) ADV/MINI-BAG 50 ML IV ONE (10:10)
[2024-11-29] MEDS: MIDAZOLAM INJ 2 MG/2 ML VIAL IV ONE ×2 (10:15→11:28)
[2024-11-29 10:31] LABS: SALICYLATE LEVEL < 3.0 MG/DL (<30)
[2024-11-29 10:33] LABS: ETHYL ALCOHOL (ETHANOL) < 0.003 % (0.000-0.010)
[2024-11-29 10:35] LABS: OSMOLALITY SERUM 306 MOSM/KG (275-295)
[2024-11-29 10:45] LABS: ABG BASE EXCESS -2.5 (-2.0-2.0); ABG HCO3 25.3 MMOL/L (22.0-26.0); ABG O2 SATURATION 87.5 % (95.0-99.0); ABG PARTIAL PRESSURE CO2 57.1 mmHg (35.0-45.0); ABG PARTIAL PRESSURE O2 61.9 mmHg (75.0-100.0); ABG STANDARD HCO3 22.2 MMOL/L. (22.0-26.0); ABG TOTAL CO2 27.1 MMOL/L (22.0-29.0); ABG pH (ARTERIAL) 7.265 UNITS (7.350-7.450)
[2024-11-29 10:50] LABS: HCG, SERUM QUALITATIVE NEGATIVE (NEGATIVE)
[2024-11-29] MEDS ORDERED: PIPERACILLIN/TAZOBACTAM SOD 3.375 GM in DEXTROSE 5% (D5W) ADV/MINI-BAG 50 ML IV SCH (10:50)
[2024-11-29 10:58] LABS: ALT/SGPT 4391 U/L (7.0-40); AST/SGOT > 6000 U/L (<34); CALCIUM LEVEL 9.4 MG/DL (8.5-10.1); CARBON DIOXIDE LEVEL 30 MMOL/L (20-31); CHLORIDE LEVEL 99 MMOL/L (98-107); CPK CREATINE PHOSPHOKINASE 15497 U/L (34-145); CREATININE FOR GFR 2.02 MG/DL (0.55-1.30); GLOMERULAR FILTRATION RATE 32.4 (>60); POTASSIUM SERUM 4.9 MMOL/L (3.5-5.1); SODIUM LEVEL 141 MMOL/L (136-145)
[2024-11-29] MEDS ORDERED: med rec comment (11:05)
[2024-11-29] MEDS: VECURONIUM BROMIDE 10MG VIAL IV STA (11:08)
[2024-11-29] MEDS ORDERED: CLON0.5T2 PO (11:09)
[2024-11-29] MEDS ORDERED: ADDE20TA PO (11:09)
[2024-11-29] MEDS ORDERED: ATOR1TAB21 PO (11:09)
[2024-11-29] MEDS ORDERED: ADDE30TA PO (11:09)
[2024-11-29] MEDS ORDERED: HOME MED LIST COMPLETE! XX SCH (11:10)
[2024-11-29 11:17] LABS: BARBITURATES URINE NEGATIVE (NEGATIVE); BENZODIAZEPINES URINE NEGATIVE (NEGATIVE); CANNABINOIDS URINE NEGATIVE (NEGATIVE); COCAINE METABOLITE URINE NEGATIVE (NEGATIVE); OPIATES URINE NEGATIVE (NEGATIVE); PHENCYCLIDINE URINE NEGATIVE (NEGATIVE)
[2024-11-29 11:18] LABS: AMPHETAMINES LEVEL URINE POSITIVE (NEGATIVE); METHADONE URINE POSITIVE (NEGATIVE)
[2024-11-29] MEDS: MIDAZOLAM INJ 2 MG/2 ML VIAL IV PRN (11:21)
[2024-11-29] MEDS ORDERED: NALOXONE 2 MG/2 ML SYRINGE As Ordered ONE (11:47)
[2024-11-29] MEDS ORDERED: GLUCAGON INJ 1 MG VIAL SC PRN (12:00)
[2024-11-29] MEDS: INSULIN LISPRO (NovoLOG) PER UNIT SC SCH (12:00)
[2024-11-29] MEDS ORDERED: GLUCOSE 4 GM CHEW PO PRN (12:00)
[2024-11-29] MEDS ORDERED: DEXTROSE 50% 50 ML SYRINGE IV PRN (12:00)
[2024-11-29] MEDS ORDERED: VANCOMYCIN HCL 1,000 MG, VIAL MATE ADAPTER 1 EACH in NS 250 ML IV SCH (12:05)
[2024-11-29 12:09] LABS: PLATELET COUNT, AUTOMATED 290 10^3/uL (150-450)
[2024-11-29] MEDS: NS (Normal Saline) 0.9% 1,000 ML IV ONE ×2 (12:44→15:38)
[2024-11-29] MEDS: LIDOCAINE 2% 5 ML JELLY UROJET TOP ONE (13:02)
[2024-11-29] MEDS: ACETYLCYSTEINE 15,000 MG in D5W 250 ML IV ONE (13:47)
[2024-11-29] MEDS: PIPERACILLIN/TAZOBACTAM SOD 4.5 GM in DEXTROSE 5% (D5W) ADV/MINI-BAG 50 ML IV SCH (13:47)
[2024-11-29] MEDS: IPRATROPIUM 0.5 MG/ALBUTEROL 2.5 MG INH SOL UD 3 ML NEB SCH (13:48)
[2024-11-29 13:56] LABS: HIV 1&2 SCREEN NEGATIVE (NEGATIVE)
[2024-11-29 14:04] LABS: HEPATITIS C VIRUS ABY INDEX 0.02 INDEX (<0.8)
[2024-11-29] MEDS: MIDAZOLAM INJ 2 MG/2 ML VIAL IV STA (14:29)
[2024-11-29] MEDS: PANTOPRAZOLE 40MG VIAL IV SCH (14:34)
[2024-11-29] MEDS: ENOXAPARIN 150 MG/ML SYRINGE SC SCH (14:36)
[2024-11-29] MEDS: NS (Normal Saline) 0.9% 1,000 ML IV SCH (14:55)
[2024-11-29 15:07] LABS: GC DNA AMPLIFICATION NEGATIVE (NEGATIVE)
[2024-11-29 15:18] LABS: ABG BASE EXCESS -4.7 (-2.0-2.0); ABG HCO3 23.3 MMOL/L (22.0-26.0); ABG O2 SATURATION 94.4 % (95.0-99.0); ABG PARTIAL PRESSURE CO2 56.5 mmHg (35.0-45.0); ABG PARTIAL PRESSURE O2 84.1 mmHg (75.0-100.0); ABG STANDARD HCO3 20.6 MMOL/L. (22.0-26.0); ABG TOTAL CO2 25.1 MMOL/L (22.0-29.0)
[2024-11-29 15:19] LABS: ABG pH (ARTERIAL) 7.234 UNITS (7.350-7.450)
[2024-11-29] MEDS: ACETYLCYSTEINE 5,000 MG in D5W 500 ML IV ONE (15:38)
[2024-11-29] MEDS: VANCOMYCIN HCL 1,000 MG, VIAL MATE ADAPTER 1 EACH in NS 250 ML IV ONE (15:52)
[2024-11-29 17:12] LABS: ALT/SGPT 2291.0 U/L (7.0-40); AST/SGOT 3040.0 U/L (<34); CALCIUM LEVEL 5.1 MG/DL (8.5-10.1); CARBON DIOXIDE LEVEL 21.0 MMOL/L (20-31); CHLORIDE LEVEL 115.0 MMOL/L (98-107); CHOLESTEROL LEVEL 70.0 MG/DL (<200); CPK CREATINE PHOSPHOKINASE 7471.0 U/L (34-145); CREATININE FOR GFR 1.61 MG/DL (0.55-1.30); GLOMERULAR FILTRATION RATE 42.6 (>60); LDH LACTATE DEHYDROGENASE 2617.0 U/L (120-246); PHOSPHORUS LEVEL 1.7 MG/DL (2.5-4.9); POTASSIUM SERUM 2.5 MMOL/L (3.5-5.1); SODIUM LEVEL 150.0 MMOL/L (136-145); TRIGLYCERIDES LEVEL 93.0 MG/DL (<150)
[2024-11-29 18:52] LABS: ALT/SGPT 3234.0 U/L (7.0-40); AST/SGOT 4258.0 U/L (<34); CALCIUM LEVEL 8.0 MG/DL (8.5-10.1); CARBON DIOXIDE LEVEL 26.0 MMOL/L (20-31); CHLORIDE LEVEL 103.0 MMOL/L (98-107); CHOLESTEROL LEVEL 106.0 MG/DL (<200); CPK CREATINE PHOSPHOKINASE 10345.0 U/L (34-145); CREATININE FOR GFR 2.37 MG/DL (0.55-1.30); GLOMERULAR FILTRATION RATE 26.8 (>60); LDH LACTATE DEHYDROGENASE 3408.0 U/L (120-246); PHOSPHORUS LEVEL 2.0 MG/DL (2.5-4.9); POTASSIUM SERUM 4.1 MMOL/L (3.5-5.1); SODIUM LEVEL 145.0 MMOL/L (136-145); TRIGLYCERIDES LEVEL 150.0 MG/DL (<150)
[2024-11-29] MEDS: ACETYLCYSTEINE 10,000 MG in D5W 1,000 ML IV ONE (20:01)
[2024-11-29] MEDS: MIDAZOLAM 100MG/100ML-0.9%NACL 100 MG in IV 1 EA IV SCH (20:57)
[2024-11-29] MEDS ORDERED: ENOXAPARIN 40 MG/0.4 ML SYRINGE (J1650 PER 10MG) SC SCH (21:00)
[2024-11-29] MEDS: VANCOMYCIN HCL 1,000 MG, VIAL MATE ADAPTER 1 EACH in NS 250 ML IV SCH (22:01)
[2024-11-30] VITALS (66 sets, daily range): BP systolic 87–146; BP diastolic 49–76; TEMP 98.2–100.8; O2SAT 91–100
[2024-11-30 00:01] LABS: ABG BASE EXCESS -4.9 (-2.0-2.0); ABG HCO3 21.9 MMOL/L (22.0-26.0); ABG O2 SATURATION 98.6 % (95.0-99.0); ABG PARTIAL PRESSURE CO2 48.0 mmHg (35.0-45.0); ABG PARTIAL PRESSURE O2 170.9 mmHg (75.0-100.0); ABG STANDARD HCO3 20.5 MMOL/L. (22.0-26.0); ABG TOTAL CO2 23.4 MMOL/L (22.0-29.0); ABG pH (ARTERIAL) 7.278 UNITS (7.350-7.450)
[2024-11-30 03:40] LABS: ALT/SGPT 2663.0 U/L (7.0-40); AST/SGOT 2976.0 U/L (<34)
[2024-11-30 05:59] LABS: ABG BASE EXCESS -4.6 (-2.0-2.0); ABG HCO3 22.1 MMOL/L (22.0-26.0); ABG O2 SATURATION 97.9 % (95.0-99.0); ABG PARTIAL PRESSURE CO2 47.9 mmHg (35.0-45.0); ABG PARTIAL PRESSURE O2 129.1 mmHg (75.0-100.0); ABG STANDARD HCO3 20.7 MMOL/L. (22.0-26.0); ABG TOTAL CO2 23.6 MMOL/L (22.0-29.0); ABG pH (ARTERIAL) 7.282 UNITS (7.350-7.450)
[2024-11-30 07:20] LABS: PLATELET COUNT, AUTOMATED 193 10^3/uL (150-450)
[2024-11-30 07:28] LABS: VANCOMYCIN LEVEL TROUGH 21.9 UG/ML (10.0-20.0)
[2024-11-30 08:01] LABS: ALT/SGPT 2446.0 U/L (7.0-40); AST/SGOT 2281.0 U/L (<34); CALCIUM LEVEL 8.0 MG/DL (8.5-10.1); CARBON DIOXIDE LEVEL 23.0 MMOL/L (20-31); CHLORIDE LEVEL 100.0 MMOL/L (98-107); CREATININE FOR GFR 3.4 MG/DL (0.55-1.30); GLOMERULAR FILTRATION RATE 17.4 (>60); POTASSIUM SERUM 4.5 MMOL/L (3.5-5.1); SODIUM LEVEL 140.0 MMOL/L (136-145)
[2024-11-30] MEDS ORDERED: ENOXAPARIN 40 MG/0.4 ML SYRINGE (J1650 PER 10MG) SC SCH (09:00)
[2024-11-30 09:47] LABS: CPK CREATINE PHOSPHOKINASE 6108.0 U/L (34-145)
[2024-11-30] MEDS: HEPARIN SOD 5000 UNITS/ML 1 ML VIAL/SYRINGE SQ SCH (14:23)
[2024-11-30] MEDS: PIPERACILLIN/TAZOBACTAM SOD 4.5 GM in DEXTROSE 5% (D5W) ADV/MINI-BAG 50 ML IV SCH (18:02)
[2024-12-01] VITALS (31 sets, daily range): BP systolic 100–160; BP diastolic 50–91; TEMP 97.5–99.5; O2SAT 90–97
[2024-12-01 05:00] LABS: PLATELET COUNT, AUTOMATED 157 10^3/uL (150-450)
[2024-12-01 05:21] LABS: VANCOMYCIN RANDOM 18.5 UG/ML
[2024-12-01 05:37] LABS: ALT/SGPT 1651.0 U/L (7.0-40); AST/SGOT 944.0 U/L (<34); CALCIUM LEVEL 8.5 MG/DL (8.5-10.1); CARBON DIOXIDE LEVEL 22.0 MMOL/L (20-31); CHLORIDE LEVEL 101.0 MMOL/L (98-107); CREATININE FOR GFR 4.9 MG/DL (0.55-1.30); GLOMERULAR FILTRATION RATE 11.2 (>60); POTASSIUM SERUM 4.3 MMOL/L (3.5-5.1); SODIUM LEVEL 140.0 MMOL/L (136-145)
[2024-12-01 06:18] LABS: ABG BASE EXCESS -5.2 (-2.0-2.0); ABG HCO3 21.1 MMOL/L (22.0-26.0); ABG O2 SATURATION 98.2 % (95.0-99.0); ABG PARTIAL PRESSURE CO2 44.3 mmHg (35.0-45.0); ABG PARTIAL PRESSURE O2 124.2 mmHg (75.0-100.0); ABG STANDARD HCO3 20.2 MMOL/L. (22.0-26.0); ABG TOTAL CO2 22.4 MMOL/L (22.0-29.0); ABG pH (ARTERIAL) 7.295 UNITS (7.350-7.450)
[2024-12-01] MEDS ORDERED: VANCOMYCIN INTERMITTENT/PULSE DOSING BY CLINICAL PHARMACIST PER DOSING PROTOCOL XX SCH (07:05)
[2024-12-01] MEDS ORDERED: VANCOMYCIN HCL 1,000 MG, VIAL MATE ADAPTER 1 EACH in NS 250 ML IV ONE (09:00)
[2024-12-01] MEDS ORDERED: IPRATROPIUM 0.5 MG/ALBUTEROL 2.5 MG INH SOL UD 3 ML NEB PRN (09:00)
[2024-12-01] MEDS: LR 1,000 ML IV SCH (09:49)
[2024-12-01] MEDS ORDERED: FUROSEMIDE 40 MG/4 ML VIAL IV ONE (10:00)
[2024-12-01] MEDS: FUROSEMIDE 100 MG/10 ML VIAL IV ONE (10:13)
[2024-12-01] MEDS: FUROSEMIDE 100 MG/10 ML VIAL IV SCH (16:18)
[2024-12-02] VITALS (26 sets, daily range): BP systolic 122–164; BP diastolic 61–92; TEMP 98.2–99.5; O2SAT 89–100
[2024-12-02 04:31] LABS: PLATELET COUNT, AUTOMATED 191 10^3/uL (150-450)
[2024-12-02 04:56] LABS: VANCOMYCIN RANDOM 16.9 UG/ML
[2024-12-02 05:22] LABS: ALT/SGPT 1124.0 U/L (7.0-40); AST/SGOT 468.0 U/L (<34); CALCIUM LEVEL 9.3 MG/DL (8.5-10.1); CARBON DIOXIDE LEVEL 21.0 MMOL/L (20-31); CHLORIDE LEVEL 101.0 MMOL/L (98-107); CPK CREATINE PHOSPHOKINASE 1137.0 U/L (34-145); CREATININE FOR GFR 6.24 MG/DL (0.55-1.30); GLOMERULAR FILTRATION RATE 8.4 (>60); MAGNESIUM LEVEL 2.2 MG/DL (1.8-2.4); POTASSIUM SERUM 4.2 MMOL/L (3.5-5.1); SODIUM LEVEL 142.0 MMOL/L (136-145)
[2024-12-02 05:55] LABS: ABG BASE EXCESS -5.8 (-2.0-2.0); ABG HCO3 19.8 MMOL/L (22.0-26.0); ABG O2 SATURATION 98.2 % (95.0-99.0); ABG PARTIAL PRESSURE CO2 39.4 mmHg (35.0-45.0); ABG PARTIAL PRESSURE O2 114.9 mmHg (75.0-100.0); ABG STANDARD HCO3 19.6 MMOL/L. (22.0-26.0); ABG TOTAL CO2 21.0 MMOL/L (22.0-29.0); ABG pH (ARTERIAL) 7.319 UNITS (7.350-7.450)
[2024-12-02 09:02] LABS: ABG BASE EXCESS -5.3 (-2.0-2.0); ABG HCO3 20.6 MMOL/L (22.0-26.0); ABG TOTAL CO2 21.8 MMOL/L (22.0-29.0)
[2024-12-02 09:03] LABS: ABG O2 SATURATION 97.9 % (95.0-99.0); ABG PARTIAL PRESSURE CO2 41.6 mmHg (35.0-45.0); ABG PARTIAL PRESSURE O2 106.5 mmHg (75.0-100.0); ABG STANDARD HCO3 20.1 MMOL/L. (22.0-26.0); ABG pH (ARTERIAL) 7.312 UNITS (7.350-7.450)
[2024-12-02] MEDS: CHLORASEPTIC SPRAY MT PRN (13:00)
[2024-12-02] MEDS: ALBUTEROL SULFATE 2.5 MG/0.5 ML INH CONCENTRATE NEB SOLN NEB ONE (15:10)
[2024-12-02] MEDS: SODIUM CHLORIDE HYPERTONIC 3% 4ML NEB SOL INH ONE (15:10)
[2024-12-02 16:26] LABS: ABG BASE EXCESS -6.2 (-2.0-2.0); ABG HCO3 20.3 MMOL/L (22.0-26.0); ABG O2 SATURATION 92.7 % (95.0-99.0); ABG PARTIAL PRESSURE CO2 44.9 mmHg (35.0-45.0); ABG PARTIAL PRESSURE O2 71.0 mmHg (75.0-100.0); ABG STANDARD HCO3 19.3 MMOL/L. (22.0-26.0); ABG TOTAL CO2 21.7 MMOL/L (22.0-29.0); ABG pH (ARTERIAL) 7.274 UNITS (7.350-7.450)
[2024-12-02 16:48] LABS: CALCIUM LEVEL 9.5 MG/DL (8.5-10.1); CARBON DIOXIDE LEVEL 21 MMOL/L (20-31); CHLORIDE LEVEL 100 MMOL/L (98-107); CREATININE FOR GFR 6.88 MG/DL (0.55-1.30); GLOMERULAR FILTRATION RATE 7.5 (>60); PHOSPHORUS LEVEL 5.2 MG/DL (2.5-4.9); POTASSIUM SERUM 4.5 MMOL/L (3.5-5.1); SODIUM LEVEL 143 MMOL/L (136-145)
[2024-12-02] MEDS ORDERED: HEPARIN 1,000 UNITS/ML 10 ML VIAL (FOR RADIOLOGY & DIALYSIS ONLY) IV PRN (16:50)
[2024-12-02] MEDS ORDERED: SODIUM CHLORIDE 0.9% 1000 ML IV PRN (16:50)
[2024-12-02] MEDS: HEPARIN 1,000 UNITS/ML 10 ML VIAL (FOR RADIOLOGY & DIALYSIS ONLY) XX SCH (17:00)
[2024-12-02] MEDS: HEPARIN 1,000 UNITS/ML 10 ML VIAL (FOR RADIOLOGY & DIALYSIS ONLY) IV PRN (17:00)
[2024-12-02 18:13] LABS: HEPATITIS B SURFACE ANTIBODY NEGATIVE (POSITIVE)
[2024-12-02] MEDS ORDERED: SODIUM CHLORIDE HYPERTONIC 3% 4ML NEB SOL INH PRN (18:20)
[2024-12-02] MEDS ORDERED: ALBUTEROL SULFATE 2.5 MG/0.5 ML INH CONCENTRATE NEB SOLN NEB PRN (18:20)
[2024-12-02 18:45] LABS: HEPATITIS C VIRUS ABY INDEX < 0.02 INDEX (<0.8)
[2024-12-02] MEDS: PIPERACILLIN/TAZOBACTAM SOD 4.5 GM in DEXTROSE 5% (D5W) ADV/MINI-BAG 50 ML IV SCH (22:48)
[2024-12-03] VITALS (18 sets, daily range): BP systolic 113–139; BP diastolic 56–77; TEMP 97.1–99; O2SAT 89–95
[2024-12-03 05:47] LABS: PLATELET COUNT, AUTOMATED 211 10^3/uL (150-450)
[2024-12-03 05:48] LABS: ABG BASE EXCESS -3.1 (-2.0-2.0); ABG HCO3 21.7 MMOL/L (22.0-26.0); ABG O2 SATURATION 97.3 % (95.0-99.0); ABG PARTIAL PRESSURE CO2 37.9 mmHg (35.0-45.0); ABG PARTIAL PRESSURE O2 96.0 mmHg (75.0-100.0); ABG STANDARD HCO3 21.9 MMOL/L. (22.0-26.0); ABG TOTAL CO2 22.9 MMOL/L (22.0-29.0); ABG pH (ARTERIAL) 7.376 UNITS (7.350-7.450)
[2024-12-03] MEDS ORDERED: HEPARIN 1,000 UNITS/ML 10 ML VIAL (FOR RADIOLOGY & DIALYSIS ONLY) XX SCH (06:00)
[2024-12-03] MEDS ORDERED: HEPARIN 1,000 UNITS/ML 10 ML VIAL (FOR RADIOLOGY & DIALYSIS ONLY) IV PRN (06:00)
[2024-12-03] MEDS ORDERED: SODIUM CHLORIDE 0.9% 1000 ML IV PRN (06:00)
[2024-12-03 06:19] LABS: ALT/SGPT 808.0 U/L (7.0-40); AST/SGOT 259.0 U/L (<34); CALCIUM LEVEL 9.7 MG/DL (8.5-10.1); CARBON DIOXIDE LEVEL 22.0 MMOL/L (20-31); CHLORIDE LEVEL 102.0 MMOL/L (98-107); CPK CREATINE PHOSPHOKINASE 1093.0 U/L (34-145); CREATININE FOR GFR 5.44 MG/DL (0.55-1.30); GLOMERULAR FILTRATION RATE 9.9 (>60); MAGNESIUM LEVEL 2.4 MG/DL (1.8-2.4); POTASSIUM SERUM 4.8 MMOL/L (3.5-5.1); SODIUM LEVEL 141.0 MMOL/L (136-145)
[2024-12-03] MEDS: ALBUTEROL SULFATE 2.5 MG/0.5 ML INH CONCENTRATE NEB SOLN NEB SCH (11:42)
[2024-12-03] MEDS: SODIUM CHLORIDE HYPERTONIC 3% 4ML NEB SOL INH SCH (11:42)
[2024-12-03] MEDS ORDERED: HYDROCORTISONE 100 MG/2 ML VIAL IV SCH ×2 (16:00→17:00)
[2024-12-04] VITALS (9 sets, daily range): BP systolic 104–150; BP diastolic 55–74; TEMP 97.3–98.6; O2SAT 92–95
[2024-12-04 05:44] LABS: PLATELET COUNT, AUTOMATED 259 10^3/uL (150-450)
[2024-12-04 06:25] LABS: ALT/SGPT 651.0 U/L (7.0-40); AST/SGOT 183.0 U/L (<34); CALCIUM LEVEL 9.6 MG/DL (8.5-10.1); CARBON DIOXIDE LEVEL 24.0 MMOL/L (20-31); CHLORIDE LEVEL 101.0 MMOL/L (98-107); CPK CREATINE PHOSPHOKINASE 1389.0 U/L (34-145); CREATININE FOR GFR 4.63 MG/DL (0.55-1.30); GLOMERULAR FILTRATION RATE 12.0 (>60); MAGNESIUM LEVEL 2.2 MG/DL (1.8-2.4); POTASSIUM SERUM 4.3 MMOL/L (3.5-5.1); SODIUM LEVEL 140.0 MMOL/L (136-145)
[2024-12-04] MEDS: ALBUTEROL SULFATE 2.5 MG/0.5 ML INH CONCENTRATE NEB SOLN NEB SCH (07:27)
[2024-12-04] MEDS: SODIUM CHLORIDE HYPERTONIC 3% 4ML NEB SOL INH SCH (07:27)
[2024-12-04] MEDS ORDERED: CHLORASEPTIC SPRAY MT PRN (07:30)
[2024-12-04] MEDS: SENNA 8.6 MG TAB PO SCH (08:55)
[2024-12-04] MEDS: LACTULOSE 20 GM/30 ML SYRUP UDC PO SCH (08:55)
[2024-12-05 00:15] VITALS: BP 138/70; TEMP 97.8; O2SAT 96
[2024-12-05 06:04] LABS: PLATELET COUNT, AUTOMATED 234 10^3/uL (150-450)
[2024-12-05 06:27] LABS: ALT/SGPT 463.0 U/L (7.0-40); AST/SGOT 111.0 U/L (<34); CALCIUM LEVEL 9.0 MG/DL (8.5-10.1); CARBON DIOXIDE LEVEL 22.0 MMOL/L (20-31); CHLORIDE LEVEL 100.0 MMOL/L (98-107); CREATININE FOR GFR 5.86 MG/DL (0.55-1.30); GLOMERULAR FILTRATION RATE 9.0 (>60); MAGNESIUM LEVEL 2.2 MG/DL (1.8-2.4); POTASSIUM SERUM 3.7 MMOL/L (3.5-5.1); SODIUM LEVEL 138.0 MMOL/L (136-145)
[2024-12-05] MEDS ORDERED: HEPARIN 1,000 UNITS/ML 10 ML VIAL (FOR RADIOLOGY & DIALYSIS ONLY) IV PRN (07:15)
[2024-12-05] MEDS ORDERED: SODIUM CHLORIDE 0.9% 1000 ML IV PRN (07:15)
[2024-12-05 07:47] VITALS: BP 145/77; TEMP 97.4; O2SAT 95
[2024-12-05] MEDS: ESCITALOPRAM OXALATE 10 MG TABLET PO SCH (07:52)
[2024-12-05] MEDS: ACETAMINOPHEN 325 MG TAB PO PRN (07:53)
[2024-12-05] MEDS ORDERED: METHADONE 10 MG TAB PO SCH (09:00)
[2024-12-05] MEDS ORDERED: ALBUTEROL SULFATE 2.5 MG/0.5 ML INH CONCENTRATE NEB SOLN NEB PRN (09:25)
[2024-12-05] MEDS ORDERED: SODIUM CHLORIDE HYPERTONIC 3% 4ML NEB SOL INH PRN (09:25)
[2024-12-05 11:23] VITALS: BP 146/72; TEMP 98; O2SAT 91
[2024-12-05] MEDS: METHADONE 10 MG TAB PO SCH (13:00)
[2024-12-05] MEDS: HEPARIN 1,000 UNITS/ML 10 ML VIAL (FOR RADIOLOGY & DIALYSIS ONLY) XX SCH (13:17)
[2024-12-05 16:41] VITALS: BP 156/83; TEMP 98; O2SAT 93
[2024-12-05 20:00] VITALS: BP 149/83; TEMP 96.9; O2SAT 93
[2024-12-06] VITALS: BP 169/77; TEMP 98.4; O2SAT 94
[2024-12-06 04:00] VITALS: BP 150/88; TEMP 98.1; O2SAT 95
[2024-12-06 05:11] LABS: PLATELET COUNT, AUTOMATED 208 10^3/uL (150-450)
[2024-12-06 05:43] LABS: MAGNESIUM LEVEL 1.7 MG/DL (1.8-2.4)
[2024-12-06 06:11] LABS: CALCIUM LEVEL 8.7 MG/DL (8.5-10.1); CARBON DIOXIDE LEVEL 23.0 MMOL/L (20-31); CHLORIDE LEVEL 104.0 MMOL/L (98-107); CREATININE FOR GFR 3.94 MG/DL (0.55-1.30); GLOMERULAR FILTRATION RATE 14.5 (>60); PHOSPHORUS LEVEL 4.0 MG/DL (2.5-4.9); POTASSIUM SERUM 3.5 MMOL/L (3.5-5.1); SODIUM LEVEL 140.0 MMOL/L (136-145)
[2024-12-06 07:34] VITALS: BP 163/83; TEMP 98; O2SAT 93
[2024-12-06 07:56] LABS: ALT/SGPT 362.0 U/L (7.0-40); AST/SGOT 69.0 U/L (<34)
[2024-12-06] MEDS: predniSONE 20 MG TAB PO SCH (09:07)
[2024-12-06] MEDS: MAGNESIUM OXIDE 400 MG TAB PO SCH (09:07)
[2024-12-06] MEDS: MAG SULF 1GM/100ML (MAG RUN) 1 GM in IV 1 EA IV SCH (11:51)
[2024-12-06 16:24] VITALS: BP 166/92; TEMP 97.9; O2SAT 95
[2024-12-06 20:00] VITALS: BP 157/77; TEMP 97.3; O2SAT 97
[2024-12-07 04:00] VITALS: BP_SYST 177; BP_SYST 178; BP_DIAS 103; BP_DIAS 88; TEMP 97.1; O2SAT 98
[2024-12-07 04:03] VITALS: BP 178/88
[2024-12-07 04:48] VITALS: BP 145/85; TEMP 97.9; O2SAT 97
[2024-12-07 07:18] LABS: PLATELET COUNT, AUTOMATED 217 10^3/uL (150-450)
[2024-12-07 08:01] LABS: ALT/SGPT 292.0 U/L (7.0-40); AST/SGOT 51.0 U/L (<34); CALCIUM LEVEL 8.4 MG/DL (8.5-10.1); CARBON DIOXIDE LEVEL 22.0 MMOL/L (20-31); CHLORIDE LEVEL 105.0 MMOL/L (98-107); CREATININE FOR GFR 4.93 MG/DL (0.55-1.30); GLOMERULAR FILTRATION RATE 11.1 (>60); MAGNESIUM LEVEL 2.2 MG/DL (1.8-2.4); POTASSIUM SERUM 2.9 MMOL/L (3.5-5.1); SODIUM LEVEL 143.0 MMOL/L (136-145)
[2024-12-07] MEDS ORDERED: HEPARIN 1,000 UNITS/ML 10 ML VIAL (FOR RADIOLOGY & DIALYSIS ONLY) IV PRN (08:05)
[2024-12-07] MEDS ORDERED: SODIUM CHLORIDE 0.9% 1000 ML IV PRN (08:05)
[2024-12-07] MEDS: POTASSIUM CHLORIDE 10MEQ SR TABLET PO ONE (08:18)
[2024-12-07 08:57] VITALS: BP 150/90; TEMP 98.1; O2SAT 95
[2024-12-07 12:01] VITALS: BP 140/87; TEMP 97.7; O2SAT 95
[2024-12-07] MEDS: HEPARIN 1,000 UNITS/ML 10 ML VIAL (FOR RADIOLOGY & DIALYSIS ONLY) XX SCH (14:35)
[2024-12-07] MEDS: DARBEPOETIN 100 MCG/0.5 ML *DIALYSIS* SYRINGE IV SCH (14:59)
[2024-12-07 21:04] VITALS: BP 170/91; TEMP 97.7; O2SAT 99
[2024-12-08 03:55] VITALS: BP 151/83; TEMP 97.3; O2SAT 96
[2024-12-08 09:16] LABS: BASO # 0.0 10^3/uL (0.0-0.2); BASO % 0.3 % (0.0-1.0); EOS # 0.3 10^3/uL (0.0-0.5); EOS % 1.7 % (0.0-3.0); LYMPH # 3.6 10^3/uL (1.5-5.0); LYMPH % 24.7 % (24.0-44.0); MONO # 0.6 10^3/uL (0.0-0.8); MONO % 4.4 % (2.0-8.0); NEUTROPHILS # 9.4 10^3/uL (1.5-8.5); NEUTROPHILS % 64.0 % (36.0-66.0); PLATELET COUNT, AUTOMATED 256 10^3/uL (150-450)
[2024-12-08 09:26] LABS: CALCIUM LEVEL 8.8 MG/DL (8.5-10.1); CARBON DIOXIDE LEVEL 22.0 MMOL/L (20-31); CHLORIDE LEVEL 107.0 MMOL/L (98-107); CREATININE FOR GFR 3.3 MG/DL (0.55-1.30); GLOMERULAR FILTRATION RATE 18.0 (>60); MAGNESIUM LEVEL 1.8 MG/DL (1.8-2.4); POTASSIUM SERUM 3.2 MMOL/L (3.5-5.1); SODIUM LEVEL 140.0 MMOL/L (136-145)
[2024-12-08 12:00] VITALS: BP 166/107; TEMP 97; O2SAT 95
[2024-12-08] MEDS: POTASSIUM CHLORIDE 10MEQ SR TABLET PO ONE (13:00)
[2024-12-08] MEDS: ALBUTEROL SULFATE 2.5 MG/0.5 ML INH CONCENTRATE NEB SOLN NEB SCH (15:53)
[2024-12-08] MEDS: SODIUM CHLORIDE HYPERTONIC 3% 4ML NEB SOL INH SCH (16:07)
[2024-12-08 20:04] VITALS: BP 174/93; TEMP 97.5; O2SAT 96
[2024-12-09] VITALS (7 sets, daily range): BP systolic 150–198; BP diastolic 74–132; TEMP 96.8–97.5; O2SAT 92–98
[2024-12-09] MEDS: predniSONE 20 MG TAB PO SCH (08:47)
[2024-12-09] MEDS: ATORVASTATIN 20 MG TAB PO SCH (09:00)
[2024-12-09] MEDS: amLODIPine 5 MG TAB PO SCH (09:22)
[2024-12-09 09:37] LABS: BASO # 0.0 10^3/uL (0.0-0.2); BASO % 0.3 % (0.0-1.0); EOS # 0.2 10^3/uL (0.0-0.5); EOS % 1.1 % (0.0-3.0); LYMPH # 2.8 10^3/uL (1.5-5.0); LYMPH % 18.3 % (24.0-44.0); MONO # 0.7 10^3/uL (0.0-0.8); MONO % 4.2 % (2.0-8.0); NEUTROPHILS # 11.3 10^3/uL (1.5-8.5); NEUTROPHILS % 73.6 % (36.0-66.0); PLATELET COUNT, AUTOMATED 261 10^3/uL (150-450)
[2024-12-09 09:59] LABS: CALCIUM LEVEL 8.4 MG/DL (8.5-10.1); CARBON DIOXIDE LEVEL 25.0 MMOL/L (20-31); CHLORIDE LEVEL 106.0 MMOL/L (98-107); CREATININE FOR GFR 3.88 MG/DL (0.55-1.30); GLOMERULAR FILTRATION RATE 14.8 (>60); PHOSPHORUS LEVEL 3.8 MG/DL (2.5-4.9); POTASSIUM SERUM 3.2 MMOL/L (3.5-5.1); SODIUM LEVEL 142.0 MMOL/L (136-145)
[2024-12-09] MEDS: ONDANSETRON 4MG 2ML VIAL IV PRN (18:42)
[2024-12-09] MEDS: PANTOPRAZOLE 40MG VIAL IV ONE (18:42)
[2024-12-09] MEDS: PROPRANOLOL 20 MG TAB PO SCH (21:21)
[2024-12-10 04:41] VITALS: BP 160/103; TEMP 97; O2SAT 96
[2024-12-10 06:25] LABS: BASO # 0.0 10^3/uL (0.0-0.2); BASO % 0.1 % (0.0-1.0); EOS # 0.3 10^3/uL (0.0-0.5); EOS % 1.8 % (0.0-3.0); LYMPH # 3.1 10^3/uL (1.5-5.0); LYMPH % 19.0 % (24.0-44.0); MONO # 0.8 10^3/uL (0.0-0.8); MONO % 4.9 % (2.0-8.0); NEUTROPHILS # 11.7 10^3/uL (1.5-8.5); NEUTROPHILS % 73.0 % (36.0-66.0); PLATELET COUNT, AUTOMATED 263 10^3/uL (150-450)
[2024-12-10 06:46] LABS: CALCIUM LEVEL 8.7 MG/DL (8.5-10.1); CARBON DIOXIDE LEVEL 28.0 MMOL/L (20-31); CHLORIDE LEVEL 105.0 MMOL/L (98-107); CREATININE FOR GFR 3.78 MG/DL (0.55-1.30); GLOMERULAR FILTRATION RATE 15.3 (>60); POTASSIUM SERUM 3.8 MMOL/L (3.5-5.1); SODIUM LEVEL 146.0 MMOL/L (136-145)
[2024-12-10] MEDS: PANTOPRAZOLE 40MG TAB PO SCH (09:12)
[2024-12-10 12:00] VITALS: BP 156/95; TEMP 97.2; O2SAT 97
[2024-12-10] MEDS: **hydrALAZINE HCL** 25 MG TAB PO SCH (12:18)
[2024-12-10 19:59] VITALS: BP 136/80; TEMP 97.9; O2SAT 94
[2024-12-11] VITALS (12 sets, daily range): BP systolic 139–210; BP diastolic 84–118; TEMP 96.8–97.5; O2SAT 91–99
[2024-12-11] MEDS: LORazepam 0.5 MG TAB PO STA
[2024-12-11] MEDS: **hydrALAZINE HCL** 25 MG TAB PO ONE ×2 (00:53→05:07)
[2024-12-11] MEDS ORDERED: amLODIPine 10 MG TAB PO ONE (04:45)
[2024-12-11] MEDS: amLODIPine 5 MG TAB PO ONE (05:07)
[2024-12-11 06:31] LABS: BASO # 0.0 10^3/uL (0.0-0.2); BASO % 0.2 % (0.0-1.0); EOS # 0.3 10^3/uL (0.0-0.5); EOS % 1.9 % (0.0-3.0); LYMPH # 2.9 10^3/uL (1.5-5.0); LYMPH % 18.4 % (24.0-44.0); MONO # 0.9 10^3/uL (0.0-0.8); MONO % 6.0 % (2.0-8.0); NEUTROPHILS # 11.3 10^3/uL (1.5-8.5); NEUTROPHILS % 72.8 % (36.0-66.0); PLATELET COUNT, AUTOMATED 266 10^3/uL (150-450)
[2024-12-11 06:54] LABS: CALCIUM LEVEL 9.0 MG/DL (8.5-10.1); CARBON DIOXIDE LEVEL 29.0 MMOL/L (20-31); CHLORIDE LEVEL 102.0 MMOL/L (98-107); CREATININE FOR GFR 3.76 MG/DL (0.55-1.30); GLOMERULAR FILTRATION RATE 15.4 (>60); POTASSIUM SERUM 4.4 MMOL/L (3.5-5.1); SODIUM LEVEL 140.0 MMOL/L (136-145)
[2024-12-11] MEDS: **hydrALAZINE** 50 MG TAB PO SCH (08:12)
[2024-12-11] MEDS: amLODIPine 10 MG TAB PO SCH (20:32)
[2024-12-12 04:37] VITALS: BP 159/91; TEMP 97.3; O2SAT 96
[2024-12-12 06:05] LABS: BASO # 0.0 10^3/uL (0.0-0.2); BASO % 0.1 % (0.0-1.0); EOS # 0.2 10^3/uL (0.0-0.5); EOS % 1.5 % (0.0-3.0); LYMPH # 3.0 10^3/uL (1.5-5.0); LYMPH % 20.2 % (24.0-44.0); MONO # 0.9 10^3/uL (0.0-0.8); MONO % 6.1 % (2.0-8.0); NEUTROPHILS # 10.8 10^3/uL (1.5-8.5); NEUTROPHILS % 71.6 % (36.0-66.0); PLATELET COUNT, AUTOMATED 276 10^3/uL (150-450)
[2024-12-12 06:29] LABS: CALCIUM LEVEL 8.5 MG/DL (8.5-10.1); CARBON DIOXIDE LEVEL 25.0 MMOL/L (20-31); CHLORIDE LEVEL 102.0 MMOL/L (98-107); CREATININE FOR GFR 3.43 MG/DL (0.55-1.30); GLOMERULAR FILTRATION RATE 17.2 (>60); POTASSIUM SERUM 4.5 MMOL/L (3.5-5.1); SODIUM LEVEL 137.0 MMOL/L (136-145)
[2024-12-12 08:09] VITALS: BP 152/89
[2024-12-12] MEDS: predniSONE 10 MG TAB PO SCH (08:12)
[2024-12-12 12:00] VITALS: BP 135/91; TEMP 96.8; O2SAT 95
[2024-12-12] MEDS ORDERED: AMLO1TAB25 PO (12:39)
[2024-12-12] MEDS ORDERED: CLONI1TA PO (12:39)
[2024-12-12] MEDS ORDERED: HYDR50TA46 PO (12:39)
[2024-12-12] MEDS ORDERED: PRED10TA2 PO (12:39)
[2024-12-12] MEDS ORDERED: PANT40TA29 PO (12:39)
[2024-12-13] MEDS ORDERED: CLON0.5T2 PO (07:43)
[2024-12-13] MEDS ORDERED: AMPH1TAB2 PO (07:43)
== END 2024-12-12 15:42 | DRG 812 ==
LOC: M ED 09:28 → EDBD 09:28 → M ED INP 10:50 → M ICU 11:38 → M MSPAV 12-07 04:35
PROVIDERS: ADMIT Internal Medicine Pulmonary Disease; ATTEND Internal Medicine Nephrology
PROC: 0BH17EZ Insertion of Endotracheal Airway into Trachea, Via Natural or Artificial Opening (ICD-10-PCS; principal; 2024-11-29)
PROC: 5A1945Z Respiratory Ventilation, 24-96 Consecutive Hours (ICD-10-PCS; 2024-11-29)
PROC: 02HV33Z Insertion of Infusion Device into Superior Vena Cava, Percutaneous Approach (ICD-10-PCS; 2024-12-02)
PROC: 5A1D70Z Performance of Urinary Filtration, Intermittent, Less than 6 Hours Per Day (ICD-10-PCS; 2024-12-03)
DX: T40.3X2A Poisoning by methadone, intentional self-harm, initial encounter (principal); K72.00 Acute and subacute hepatic failure without coma; N17.0 Acute kidney failure with tubular necrosis; J69.0 Pneumonitis due to inhalation of food and vomit; G92.8 Other toxic encephalopathy; J96.01 Acute respiratory failure with hypoxia; L89.220 Pressure ulcer of left hip, unstageable; J96.02 Acute respiratory failure with hypercapnia; E87.4 Mixed disorder of acid-base balance; F33.2 Major depressive disorder, recurrent severe without psychotic features; M62.82 Rhabdomyolysis; F43.10 Post-traumatic stress disorder, unspecified; E87.0 Hyperosmolality and hypernatremia; E83.42 Hypomagnesemia; F11.20 Opioid dependence, uncomplicated; E87.6 Hypokalemia; E66.813 Obesity, class 3; F41.1 Generalized anxiety disorder; M79.7 Fibromyalgia; I16.0 Hypertensive urgency; D64.9 Anemia, unspecified; G89.29 Other chronic pain; R73.9 Hyperglycemia, unspecified; I10 Essential (primary) hypertension; E78.5 Hyperlipidemia, unspecified; F90.9 Attention-deficit hyperactivity disorder, unspecified type; F17.210 Nicotine dependence, cigarettes, uncomplicated; G47.33 Obstructive sleep apnea (adult) (pediatric); F19.20 Other psychoactive substance dependence, uncomplicated; Z68.42 Body mass index [BMI] 45.0-49.9, adult; Z79.899 Other long term (current) drug therapy; Z88.8 Allergy status to other drugs, medicaments and biological substances; Z88.5 Allergy status to narcotic agent

== ENCOUNTER 2025-01-26 08:36 | Emergency (ER) | payer MEDICAID, OTHER ==
[~2025-01-26] VITALS: Ht 170.2 cm; Wt 134.0 kg
[~2025-01-26 08:36] MED LIST changes: +ADDE20TA PO; +ADDE30TA PO; +AMLO1TAB25 PO; +ATOR1TAB21 PO; +CLON0.5T2 PO; +CLONI1TA PO; +GABA-1172 PO; +HYDR-3363 PO; +HYDR50TA46 PO; +PRED10TA2 PO; +PROP20TA72 PO; +VENTAER INH; +med rec comment
[2025-01-26] MEDS ORDERED: SPIR-10 (08:48)
[2025-01-26 09:39] LABS: BASO # 0.0 10^3/uL (0.0-0.2); BASO % 0.5 % (0.0-1.0); EOS # 0.3 10^3/uL (0.0-0.5); EOS % 4.8 % (0.0-3.0); LYMPH # 2.5 10^3/uL (1.5-5.0); LYMPH % 39.0 % (24.0-44.0); MONO # 0.5 10^3/uL (0.0-0.8); MONO % 8.1 % (2.0-8.0); NEUTROPHILS # 3.0 10^3/uL (1.5-8.5); NEUTROPHILS % 47.4 % (36.0-66.0); PLATELET COUNT, AUTOMATED 304 10^3/uL (150-450)
[2025-01-26 09:59] LABS: HCG, SERUM QUALITATIVE NEGATIVE (NEGATIVE)
[2025-01-26 10:12] LABS: ALT/SGPT 20 U/L (7.0-40); AST/SGOT 43 U/L (<34); CALCIUM LEVEL 9.4 MG/DL (8.5-10.1); CARBON DIOXIDE LEVEL 29 MMOL/L (20-31); CHLORIDE LEVEL 99 MMOL/L (98-107); CREATININE FOR GFR 0.75 MG/DL (0.55-1.30); GLOMERULAR FILTRATION RATE > 90.0 (>60); POTASSIUM SERUM 5.2 MMOL/L (3.5-5.1); SODIUM LEVEL 137 MMOL/L (136-145)
[2025-01-26 11:13] LABS: CK-MB VALUE MASS 5.7 NG/ML (<3.6)
[2025-01-26 11:16] LABS: CPK CREATINE PHOSPHOKINASE 183 U/L (34-145); MB/CK RELATIVE INDEX 3.11 (< OR =4)
[2025-01-26 12:04] LABS: CK-MB VALUE MASS 4.8 NG/ML (<3.6)
[2025-01-26 12:05] LABS: CPK CREATINE PHOSPHOKINASE 157 U/L (34-145); MB/CK RELATIVE INDEX 3.05 (< OR =4)
[2025-01-26 14:16] VITALS: O2SAT 94
[2025-01-26 14:30] VITALS: BP 122/61
[2025-01-26] MEDS ORDERED: CEPH500C PO (14:38)
[2025-01-26] MEDS ORDERED: DOXY-441 PO (14:38)
[2025-01-26 14:45] VITALS: TEMP 98.2
== END 2025-01-26 14:50 | disposition home or self-care (01) ==
LOC: M ED 08:36
DX: L03.116 Cellulitis of left lower limb (principal); R93.6 Abnormal findings on diagnostic imaging of limbs; I45.81 Long QT syndrome; I10 Essential (primary) hypertension; E78.5 Hyperlipidemia, unspecified; G47.33 Obstructive sleep apnea (adult) (pediatric); K21.9 Gastro-esophageal reflux disease without esophagitis; F90.9 Attention-deficit hyperactivity disorder, unspecified type; F17.290 Nicotine dependence, other tobacco product, uncomplicated; Z88.5 Allergy status to narcotic agent; Z88.8 Allergy status to other drugs, medicaments and biological substances; Z79.51 Long term (current) use of inhaled steroids; Z79.2 Long term (current) use of antibiotics; Z79.899 Other long term (current) drug therapy

== ENCOUNTER → 2025-02-27 | Outpatient (REF) | payer OTHER ==
[~2025-02-27] MED LIST changes: +CEPH500C PO; +DOXY-441 PO; +SPIR-10; +SULF-7 PO; -SULF1TAB23 PO
[2025-02-27 16:43] LABS: BASO # 0.0 10^3/uL (0.0-0.2); BASO % 0.4 % (0.0-1.0); EOS # 0.2 10^3/uL (0.0-0.5); EOS % 3.1 % (0.0-3.0); LYMPH # 2.8 10^3/uL (1.5-5.0); LYMPH % 38.9 % (24.0-44.0); MONO # 0.4 10^3/uL (0.0-0.8); MONO % 6.0 % (2.0-8.0); NEUTROPHILS # 3.7 10^3/uL (1.5-8.5); NEUTROPHILS % 51.5 % (36.0-66.0); PLATELET COUNT, AUTOMATED 345 10^3/uL (150-450)
[2025-02-27 16:47] LABS: CHOLESTEROL LEVEL 179.0 MG/DL (<200); CHOLESTEROL RISK RATIO 5.31 (<5); LDL CHOLESTEROL 97.5 MG/DL (<100); NON-HDL-C 145.3 MG/DL; TRIGLYCERIDES LEVEL 239.0 MG/DL (<150)
[2025-02-27 16:48] LABS: IRON (FE) 32.0 UG/DL (50-170); PERCENT SATURATION 9.3 % (13.2-45.0)
[2025-02-27 17:30] LABS: ESTIMATED AVERAGE GLUCOSE 103.0 MG/DL (60-110)
== END ==
LOC: M LAB REF 16:17
PROVIDERS: ATTEND Physician Assistant
DX: D64.9 Anemia, unspecified (principal); E78.2 Mixed hyperlipidemia; I10 Essential (primary) hypertension; R60.0 Localized edema